=== PATIENT | male | born 1960 | race Caucasian/White ===

== ENCOUNTER → 2016-06-19 | Day surgery (SDC) | payer OTHER ==
[~2016-06-19] MED LIST: LACTATED RINGER'S 1000 ML INJ 1,000 ML ONE; PROPOFOL 500 MG/50 ML BTL IV ONE
--- NOTE | 2016-06-19 12:40 | GIPROC ---
[facility] [address], [id number] COLONOSCOPY PROCEDURE REPORT EXAM DATE: 06/19/2016 PATIENT NAME: Walker Villar MR #: [id number] BIRTHDATE: 1960 ENDOSCOPIST: Rufus Sen MD ORDER #: [id number] CATEGORY DIRECTOR: Shannon Linares RN STATUS: outpatient INDICATIONS: The patient is a 56 yr old male here for a colonoscopy due to high risk patient with personal history of colonic polyps PROCEDURE PERFORMED: Colonoscopy with polypectomy MEDICATIONS: None and Per Anesthesia. PREP QUALITY: fair ESTIMATED BLOOD LOSS: None CONSENT: The patient understands the risks and benefits of the procedure and understands that these risks include, but are not limited to: sedation, allergic reaction, infection, perforation and/or bleeding. Alternative means of evaluation and treatment include, among others: physical exam, x-rays, and/or surgical intervention. The patient elects to proceed with this endoscopic procedure. medical equipment was checked for proper function. Hand hygiene and appropriate measures for infection prevention was taken. After the risks, benefits and alternatives of the procedure were thoroughly explained, Informed consent was verified, confirmed and timeout was successfully executed by the treatment team. A digital exam revealed no abnormalities of the rectum The [id number] ([id number]) endoscope was introduced through the anus and advanced to the cecum, which was identified by both the appendix and ileocecal valve. The instrument was then slowly withdrawn as the colon was fully examined. COLON FINDINGS: Two medium sized smooth sessile polyps were found in the distal transverse colon and sigmoid colon. A polypectomy was performed with a cold snare. The resection was complete and the polyp tissue was completely retrieved. The colon mucosa was otherwise normal. Retroflexed views revealed no abnormalities The scope was then completely withdrawn from the patient and the procedure terminated. PROCEDURE WITHDRAWAL TIME:13.8minutes ADVERSE EVENTS: There were no complications. IMPRESSIONS: 1. Two medium sized sessile polyps were found in the distal transverse colon and sigmoid colon; polypectomy was performed with a cold snare 2. The colon mucosa was otherwise normal 3. Retroflexed views revealed no abnormalities 4. Revealed no abnormalities of the rectum RECOMMENDATIONS: 1. Await biopsy results. Biopsy results will not be ready for 7-10 days. If you don't hear from us in two weeks, call our office for results. 2. Yearly hemoccult 3. High fiber diet 4. Follow-up: GI Clinic PRN RECALL: Return 5 years Colonoscopy Rufus Sen MD eSigned: Rufus Sen MD 06/19/2016 12:40 PM cc: Khris Lopez M.D and Blaine Benjamin [facility] Brenda
== END | disposition home or self-care (01) ==
LOC: ESDC 10:54
PROVIDERS: ATTEND Internal Medicine Gastroenterology
DX: Z12.11 Encounter for screening for malignant neoplasm of colon (principal); Z86.010 Personal history of colon polyps; D12.3 Benign neoplasm of transverse colon; D12.5 Benign neoplasm of sigmoid colon
CPT/HCPCS: 00810; 45385; 88305; J3010; J7120

== ENCOUNTER 2017-09-21 13:29 | Inpatient (IN) ==
[2017-09-21] MEDS ORDERED: Vancomycin Inj 1,500 MG in Sodium Chlor 0.9% Inj 500 ML IV.SIG ONE (14:01)
[2017-09-21] MEDS ORDERED: Acetaminophen 500 MG Tablet PO ONE (14:03)
--- NOTE | 2017-09-21 14:13 | ED ---
HPI General Chief complaint: Dizziness Stated complaint: lt leg pain/dizzy/shakes x lastnight Time Seen by Provider: 09/21/17 13:48 History of Present Illness HPI narrative: This patient complains of pain and redness and warmth and swelling in his left leg. Started a day and a half ago. Severity of symptoms is moderate. He developed fever and chills. He has chronic swelling in both legs but the left leg is worse than usual. No injury. No alleviating factors. No exacerbating factors. Related Data Home Medications Medication Instructions Recorded Confirmed No Known Home Medications 09/21/17 09/21/17 Allergies Allergy/AdvReac Type Severity Reaction Status Date / Time No Known Allergies Allergy Unknown NONE Uncoded 09/21/17 13:37 Review of Systems Except as stated in HPI: all other systems reviewed are negative [facility] Medical History Medical History Patient denies medical problems (Acute) Surgical History Surgical History No history of previous surgery (Acute) Social History Social History Substance History: No History of Abuse Smoking Status: Current every day smoker Tobacco Type: Cigarettes How Often Do You Have a Drink Containing Alcohol: 2 to 3 times a week Recent Travel in [facility] within the Last 8 Weeks: No Recent Out of Country Travel within the Last 8 Weeks: No Immunization History Tetanus Immunization: Unsure Hx Influenza Vaccine This Season: No Exam Narrative Exam Narrative: GENERAL: Well-nourished, well-developed patient with leg swelling and redness and fever . SKIN: Focused skin assessment reveals no rash and nodules. Skin is Warm and dry. HEAD: Atraumatic. Normocephalic. EYES: Pupils equal and round. No scleral icterus. No injection or drainage. ENT: No nasal bleeding or discharge. Mucous membranes pink and moist. Throat clear NECK: Trachea midline. No JVD. No meningeal signs CARDIOVASCULAR: Regular rate and rhythm. No murmur appreciated. RESPIRATORY: No accessory muscle use. Clear to auscultation. Breath sounds equal bilaterally. GASTROINTESTINAL: Abdomen soft, non-tender, nondistended. Hepatic and splenic margins not palpable. MUSCULOSKELETAL: No obvious deformities. No clubbing. No cyanosis. Has edema in both feet and lower legs. The left leg has warmth and erythema over the guzmán region. Some of the foot as well. There is a patch of erythema near the left groin. NEUROLOGICAL: Awake and alert. No obvious cranial nerve deficits. Motor grossly within normal limits. Normal speech. PSYCHIATRIC: Appropriate mood and affect; insight and judgment normal. Course Initial Documented Vital Signs Temperature 102.5 F H 09/21/17 13:37 Pulse Rate 114 H 09/21/17 13:37 Blood Pressure 146/66 H 09/21/17 13:37 Pulse Oximetry 92 L 09/21/17 13:37 Last Documented Vital Signs Temperature 102.5 F H 09/21/17 13:37 Pulse Rate 114 H 09/21/17 13:37 Blood Pressure 146/66 H 09/21/17 13:37 Pulse Oximetry 92 L 09/21/17 13:37 Medical Decision Making MDM Narrative Medical decision making narrative: IV placed and labs sent Blood cultures obtained 2 followed by 1.5 g IV vancomycin I am ordering an ultrasound to rule out DVT but I think this is more cellulitis consistent Tylenol given for fever DVT ultrasound is negative He has prominent leukocytosis with normal metabolic's Patient is febrile and tachycardic and his cellulitis is fairly rapidly progressive. I would recommend IV antibiotics in the hospital. I placed a call to the [facility] physician to discuss Differential Diagnosis Differential Diagnosis: Cellulitis, DVT, sepsis Medical Records Medical records reviewed: Yes I reviewed the patient's medical records. Lab Data Result diagrams: 09/21/17 14:30 09/21/17 14:30 Lab Results 09/21/17 09/21/17 09/21/17 Range/Units 14:30 14:30 14:30 CBC w Diff Auto diff final WBC 19.9 H (4.0-11.0) th/mm3 RBC 5.02 (4.50-5.90) mil/mm3 Hgb 14.4 (13.0-17.0) gm/dL Hct 43.0 (39.0-51.0) % MCV 85.6 (80.0-100.0) fL MCH 28.7 (27.0-34.0) pg MCHC 33.5 (32.0-36.0) % RDW 14.0 (11.6-17.2) % Plt Count 198 (150-450) th/mm3 MPV 8.6 (7.0-11.0) fL Neut % (Auto) 92.5 H (16.0-70.0) % Lymph % (Auto) 3.8 L (9.0-44.0) % [place] % (Auto) 2.1 (0.0-8.0) % Eos % (Auto) 0.0 (0.0-4.0) % Baso % (Auto) 1.6 (0.0-2.0) % Neut # (Auto) 18.4 H (1.8-7.7) th/mm3 Lymph # (Auto) 0.8 L (1.0-4.8) th/mm3 [place] # (Auto) 0.4 (0.0-0.9) th/mm3 Eos # (Auto) 0.0 (0.0-0.4) th/mm3 Baso # (Auto) 0.3 H (0.0-0.2) th/mm3 WBC Differential . Differential Comment . PT 11.2 (9.8-11.6) sec INR 1.1 Ratio APTT 29.4 (24.3-30.1) sec Sodium 135 L (136-145) meq/L Potassium 3.8 (3.5-5.1) meq/L Chloride 104 (98-107) meq/L Carbon Dioxide 25.5 (21.0-32.0) meq/L Anion Gap 6 (5-15) meq/L BUN 17 (7-18) mg/dL Creatinine 1.30 (0.60-1.30) mg/dL Estimated GFR 57 L (>89) mL/min Random Glucose 100 (74-106) mg/dL Calcium 8.1 L (8.5-10.1) mg/dL Imaging Data Radiologist's impression: Venous Doppler Study 09/21/17 14:03 CONCLUSION: 1. Negative for deep venous thrombosis. Discharge Plan Discharge Disposition Patient Disposition: 30 Still Patient Discharge Details Diagnosis: Cellulitis of left lower leg Physicians Team ED Provider: Deon Diaz Primary Care Provider: Khris Lopez Rxs /Orders / Referrals /Forms Prescriptions: No Action No Known Home Medications RF: 0 Status ED Status: Admitted Patient
[2017-09-21 14:47] LABS: Baso # (Auto) 0.3 th/mm3 (0.0-0.2); Baso % (Auto) 1.6 % (0.0-2.0); Hemoglobin 14.4 gm/dL (13.0-17.0); Lymph # (Auto) 0.8 th/mm3 (1.0-4.8); Lymph % (Auto) 3.8 % (9.0-44.0); Mean Corpuscular HGB Conc 33.5 % (32.0-36.0); Mean Corpuscular Hemoglobin 28.7 pg (27.0-34.0); Mean Corpuscular Volume 85.6 fL (80.0-100.0); Mean Platelet Volume 8.6 fL (7.0-11.0); Mono # (Auto) 0.4 th/mm3 (0.0-0.9); Mono % (Auto) 2.1 % (0.0-8.0); Neut # (Auto) 18.4 th/mm3 (1.8-7.7); Neut % (Auto) 92.5 % (16.0-70.0); Platelet Count 198 th/mm3 (150-450); Red Blood Count 5.02 mil/mm3 (4.50-5.90); White Blood Count 19.9 th/mm3 (4.0-11.0)
[2017-09-21 14:55] LABS: Potassium 3.8 meq/L (3.5-5.1)
[2017-09-21 14:57] LABS: Calcium 8.1 mg/dL (8.5-10.1)
[2017-09-21 14:58] LABS: Carbon Dioxide 25.5 meq/L (21.0-32.0)
[2017-09-21 15:00] LABS: Activated Partial Thrombo Time 29.4 sec (24.3-30.1); INR 1.1 Ratio; Prothrombin Time 11.2 sec (9.8-11.6)
--- NOTE | 2017-09-21 15:09 | US ---
EXAM DATE: 09/21/2017 3:04 PM EDT AGE/SEX: 57 years / Male INDICATIONS: Left leg redness, pain, and swelling. CLINICAL DATA: This is the patient's initial encounter. Patient reports that signs and symptoms have been present for 1 day and indicates a pain score of 10/10. MEDICAL/SURGICAL HISTORY: . Left leg redness, pain, and swelling. None. COMPARISON: No prior exams available for comparison. TECHNIQUE: Venous ultrasound of both lower extremities was performed from the inguinal ligament to t he proximal calf. Real-time, color Doppler and spectral tracing, compression and augmentation techni ques were used. FINDINGS: Normal compression of the deep venous system from the inguinal region to the proximal calf . No echogenic clot is seen. Normal response of the venous system to augmentation and respiration. CONCLUSION: 1. Negative for deep venous thrombosis. Electronically signed by: Alex Bae MD 09/21/2017 3:08 PM EDT
[2017-09-21] MEDS ORDERED: Vancomycin Consult Pharmacy 1 EACH OTHER SCH (16:19)
[2017-09-21] MEDS ORDERED: Sod Chloride 0.9% Inj 1,000 ML IV.CONT SCH (16:21)
[2017-09-21] MEDS: Enoxaparin Inj 40 MG/0.4 ML Syringe SQ SCH (16:45)
[2017-09-21] MEDS ORDERED: Vancomycin Inj 1,500 MG in Sodium Chlor 0.9% Inj 500 ML IV.SIG SCH (17:00)
[2017-09-21] MEDS: Acetaminophen 325 MG Tablet PO PRN (17:38)
[2017-09-21] MEDS: Sod Chloride 0.9% Inj 1,000 ML IV.CONT SCH ×3 (17:59→18:29)
--- NOTE | 2017-09-21 18:12 | P.HP ---
History of Present Illness Primary Care Physician: Khris Lopez MD History of Present Illness: States that last pm at around 8 to 830 developed sudden onset of chills and malaise. Had been in usual state of health no other symptoms, no cough (other then his regular smokers cough) no sob, no abdominal pain or change in bowel movements, no difficulyu voiding , he has chronic lower extremity edema at baseline, he does state that he had some left groin discomfort that at this point is resolved. He took 4 ibuprofen pm last night to help with the chills. When he felt no better he came to the ER today. He states when he lowered his pants was when the redness in his left leg became noticeable. He denies any pain to the leg unless it is touched, he recalls no injury or cut to his left leg. - Diagnosis (1) Cellulitis of left lower leg (2) Wheezing on auscultation (3) Lower extremity edema (4) AMINA (obstructive sleep apnea) Inpatient Certification: I certify that the inpatient services were ordered in accordance with Medicare regulations governing the order. This includes certification that hospital inpatient services are reasonable and necessary and in the case of services not specified as inpatient-only under 42 CFR 419.22(n), that they are appropriately provided as inpatient services in accordance to with the 2-midnight benchmark under 43 CFR 412.3(e) Estimated Total Length of Stay (Days): 2 Plans for Post Hospital Care: Not yet determined Review of Systems All other systems reviewed negative except as stated in HPI [facility] - History History Provided By: Patient, Medical Record - Medical History Medical History: Medical History (Last Updated 09/21/17 @ 17:53 by Lara Wilcox MD) Lower extremity edema Morbid obesity with BMI of 45.0-49.9, adult AMINA (obstructive sleep apnea) Vascular insufficiency of extremity - Surgical History Surgical History: Surgical History (Last Updated 09/21/17 @ 17:53 by Lara Wilcox MD) H/O arthroscopic knee surgery - Family History Family History: Family History (Last Updated 09/21/17 @ 17:54 by Lara Wilcox MD) Father Family history of diabetes mellitus Mother Family history of diabetes mellitus COPD (chronic obstructive pulmonary disease) - Tobacco History Tobacco Use In Past 30 Days: Yes Smoking Status: Current every day smoker Tobacco Type: Cigarettes Packs Per Day: 1.5 - Alcohol History How Often Do You Have a Drink Containing Alcohol: 2 to 3 times a week - Substance Use History Substance History: No History of Abuse - Travel History Recent Travel in the [place] Within the Last 8 Weeks: No Recent Travel Out of the Country Within the Last 8 Weeks: No - Immunization History Tetanus Immunization: Unsure Hx Influenza Vaccine This Season: No Medications and Allergies Active Medications: Active Medications Acetaminophen (Tylenol) 650 mg PO Q4H PRN PRN Reason: TEMP>100.4F,PAIN1-10,IRRITABLE Last Admin: 09/21/17 17:38 Dose: 650 mg Al Hydroxide/Mg Hydroxide (Milk Of Magnesia Liq) 30 ml PO Q12H PRN PRN Reason: Mild Constipation Enoxaparin Sodium (Lovenox Inj) 40 mg SQ Q24H ISHAN Last Admin: 09/21/17 16:45 Dose: 40 mg Pharmacy Profile Note (Vancomycin Consult Pharmacy) 0 mls @ 0 mls/hr OTHER UNSCH ISHAN Vancomycin HCl 1,500 mg/ (Sodium Chloride) 515 mls @ 250 mls/hr IV.SIG Q12H ISHAN Sodium Chloride (Ns Inj) 1,000 mls @ 100 mls/hr IV.CONT .Q10H ISHAN Sodium Chloride (Ns Inj) 1,000 mls @ 125 mls/hr IV.CONT .Q8H ISHAN Ondansetron HCl (Zofran Inj) 4 mg IV.PUSH Q6H PRN PRN Reason: NAUSEA OR VOMITING Sennosides (Senokot) 17.2 mg PO Q12H PRN PRN Reason: Moderate Constipation Temazepam (Restoril) 15 mg PO HS PRN PRN Reason: INSOMNIA Allergies Allergy/AdvReac Type Severity Reaction Status Date / Time No Known Allergies Allergy Unknown NONE Uncoded 09/21/17 13:37 Home Medications Medication Instructions Recorded Confirmed Type No Known Home Medications 09/21/17 09/21/17 History Exam Vital signs: Vital Signs 09/21/17 13:37 09/21/17 16:05 09/21/17 16:13 Temperature 102.5 F H 99.9 F H Pulse Rate 114 H 103 H Respiratory Rate 16 Blood Pressure 146/66 H 119/54 L Pulse Oximetry 92 L 100 Intake & Output 09/20/17 09/21/17 09/21/17 18:59 06:59 18:59 Intake Total 515 / 515 Balance 515 / 515 Weight 175.5 kg Intake: IV 515 / 515 Vancomycin Inj 1,500 MG In NS 515 / 515 Inj 500 ML @ 250 mls/hr IV.SIG ONCE ONE Rx#:[id number] - Constitutional moderate distress, morbidly obese - Routine HEENT Exam Head: Present: normocephalic Eye: Present: EOMI ENT: Present: mucous membranes moist - Routine Respiratory Exam Present: wheezes - Routine Cardiovascular Exam Present: RRR - Routine Abdominal Exam Present: soft, normoactive bowel sounds - Routine Extremities Exam Present: edema Comments: bilateral edema left greater then right - Routine Skin Exam Present: erythema, warm, scars Comments: left lower extremity red, hot from dorsum of foot to knee circumferential , tender to touch, no skin breakdown or wounds, rt knee scars from prior arthoscopic surgery - Routine Neurological Exam Present: alert, oriented X3 Results - Labs CBC & Chem 7: 09/21/17 14:30 09/21/17 14:30 Labs: Laboratory Results - last 24 hr 09/21/17 09/21/17 09/21/17 14:30 14:30 14:30 CBC w Diff Auto diff final WBC 19.9 H RBC 5.02 Hgb 14.4 Hct 43.0 MCV 85.6 MCH 28.7 MCHC 33.5 RDW 14.0 Plt Count 198 MPV 8.6 Neut % (Auto) 92.5 H Lymph % (Auto) 3.8 L [place] % (Auto) 2.1 Eos % (Auto) 0.0 Baso % (Auto) 1.6 Neut # (Auto) 18.4 H Lymph # (Auto) 0.8 L [place] # (Auto) 0.4 Eos # (Auto) 0.0 Baso # (Auto) 0.3 H WBC Differential . Differential Comment . PT 11.2 INR 1.1 APTT 29.4 Sodium 135 L Potassium 3.8 Chloride 104 Carbon Dioxide 25.5 Anion Gap 6 BUN 17 Creatinine 1.30 Estimated GFR 57 L Random Glucose 100 Calcium 8.1 L - Imaging Impressions Venous Doppler Study 09/21/17 14:03 CONCLUSION: 1. Negative for deep venous thrombosis. Caprini VTE Risk Assessment Caprini VTE Risk Assessment: No/Low Risk (score <= 1) Caprini Risk Assessment Model: Point Value = 1 Point Value = 2 Point Value = 3 Point Value = 5 Age 41-60 Minor surgery BMI > 25 kg/m2 Swollen legs Varicose veins or History of unexplained or recurrent spontaneous Oral contraceptives or hormone replacement Sepsis (< 1 month) Serious lung disease, including pneumonia (< 1 month) Abnormal pulmonary function Acute myocardial infarction Congestive heart failure (< 1 month) History of inflammatory bowel disease Medical patient at bed rest Age 61-74 Arthroscopic surgery Major open surgery (> 45 min) Laparoscopic surgery (> 45 min) Malignancy Confined to bed (> 72 hours) Immobilizing plaster cast Central venous access Age >= 75 History of VTE Family history of VTE Factor V Leiden Prothrombin [id number] Lupus anticoagulant Anticardiolipin antibodies Elevated serum homocysteine Heparin-induced thrombocytopenia Other congenital or acquired thrombophilia Stroke (< 1 month) Elective arthroplasty Hip, pelvis, or leg fracture Acute spinal cord injury (< 1 month) Prophylaxis Regimen: Total Risk Factor Score Risk Level Prophylaxis Regimen 0-1 Low Early ambulation 2 Moderate Order ONE of the following: *Sequential Compression Device (SCD) *Heparin 5000 units SQ BID 3-4 Higher Order ONE of the following medications: *Heparin 5000 units SQ TID *Enoxaparin/Lovenox 40 mg SQ daily (WT < 150 kg, CrCl > 30 mL/min) *Enoxaparin/Lovenox 30 mg SQ daily (WT < 150 kg, CrCl > 10-29 mL/min) *Enoxaparin/Lovenox 30 mg SQ BID (WT < 150 kg, CrCl > 30 mL/min) AND/OR *Sequential Compression Device (SCD) 5 or more Highest Order ONE of the following medications: *Heparin 5000 units SQ TID (Preferred with Epidurals) *Enoxaparin/Lovenox 40 mg SQ daily (WT < 150 kg, CrCl > 30 mL/min) *Enoxaparin/Lovenox 30 mg SQ daily (WT < 150 kg, CrCl > 10-29 mL/min) *Enoxaparin/Lovenox 30 mg SQ BID (WT < 150 kg, CrCl > 30 mL/min) AND *Sequential Compression Device (SCD) Assessment and Plan - Assessment (1) Cellulitis of left lower leg Code(s): L03.116 - Cellulitis of left lower limb Status: Acute Plan: started on vancomycin IV, acetaminophen to control fever, he doesnt really complain of pain (2) Wheezing on auscultation Code(s): R06.2 - Wheezing Status: Acute Onset Date: ~09/21/17 Plan: bryan , he states he doesnt have inhalers but uses his wifes, has chronic cough, still smokes, will address smoking cessation (3) Lower extremity edema Code(s): R60.0 - Localized edema Status: Chronic Plan: states his primary has done extensive work up may delay response to treatment, will keep elevated, his leg is tender to touch so compression stockings would cause his pain at this point (4) AMINA (obstructive sleep apnea) Code(s): G47.33 - Obstructive sleep apnea (adult) (pediatric) Status: Chronic Plan: have asked family to bring machine in from home
[2017-09-21] MEDS: Vancomycin Inj 2,200 MG in Sodium Chlor 0.9% Inj 500 ML IV.SIG SCH (23:14)
[2017-09-22] MEDS: Sod Chloride 0.9% Inj 1,000 ML IV.CONT SCH ×5 (01:50→18:36)
[2017-09-22] MEDS: Acetaminophen 325 MG Tablet PO PRN ×4 (01:51→20:41)
[2017-09-22 06:41] LABS: Baso # (Auto) 0.1 th/mm3 (0.0-0.2); Baso % (Auto) 0.4 % (0.0-2.0); Eos % (Auto) 0.1 % (0.0-4.0); Hematocrit 40.2 % (39.0-51.0); Hemoglobin 13.6 gm/dL (13.0-17.0); Lymph # (Auto) 1.1 th/mm3 (1.0-4.8); Lymph % (Auto) 6.5 % (9.0-44.0); Mean Corpuscular HGB Conc 33.7 % (32.0-36.0); Mean Corpuscular Hemoglobin 28.9 pg (27.0-34.0); Mean Corpuscular Volume 85.5 fL (80.0-100.0); Mean Platelet Volume 8.6 fL (7.0-11.0); Mono # (Auto) 0.3 th/mm3 (0.0-0.9); Mono % (Auto) 1.8 % (0.0-8.0); Neut # (Auto) 15.5 th/mm3 (1.8-7.7); Neut % (Auto) 91.2 % (16.0-70.0); Platelet Count 157 th/mm3 (150-450); Red Blood Count 4.69 mil/mm3 (4.50-5.90); Red Cell Distribution Width 14.3 % (11.6-17.2)
[2017-09-22 06:49] LABS: Chloride 101 meq/L (98-107); Potassium 4.1 meq/L (3.5-5.1); Sodium 135 meq/L (136-145)
[2017-09-22 06:54] LABS: Calcium 7.9 mg/dL (8.5-10.1)
[2017-09-22 06:55] LABS: Albumin 2.8 g/dL (3.4-5.0); Anion Gap 7 meq/L (5-15); Blood Urea Nitrogen 20 mg/dL (7-18); Carbon Dioxide 27.5 meq/L (21.0-32.0); Glucose,Random 110 mg/dL (74-106)
[2017-09-22 06:58] LABS: Alanine Aminotransferase 58 U/L (12-78); Aspartate Aminotransferase 41 U/L (15-37); Glomerular Filtration Rate 48 mL/min (>89)
[2017-09-22 07:00] LABS: Total Protein 6.8 g/dL (6.4-8.2)
[2017-09-22 07:01] LABS: Alkaline Phosphatase 82 U/L (45-117)
--- NOTE | 2017-09-22 11:18 | P.PN ---
Subjective Interval history: not feeling well, still feverish, decreased appetite, using his cpap, no pain in the leg, general malaise Physical Exam Vital signs: Vital Signs 09/21/17 13:37 09/21/17 16:05 09/21/17 16:13 Temperature 102.5 F H 99.9 F H Pulse Rate 114 H 103 H Respiratory Rate 16 Blood Pressure 146/66 H 119/54 L Pulse Oximetry 92 L 100 09/21/17 17:48 09/21/17 19:38 09/21/17 20:00 Temperature 99.4 F 102.8 F H Pulse Rate 96 H 103 H 101 H Respiratory Rate 20 20 20 Blood Pressure 171/74 H 121/80 Pulse Oximetry 94 L 95 96 09/22/17 00:00 09/22/17 07:25 09/22/17 08:00 Temperature 102.4 F H 101.0 F H Pulse Rate 107 H 110 H 107 H Respiratory Rate 20 24 20 Blood Pressure 141/72 H Pulse Oximetry 94 L 93 L Intake & Output 09/21/17 09/22/17 09/22/17 18:59 06:59 18:59 Intake Total 515 / 515 2522 / 2522 1240 / 1240 Output Total 240 / 240 Balance 515 / 515 2522 / 2522 1000 / 1000 Weight 175.3 kg 178.5 kg Intake: IV 515 / 515 2522 / 2522 1000 / 1000 NS Inj 1,000 ML @ 125 mls/hr IV 2000 / 2000 1000 / 1000 .CONT .Q8H ISHAN Rx#:[id number] Vancomycin Inj 2,200 MG In NS 515 / 515 522 / 522 Inj 500 ML @ 261 mls/hr IV.SIG Q12H ISHAN Rx#:[id number] Oral 240 / 240 Output: Urine 240 / 240 Other: # Voids 5 # Bowel Movements 1 Weight On Admission 175.3 kg - Constitutional mild distress, morbidly obese Comments: looks very uncomfortable , using his cpap - Routine HEENT Exam Head: Present: normocephalic Eye: Present: EOMI - Routine Respiratory Exam Present: CTA bilaterally - Routine Cardiovascular Exam Present: tachycardia - Routine Abdominal Exam Present: soft - Routine Skin Exam Comments: left lower extremity erythema dorsum of foot to knee, circumferential, no obvious skin breakdown, less hot to touch today - Routine Neurological Exam Present: alert Results - Labs CBC & Chem 7: 09/22/17 05:42 09/22/17 05:42 Laboratory Results - last 24 hr 09/21/17 09/21/17 09/21/17 14:30 14:30 14:30 CBC w Diff Auto diff final WBC 19.9 H RBC 5.02 Hgb 14.4 Hct 43.0 MCV 85.6 MCH 28.7 MCHC 33.5 RDW 14.0 Plt Count 198 MPV 8.6 Neut % (Auto) 92.5 H Lymph % (Auto) 3.8 L [place] % (Auto) 2.1 Eos % (Auto) 0.0 Baso % (Auto) 1.6 Neut # (Auto) 18.4 H Lymph # (Auto) 0.8 L [place] # (Auto) 0.4 Eos # (Auto) 0.0 Baso # (Auto) 0.3 H WBC Differential . Differential Comment . PT 11.2 INR 1.1 APTT 29.4 Sodium 135 L Potassium 3.8 Chloride 104 Carbon Dioxide 25.5 Anion Gap 6 BUN 17 Creatinine 1.30 Estimated GFR 57 L Random Glucose 100 Calcium 8.1 L Total Bilirubin AST ALT Alkaline Phosphatase Total Protein Albumin 09/22/17 09/22/17 05:42 05:42 CBC w Diff Auto diff final WBC 17.0 H RBC 4.69 Hgb 13.6 Hct 40.2 MCV 85.5 MCH 28.9 MCHC 33.7 RDW 14.3 Plt Count 157 MPV 8.6 Neut % (Auto) 91.2 H Lymph % (Auto) 6.5 L [place] % (Auto) 1.8 Eos % (Auto) 0.1 Baso % (Auto) 0.4 Neut # (Auto) 15.5 H Lymph # (Auto) 1.1 [place] # (Auto) 0.3 Eos # (Auto) 0.0 Baso # (Auto) 0.1 WBC Differential . Differential Comment . PT INR APTT Sodium 135 L Potassium 4.1 Chloride 101 Carbon Dioxide 27.5 Anion Gap 7 BUN 20 H Creatinine 1.50 H Estimated GFR 48 L Random Glucose 110 H Calcium 7.9 L Total Bilirubin 0.8 AST 41 H ALT 58 Alkaline Phosphatase 82 Total Protein 6.8 Albumin 2.8 L - Imaging Impressions Venous Doppler Study 09/21/17 14:03 CONCLUSION: 1. Negative for deep venous thrombosis. Assessment and Plan - Assessment (1) Cellulitis of left lower leg Code(s): L03.116 - Cellulitis of left lower limb Status: Acute Plan: started on vancomycin IV, acetaminophen to control fever, had had only one dose of antibiotic, pharmacy adjusting should be geting second dose at noon, still with temperature, will ask ID to see him, he looks toxic and his chronic lower ext edema and venous insuffiency may prolong course (2) Wheezing on auscultation Code(s): R06.2 - Wheezing Status: Acute Onset Date: ~09/21/17 Plan: duonebs , started last night, lungs clear today anteriorly, subjectively he feels it helps (3) Lower extremity edema Code(s): R60.0 - Localized edema Status: Acute Plan: states his primary has done extensive work up may delay response to treatment, will keep elevated, his leg is tender to touch so compression stockings would cause his pain at this point , hold off on diuretics as renal function a little lower today (4) AMINA (obstructive sleep apnea) Code(s): G47.33 - Obstructive sleep apnea (adult) (pediatric) Status: Chronic Plan: he is using his cpap. he is a large man. will have him try to sit in recliner with leg elevated to help with pulmonary function - Plan Discussed Condition With: patient and
[2017-09-22] MEDS: Vancomycin Inj 2,200 MG in Sodium Chlor 0.9% Inj 500 ML IV.SIG SCH (12:10)
[2017-09-22] MEDS: Enoxaparin Inj 40 MG/0.4 ML Syringe SQ SCH (18:35)
--- NOTE | 2017-09-22 19:00 | P.CONID ---
History of Present Illness Service: ID Consult date: 09/22/17 Requesting Physician: Lara Wilcox Reason for Consult: LLE cellulits Primary Care Provider: Khris Lopez MD History of Present Illness: 57 yo male with morbid obesity and chronic venostaiss developped marked swelling and redness and pain of his LLE with redness extending from the foot up to the groin He also developped fever, chills He started to have nausea after abx were stasrted He thinks his leg somewhat better today, though it still remains markedly swollen and red Fever up to 102.8 yday, WBC in 19K range blood clx are negative so far @ 1 day Pt was started on vancomycin Review of Systems All other systems reviewed negative except as stated in HPI PMFSH - History History Provided By: Patient, Medical Record - Medical History Medical History: Medical History (Last Reviewed 11/20/17 @ 10:34 by Dunia Boo MD) Lower extremity edema Morbid obesity with BMI of 45.0-49.9, adult AMINA (obstructive sleep apnea) Vascular insufficiency of extremity - Surgical History Surgical History: Surgical History (Last Reviewed 11/20/17 @ 10:34 by Dunia Boo MD) H/O arthroscopic knee surgery - Family History Family History: Family History (Last Reviewed 11/20/17 @ 10:34 by Dunia Boo MD) Father Family history of diabetes mellitus Mother Family history of diabetes mellitus COPD (chronic obstructive pulmonary disease) - Social History I have reviewed the patient's Social History: Yes - Tobacco History Second Hand Smoke Exposure: No Tobacco Use In Past 30 Days: Yes Smoking Status: Current every day smoker Tobacco Type: Cigarettes Packs Per Day: 1.5 - Alcohol History How Often Do You Have a Drink Containing Alcohol: 2 to 3 times a week - Substance Use History Substance History: No History of Abuse - Travel History Recent Travel in the [place] Within the Last 8 Weeks: No Recent Travel Out of the Country Within the Last 8 Weeks: No - Immunization History Tetanus Immunization: Unsure Hx Influenza Vaccine This Season: No Medications and Allergies Active Medications: Active Medications Acetaminophen (Tylenol) 650 mg PO Q4H PRN PRN Reason: TEMP>100.4F,PAIN1-10,IRRITABLE Last Admin: 09/22/17 13:42 Dose: 650 mg Al Hydroxide/Mg Hydroxide (Milk Of Magnesia Liq) 30 ml PO Q12H PRN PRN Reason: Mild Constipation Albuterol (Duoneb Neb (Rudi)) 1 ampul NEB Q6HR WHILE AWAKE NEB [facility] Last Admin: 09/22/17 13:43 Dose: 1 ampul Enoxaparin Sodium (Lovenox Inj) 40 mg SQ Q24H [facility] Last Admin: 09/22/17 18:35 Dose: 40 mg Pharmacy Profile Note (Vancomycin Consult Pharmacy) 0 mls @ 0 mls/hr OTHER UNSCH [facility] Vancomycin HCl 2,200 mg/ (Sodium Chloride) 522 mls @ 261 mls/hr IV.SIG Q12H [facility] Last Infusion: 09/22/17 14:16 Dose: Infused Sodium Chloride (Ns Inj) 1,000 mls @ 150 mls/hr IV.CONT .Q6H40M [facility] Last Admin: 09/22/17 18:36 Dose: 150 mls/hr Miscellaneous Information ([facility] [place]dered Lab Info) 0 each OTHER ONCE ONE Stop: 09/22/17 23:46 Ondansetron HCl (Zofran Inj) 4 mg IV.PUSH Q6H PRN PRN Reason: NAUSEA OR VOMITING Last Admin: 09/22/17 14:52 Dose: 4 mg Sennosides (Senokot) 17.2 mg PO Q12H PRN PRN Reason: Moderate Constipation Temazepam (Restoril) 15 mg PO HS PRN PRN Reason: INSOMNIA Allergies Allergy/AdvReac Type Severity Reaction Status Date / Time No Known Allergies Allergy Unknown NONE Uncoded 09/21/17 13:37 Exam Vital signs: Vital Signs 09/21/17 19:38 09/21/17 20:00 09/22/17 00:00 Temperature 102.8 F H 102.4 F H Pulse Rate 103 H 101 H 107 H Respiratory Rate 20 20 20 Blood Pressure 121/80 141/72 H Pulse Oximetry 95 96 94 L 09/22/17 07:25 09/22/17 08:00 09/22/17 12:00 Temperature 101.0 F H 99.3 F Pulse Rate 110 H 107 H 90 Respiratory Rate 24 20 22 Blood Pressure 138/60 Pulse Oximetry 93 L 94 L 96 09/22/17 13:48 09/22/17 16:00 Temperature 100.2 F H Pulse Rate 105 H 96 H Respiratory Rate 24 22 Blood Pressure 130/68 Pulse Oximetry 96 Intake & Output 09/21/17 09/22/17 09/22/17 18:59 06:59 18:59 Intake Total 515 / 515 2522 / 2522 3252 / 3252 Output Total 541 / 541 Balance 515 / 515 2522 / 2522 2711 / 2711 Weight 175.3 kg 178.5 kg Intake: IV 515 / 515 2522 / 2522 2522 / 2522 NS Inj 1,000 ML @ 150 mls/hr IV 1999 .CONT .Q6H40M [facility] Rx#: [id number] Vancomycin Inj 2,200 MG In NS 515 / 515 522 / 522 522 / 522 Inj 500 ML @ 261 mls/hr IV.SIG Q12H [facility] Rx#:[id number] Oral 730 / 730 Output: Urine 540 / 540 Stool Other: # Voids 5 Date of Last Bowel Movement 09/22/17 # Bowel Movements 1 Weight On Admission 175.3 kg - Constitutional no acute distress, morbidly obese - Routine HEENT Exam Head: Present: normocephalic, atraumatic Eye: Present: EOMI, PERRL ENT: Present: mucous membranes moist, oropharynx clear - Routine Respiratory Exam Present: decreased breath sounds, CTA bilaterally - Routine Cardiovascular Exam Present: RRR, S1, S2 Comments: no murmurs rusb gallops well perfused perifery - Routine Abdominal Exam Present: soft Comments: not tender not distendeed no organomeagly no masses - Routine Extremities Exam Present: edema (Marked O LLE 4+ and 2+ on RLE) Comments: STATuS LOCALIS marked erythema, edema of LLE with lymphangitic streaks extending to the L groin No fluctuance no open wound + tender to palpaation - Routine Skin Exam Present: warm, rash (LLE diffuse) - Routine Neurological Exam Present: alert, oriented X3, CN II-XII intact, moving all extremities, vision grossly intact, hearing grossly intact, normal speech - Routine Psychiatric Exam Present: normal affect, normal thought process Results - Labs CBC & Chem 7: 10/06/17 08:43 10/06/17 08:43 Labs: Laboratory Results - last 24 hr 09/22/17 09/22/17 05:42 05:42 CBC w Diff Auto diff final WBC 17.0 H RBC 4.69 Hgb 13.6 Hct 40.2 MCV 85.5 MCH 28.9 MCHC 33.7 RDW 14.3 Plt Count 157 MPV 8.6 Neut % (Auto) 91.2 H Lymph % (Auto) 6.5 L [place] % (Auto) 1.8 Eos % (Auto) 0.1 Baso % (Auto) 0.4 Neut # (Auto) 15.5 H Lymph # (Auto) 1.1 [place] # (Auto) 0.3 Eos # (Auto) 0.0 Baso # (Auto) 0.1 WBC Differential . Differential Comment . Sodium 135 L Potassium 4.1 Chloride 101 Carbon Dioxide 27.5 Anion Gap 7 BUN 20 H Creatinine 1.50 H Estimated GFR 48 L Random Glucose 110 H Calcium 7.9 L Total Bilirubin 0.8 AST 41 H ALT 58 Alkaline Phosphatase 82 Total Protein 6.8 Albumin 2.8 L Assessment and Plan - Plan Morbid obesity with chronicvenostasis LLE cellulitis Ancef cont vancomycin
[2017-09-22] MEDS ORDERED: ceFAZolin Inj 2,000 MG in Sodium Chlor 0.9% Inj 80 ML IV.SIG SCH (20:00)
[2017-09-22] MEDS ORDERED: ceFAZolin 2 GM Premix Inj 2 GM/100 ML BAG IV.SIG SCH (20:00)
[2017-09-22] MEDS: ceFAZolin 2 GM Premix Inj 2 GM/50 ML PIGGYBACK IV.SIG SCH (20:41)
[2017-09-22] MEDS: Temazepam 15 MG Capsule PO PRN (20:42)
[2017-09-22] MEDS ORDERED: Pharmacy Ordered Lab Info OTHER ONE (23:45)
[2017-09-23] MEDS: Vancomycin Inj 2,200 MG in Sodium Chlor 0.9% Inj 500 ML IV.SIG SCH ×2 (01:06→11:51)
[2017-09-23] MEDS: Sod Chloride 0.9% Inj 1,000 ML IV.CONT SCH ×4 (03:51→15:55)
[2017-09-23] MEDS: Acetaminophen 325 MG Tablet PO PRN ×3 (04:05→16:27)
[2017-09-23 06:00] LABS: Baso # (Auto) 0.1 th/mm3 (0.0-0.2); Baso % (Auto) 0.7 % (0.0-2.0); Hematocrit 37.1 % (39.0-51.0); Lymph # (Auto) 1.1 th/mm3 (1.0-4.8); Lymph % (Auto) 7.9 % (9.0-44.0); Mean Corpuscular HGB Conc 32.3 % (32.0-36.0); Mean Corpuscular Hemoglobin 27.4 pg (27.0-34.0); Mean Corpuscular Volume 84.7 fL (80.0-100.0); Mean Platelet Volume 8.2 fL (7.0-11.0); Mono # (Auto) 0.2 th/mm3 (0.0-0.9); Mono % (Auto) 1.2 % (0.0-8.0); Neut % (Auto) 90.2 % (16.0-70.0); Platelet Count 129 th/mm3 (150-450); Red Blood Count 4.38 mil/mm3 (4.50-5.90); Red Cell Distribution Width 13.9 % (11.6-17.2); White Blood Count 13.4 th/mm3 (4.0-11.0)
[2017-09-23] MEDS: ceFAZolin 2 GM Premix Inj 2 GM/50 ML PIGGYBACK IV.SIG SCH ×3 (06:25→20:22)
[2017-09-23 06:36] LABS: Calcium 7.4 mg/dL (8.5-10.1); Carbon Dioxide 22.9 meq/L (21.0-32.0); Potassium 3.2 meq/L (3.5-5.1)
[2017-09-23 06:50] LABS: Total Protein 6.1 g/dL (6.4-8.2)
[2017-09-23 11:30] LABS: Chloride 100 meq/L (98-107); Potassium 3.5 meq/L (3.5-5.1); Sodium 133 meq/L (136-145)
[2017-09-23 11:33] LABS: Albumin 2.6 g/dL (3.4-5.0); Anion Gap 7 meq/L (5-15); Calcium 7.8 mg/dL (8.5-10.1); Carbon Dioxide 25.6 meq/L (21.0-32.0)
--- NOTE | 2017-09-23 11:33 | P.PN ---
Subjective Interval history: no new complaints, leg hurts when he walks on it , shivering when i walk in but he states he likes it cold, Physical Exam Vital signs: Vital Signs 09/22/17 12:00 09/22/17 13:48 09/22/17 16:00 Temperature 99.3 F 100.2 F H Pulse Rate 90 105 H 96 H Respiratory Rate 22 24 22 Blood Pressure 138/60 130/68 Pulse Oximetry 96 96 09/22/17 19:23 09/22/17 20:00 09/23/17 00:08 Temperature 102 F H 100.6 F H Pulse Rate 105 H 109 H 94 H Respiratory Rate 20 22 20 Blood Pressure 133/60 120/70 Pulse Oximetry 92 L 93 L 93 L 09/23/17 04:01 09/23/17 07:00 09/23/17 07:37 Temperature 102.3 F H Pulse Rate 91 H Respiratory Rate 20 Blood Pressure Pulse Oximetry 95 09/23/17 08:00 09/23/17 09:11 09/23/17 11:16 Temperature 96.9 F L 101.5 F H Pulse Rate 94 H Respiratory Rate 18 18 Blood Pressure 143/63 H Pulse Oximetry 94 L 96 Intake & Output 09/22/17 09/23/17 09/23/17 18:59 06:59 18:59 Intake Total 3252 / 3252 1530 / 1530 2572 / 2572 Output Total 541 / 541 Balance 2711 / 2711 1530 / 1530 2572 / 2572 Weight 181.4 kg Intake: IV 2522 / 2522 1050 / 1050 2572 / 2572 NS Inj 1,000 ML @ 150 mls/hr IV 1999 / 1999 1000 / 1000 1000 / 1000 .CONT .Q6H40M [facility] Rx#: [id number] Vancomycin Inj 2,200 MG In NS 522 / 522 522 / 522 Inj 500 ML @ 261 mls/hr IV.SIG Q12H [facility] Rx#:[id number] Ancef 2 GM Premix Inj 2 gm In 50 / 50 50 / 50 50 ml @ 100 mls/hr IV.SIG Q8H [facility] Rx#:[id number] Oral 730 / 730 480 / 480 Output: Urine 540 / 540 Stool Other: # Voids 3 Date of Last Bowel Movement 09/22/17 09/22/17 # Bowel Movements 1 - Constitutional mild distress, morbidly obese - Routine HEENT Exam Head: Present: normocephalic - Routine Respiratory Exam Present: CTA bilaterally - Routine Cardiovascular Exam Present: RRR - Routine Abdominal Exam Present: soft, normoactive bowel sounds - Routine Extremities Exam Present: edema - Routine Skin Exam Present: erythema (hot and red to knee , small patch above knee (left leg)) - Routine Neurological Exam Present: alert, oriented X3 Results - Labs CBC & Chem 7: 09/23/17 05:45 09/23/17 05:45 Laboratory Results - last 24 hr 09/23/17 09/23/17 09/23/17 00:00 05:45 05:45 CBC w Diff Auto diff final WBC 13.4 H RBC 4.38 L Hgb 12.0 L Hct 37.1 L MCV 84.7 MCH 27.4 MCHC 32.3 RDW 13.9 Plt Count 129 L MPV 8.2 Neut % (Auto) 90.2 H Lymph % (Auto) 7.9 L [place] % (Auto) 1.2 Eos % (Auto) 0.0 Baso % (Auto) 0.7 Neut # (Auto) 12.0 H Lymph # (Auto) 1.1 [place] # (Auto) 0.2 Eos # (Auto) 0.0 Baso # (Auto) 0.1 WBC Differential . Differential Comment . Sodium 133 L Potassium 3.2 L D Chloride 102 Carbon Dioxide 22.9 Anion Gap 8 BUN 17 Creatinine 1.20 Estimated GFR 63 L Random Glucose 129 H Calcium 7.4 L* Prot Corrected Calcium 7.9 L Total Protein 6.1 L D Vancomycin Trough 10.6 H Microbiology 09/21/17 14:30 Blood - Peripheral Aerobic Blood Culture - Preliminary No growth in 2 days 09/21/17 14:30 Blood - Peripheral Anaerobic Blood Culture - Preliminary No growth in 2 days 09/21/17 14:28 Blood - Peripheral Aerobic Blood Culture - Preliminary No growth in 2 days 09/21/17 14:28 Blood - Peripheral Anaerobic Blood Culture - Preliminary No growth in 2 days Assessment and Plan - Assessment (1) Cellulitis of left lower leg Code(s): L03.116 - Cellulitis of left lower limb Status: Acute Plan: started on vancomycin IV, acetaminophen to control fever, seen by ID yesterday Ancef added. Still with temp overnight (2) Wheezing on auscultation Code(s): R06.2 - Wheezing Status: Acute Onset Date: ~09/21/17 Plan: duonebs , started last night, lungs clear today anteriorly, subjectively he feels it helps discussed smoking cessation today, will place on nicotine patch (3) Lower extremity edema Code(s): R60.0 - Localized edema Status: Chronic Plan: states his primary has done extensive work up May delay response to treatment, will keep elevated, his leg is tender to touch so compression stockings would cause his pain at this point , (4) AMINA (obstructive sleep apnea) Code(s): G47.33 - Obstructive sleep apnea (adult) (pediatric) Status: Chronic Plan: he is using his cpap. he is a large man. using recliner and keeping leg elevated
[2017-09-23 11:34] LABS: Blood Urea Nitrogen 16 mg/dL (7-18); Glucose,Random 132 mg/dL (74-106)
[2017-09-23 11:43] LABS: Alanine Aminotransferase 153 U/L (12-78); Alkaline Phosphatase 92 U/L (45-117); Aspartate Aminotransferase 141 U/L (15-37); Glomerular Filtration Rate 57 mL/min (>89)
[2017-09-23] MEDS: Sod Chloride 0.9% Inj 1,000 ML IV.SIG SCH (15:00)
--- NOTE | 2017-09-23 15:19 | P.PNID ---
Subjective Remarks: Chart reviewed 57-year-old male came in with an acute onset of fever and chills, followed by pain on his left lower extremity from the groin all the way to the foot. When he presented to the hospital he was then noted to have redness on his left leg. No prior history of cellulitis. Has had chronic left lower extremity swelling for years. No trauma. No known problem with athlete's foot. Denies any respiratory complaint. No nausea or vomiting. Has been on IV vancomycin. ID evaluated the patient yesterday and started Ancef. Notes reviewed At the time my exam patient is having active rigors. He continues to be febrile. His WBC however is slowly improving. Antibiotics: Vancomycin Ancef Lines: No evidence of infection Past Medical History: Lower extremity edema Morbid obesity with BMI of 45.0-49.9, adult AMINA (obstructive sleep apnea) Vascular insufficiency of extremity H/O arthroscopic knee surgery Allergies/Adverse Reactions: Allergies No Known Allergies Allergy (Unknown, Uncoded 09/21/17 13:37) NONE Objective Vital Signs 09/22/17 16:00 09/22/17 19:23 09/22/17 20:00 Temperature 100.2 F H 102 F H Pulse Rate 96 H 105 H 109 H Respiratory Rate 22 20 22 Blood Pressure 130/68 133/60 Pulse Oximetry 96 92 L 93 L 09/23/17 00:08 09/23/17 04:01 09/23/17 07:00 Temperature 100.6 F H 102.3 F H Pulse Rate 94 H 91 H Respiratory Rate 20 20 Blood Pressure 120/70 Pulse Oximetry 93 L 09/23/17 07:37 09/23/17 08:00 09/23/17 09:11 Temperature 96.9 F L Pulse Rate 94 H Respiratory Rate 18 18 Blood Pressure 143/63 H Pulse Oximetry 95 94 L 96 09/23/17 11:16 09/23/17 12:00 Temperature 101.5 F H 100.8 F H Pulse Rate 94 H Respiratory Rate 18 Blood Pressure 116/53 L Pulse Oximetry 96 Intake & Output 09/22/17 09/23/17 09/23/17 18:59 06:59 18:59 Intake Total 3252 / 3252 1530 / 1530 3144 / 3144 Output Total 541 / 541 Balance 2711 / 2711 1530 / 1530 3144 / 3144 Weight 181.4 kg Intake: IV 2522 / 2522 1050 / 1050 3144 / 3144 NS Inj 1,000 ML @ 150 mls/hr IV 2000 / 1999 1000 / 1000 1000 / 1000 .CONT .Q6H40M ISHAN Rx#: [id number] Vancomycin Inj 2,200 MG In NS 522 / 522 1044 / 1044 Inj 500 ML @ 261 mls/hr IV.SIG Q12H [facility] Rx#:[id number] Ancef 2 GM Premix Inj 2 gm In 50 / 50 100 / 100 50 ml @ 100 mls/hr IV.SIG Q8H ISHAN Rx#:[id number] Oral 730 / 730 480 / 480 Output: Urine 540 / 540 Stool Other: # Voids 3 Date of Last Bowel Movement 09/22/17 09/22/17 # Bowel Movements 1 09/21/17 14:30 Blood - Peripheral Aerobic Blood Culture - Preliminary No growth in 2 days 09/21/17 14:30 Blood - Peripheral Anaerobic Blood Culture - Preliminary No growth in 2 days 09/21/17 14:28 Blood - Peripheral Aerobic Blood Culture - Preliminary No growth in 2 days 09/21/17 14:28 Blood - Peripheral Anaerobic Blood Culture - Preliminary No growth in 2 days Lab - Hematology Results 09/22/17 09/23/17 05:42 05:45 CBC w Diff Auto diff final Auto diff final WBC 17.0 H 13.4 H RBC 4.69 4.38 L Hgb 13.6 12.0 L Hct 40.2 37.1 L MCV 85.5 84.7 MCH 28.9 27.4 MCHC 33.7 32.3 RDW 14.3 13.9 Plt Count 157 129 L MPV 8.6 8.2 Neut % (Auto) 91.2 H 90.2 H Lymph % (Auto) 6.5 L 7.9 L [place] % (Auto) 1.8 1.2 Eos % (Auto) 0.1 0.0 Baso % (Auto) 0.4 0.7 Neut # (Auto) 15.5 H 12.0 H Lymph # (Auto) 1.1 1.1 [place] # (Auto) 0.3 0.2 Eos # (Auto) 0.0 0.0 Baso # (Auto) 0.1 0.1 WBC Differential . . Differential Comment . . Lab - Chemistry Results 09/22/17 09/23/17 09/23/17 05:42 05:45 11:11 Sodium 135 L 133 L 133 L Potassium 4.1 3.2 L D 3.5 Chloride 101 102 100 Carbon Dioxide 27.5 22.9 25.6 Anion Gap 7 8 7 BUN 20 H 17 16 Creatinine 1.50 H 1.20 1.30 Estimated GFR 48 L 63 L 57 L Random Glucose 110 H 129 H 132 H Calcium 7.9 L 7.4 L* 7.8 L Prot Corrected Calcium 7.9 L Total Bilirubin 0.8 0.5 AST 41 H 141 H ALT 58 153 H Alkaline Phosphatase 82 92 Total Protein 6.8 6.1 L D 7.0 D Albumin 2.8 L 2.6 L Imaging: ITS Impressions Venous Doppler Study 09/21/17 14:03 CONCLUSION: 1. Negative for deep venous thrombosis. Physical Exam: Physical Examination GENERAL: Patient is an obese, well-developed male, awake and alert, not in respiratory distress. Having avtive rigors at time of my exam SKIN: Warm and dry. No generalized rash, no ecchymoses and no evidence of embolic lesions. HEAD: Atraumatic. Normocephalic. No temporal wasting, or tenderness. EYES: [place] conjunctiva. No petechia or hemorrhage. Pupils equal, round and reactive to light. Extraocular movements full and intact. No scleral icterus. No injection or drainage. EARS, NOSE AND THROAT: Nose without bleeding or purulent nasal discharge. No sinus tenderness. Mucous membranes pink and moist. No oral lesions noted. No exudate. No oral thrush. NECK: Trachea midline. Supple and not tender, no meningeal signs CARDIOVASCULAR: Regular rate and rhythm. No murmurs, rubs or gallops heard RESPIRATORY: Clear to auscultation. Breath sounds equal bilaterally. No rales , wheezing or rhonchi ABDOMEN: Soft, non-tender, nondistended. Bowel sounds present and normoactive. No guarding. No rebound. No organomegaly. EXTREMITIES: No clubbing, cyanosis. LLE markedly larger compared to the RLE. There is erythema and induration from below the L knee to ankle area, with some areas that has [id number] texture, (+) warmth. No calf tenderness. NEUROLOGICAL: Awake and alert. Cranial nerves grossly intact. Motor grossly within normal limits. PSYCHIATRIC: Normal affect, calm and cooperative. LINE: No evidence of infection Assessment and Plan - Plan Impression Sepsis due to LLE cellulitis Acute onset cellulitis LLE, clinical presentation typical presentation of Strep Morbid obesity Chronic LLE edema Recommendation Continue IV Ancef Stop IV VAnco Give short course of Clindamycin to help with toxin effects of sepsis and Strep Elevate LLE Repeat BC Monitor progress I will follow along with you
[2017-09-23] MEDS: Clindamycin 900 mg/NS Premix 900 MG/50 ML PIGGYBACK IV.SIG SCH (16:20)
[2017-09-23] MEDS: Enoxaparin Inj 40 MG/0.4 ML Syringe SQ SCH (16:27)
[2017-09-23] MEDS ORDERED: Ketorolac Inj 30 MG/ML (IVP) Vial IV.PUSH ONE (17:45)
[2017-09-23] MEDS: Temazepam 15 MG Capsule PO PRN (21:10)
[2017-09-24] MEDS: Acetaminophen 325 MG Tablet PO PRN ×2 (00:22→20:28)
[2017-09-24] MEDS: Clindamycin 900 mg/NS Premix 900 MG/50 ML PIGGYBACK IV.SIG SCH ×3 (00:55→15:07)
[2017-09-24] MEDS: Sod Chloride 0.9% Inj 1,000 ML IV.SIG SCH ×2 (03:44→15:24)
[2017-09-24] MEDS: ceFAZolin 2 GM Premix Inj 2 GM/50 ML PIGGYBACK IV.SIG SCH ×3 (03:51→20:29)
[2017-09-24 07:00] LABS: Baso % (Auto) 0.2 % (0.0-2.0); Eos % (Auto) 0.1 % (0.0-4.0); Hemoglobin 11.7 gm/dL (13.0-17.0); Lymph # (Auto) 1.1 th/mm3 (1.0-4.8); Lymph % (Auto) 9.5 % (9.0-44.0); Mean Corpuscular HGB Conc 34.4 % (32.0-36.0); Mean Corpuscular Hemoglobin 28.7 pg (27.0-34.0); Mean Corpuscular Volume 83.3 fL (80.0-100.0); Mean Platelet Volume 8.7 fL (7.0-11.0); Mono # (Auto) 0.4 th/mm3 (0.0-0.9); Mono % (Auto) 3.3 % (0.0-8.0); Neut # (Auto) 9.9 th/mm3 (1.8-7.7); Neut % (Auto) 86.9 % (16.0-70.0); Platelet Count 120 th/mm3 (150-450); Red Blood Count 4.08 mil/mm3 (4.50-5.90); Red Cell Distribution Width 14.4 % (11.6-17.2); White Blood Count 11.4 th/mm3 (4.0-11.0)
[2017-09-24 07:02] LABS: Potassium 3.6 meq/L (3.5-5.1)
[2017-09-24 07:10] LABS: Albumin 2.1 g/dL (3.4-5.0); Calcium 7.4 mg/dL (8.5-10.1); Carbon Dioxide 25.5 meq/L (21.0-32.0)
[2017-09-24 07:36] LABS: Total Protein 6.1 g/dL (6.4-8.2)
--- NOTE | 2017-09-24 13:25 | P.PN ---
Subjective Interval history: Wheezing last pm, needed prn albuterol, ate breakfast today, leg still hurts when he stands on it. States he has been having diarrhea for last couple of days. No abdominal pain. Food doesnt taste good. Drinking fluids. Cpap broke last night. He normally glues it back together but it is now missing from the room. Family member has gone to buy one. Physical Exam Vital signs: Vital Signs 09/23/17 13:00 09/23/17 16:27 09/23/17 17:54 Temperature 102.9 F H 101 F H Pulse Rate 101 H Respiratory Rate 18 Blood Pressure Pulse Oximetry 09/23/17 19:35 09/23/17 20:00 09/23/17 23:58 Temperature 97.9 F Pulse Rate 84 85 105 H Respiratory Rate 20 18 20 Blood Pressure 111/59 L Pulse Oximetry 95 94 L 95 09/24/17 00:00 09/24/17 01:55 09/24/17 04:00 Temperature 100.2 F H 100.0 F H 100.1 F H Pulse Rate 101 H 97 H 95 H Respiratory Rate 18 18 Blood Pressure 128/65 124/64 Pulse Oximetry 94 L 93 L 97 09/24/17 07:41 09/24/17 08:00 Temperature 100.0 F H Pulse Rate 95 H 52 L Respiratory Rate 18 17 Blood Pressure 104/55 L Pulse Oximetry 95 95 Intake & Output 09/23/17 09/24/17 09/24/17 18:59 06:59 18:59 Intake Total 4694 / 4694 1390 / 1390 50 / 50 Output Total 150 / 150 250 / 250 Balance 4544 / 4544 1140 / 1140 50 / 50 Weight 181.4 kg Intake: IV 3194 / 3194 1150 / 1150 50 / 50 NS Inj 1,000 ML @ 150 mls/hr IV 1000 / 1000 .CONT .Q6H40M [facility] Rx#: [id number] Cleocin 900 mg/NS Premix 900 mg 50 / 50 50 / 50 50 / 50 In 50 ml @ 100 mls/hr IV.SIG Q8H IS[facility] Rx#:[id number] NS Inj 1,000 ML @ 100 mls/hr IV 1000 / 1000 .SIG .Q10H [facility] Rx#:[id number] Vancomycin Inj 2,200 MG In NS 1044 / 1044 Inj 500 ML @ 261 mls/hr IV.SIG Q12H [facility] Rx#:[id number] Ancef 2 GM Premix Inj 2 gm In 100 / 100 100 / 100 50 ml @ 100 mls/hr IV.SIG Q8H [facility] Rx#:[id number] Oral 1500 / 1500 240 / 240 Output: Urine 150 / 150 250 / 250 Other: # Voids 2 # Bowel Movements 2 2 - Constitutional mild distress, morbidly obese - Routine HEENT Exam Head: Present: normocephalic Eye: Present: EOMI ENT: Present: mucous membranes moist - Routine Respiratory Exam Present: CTA bilaterally - Routine Cardiovascular Exam Present: RRR - Routine Abdominal Exam Present: soft, normoactive bowel sounds Comments: exam performed with patient sitting uable to lie flat - Routine Extremities Exam Present: edema - Routine Skin Exam Present: erythema Comments: to knee , warm to touch , has developed blisters in calf and dorsum of foot - Routine Neurological Exam Present: alert - Routine Psychiatric Exam Present: normal affect Results - Labs CBC & Chem 7: 09/24/17 06:40 09/24/17 06:40 Laboratory Results - last 24 hr 09/24/17 09/24/17 06:40 06:40 CBC w Diff Auto diff final WBC 11.4 H RBC 4.08 L Hgb 11.7 L Hct 34.0 L MCV 83.3 MCH 28.7 MCHC 34.4 RDW 14.4 Plt Count 120 L MPV 8.7 Neut % (Auto) 86.9 H Lymph % (Auto) 9.5 [place] % (Auto) 3.3 Eos % (Auto) 0.1 Baso % (Auto) 0.2 Neut # (Auto) 9.9 H Lymph # (Auto) 1.1 [place] # (Auto) 0.4 Eos # (Auto) 0.0 Baso # (Auto) 0.0 WBC Differential . Differential Comment . Sodium 135 L Potassium 3.6 Chloride 102 Carbon Dioxide 25.5 Anion Gap 8 BUN 17 Creatinine 1.40 H Estimated GFR 52 L Random Glucose 111 H Calcium 7.4 L* Prot Corrected Calcium 7.9 L Total Bilirubin 0.6 AST 107 H ALT 133 H Alkaline Phosphatase 92 Total Protein 6.1 L D Albumin 2.1 L Microbiology 09/23/17 16:08 Blood - Peripheral Aerobic Blood Culture - Preliminary No growth in 1 day 09/23/17 16:08 Blood - Peripheral Anaerobic Blood Culture - Preliminary No growth in 1 day 09/23/17 16:18 Blood - Peripheral Aerobic Blood Culture - Preliminary No growth in 1 day 09/23/17 16:18 Blood - Peripheral Anaerobic Blood Culture - Preliminary No growth in 1 day 09/21/17 14:30 Blood - Peripheral Aerobic Blood Culture - Preliminary No growth in 3 days 09/21/17 14:30 Blood - Peripheral Anaerobic Blood Culture - Preliminary No growth in 3 days 09/21/17 14:28 Blood - Peripheral Aerobic Blood Culture - Preliminary No growth in 3 days 09/21/17 14:28 Blood - Peripheral Anaerobic Blood Culture - Preliminary No growth in 3 days - Imaging Venous Doppler Study 09/21/17 14:03 CONCLUSION: 1. Negative for deep venous thrombosis. Assessment and Plan - Assessment (1) Cellulitis of left lower leg Code(s): L03.116 - Cellulitis of left lower limb Status: Acute Plan: Off vancomycin, on ancef and clindamycin, white count improving and fevr curve beginning to improve (2) Wheezing on auscultation Code(s): R06.2 - Wheezing Status: Acute Onset Date: ~09/21/17 Plan: duonebs , started last night, lungs clear today anteriorly, subjectively he feels it helps discussed smoking cessation today, will place on nicotine patch with smoking history suspect COPD Current visit: Yes (3) Lower extremity edema Code(s): R60.0 - Localized edema Status: Chronic Plan: states his primary has done extensive work up May delay response to treatment, will keep elevated, his leg is tender to touch so compression stockings would cause his pain at this point , On Iv fluids due to fever eating better today fever curve seems to be coming down, will try decreasing IVfluids (4) AMINA (obstructive sleep apnea) Code(s): G47.33 - Obstructive sleep apnea (adult) (pediatric) Status: Chronic Plan: His cpap broke last night . he states family is getting one since DME supplier does not have in stock (5) COPD (chronic obstructive pulmonary disease) Code(s): J44.9 - Chronic obstructive pulmonary disease, unspecified Status: Suspected Plan: Will continue with Duonebs and prn oxygen continue on nicotine patch (5) COPD (chronic obstructive pulmonary disease) Qualifiers: COPD type: unspecified COPD Qualified Code(s): J44.9 - Chronic obstructive pulmonary disease, unspecified
--- NOTE | 2017-09-24 13:33 | P.PNID ---
Subjective Remarks: Chart reviewed 57-year-old male came in with an acute onset of fever and chills, followed by pain on his left lower extremity from the groin all the way to the foot. When he presented to the hospital he was then noted to have redness on his left leg. No prior history of cellulitis. Has had chronic left lower extremity swelling for years. No trauma. No known problem with athlete's foot. Denies any respiratory complaint. No nausea or vomiting. Has been on IV vancomycin. ID started Ancef 09/22. Notes reviewed Feels better Temps 100+ WBC lower Having frequent stools Antibiotics: Clindamycin Ancef Lines: No evidence of infection Past Medical History: Lower extremity edema Morbid obesity with BMI of 45.0-49.9, adult AMINA (obstructive sleep apnea) Vascular insufficiency of extremity H/O arthroscopic knee surgery Allergies/Adverse Reactions: Allergies No Known Allergies Allergy (Unknown, Uncoded 09/21/17 13:37) NONE Objective Vital Signs 09/23/17 16:27 09/23/17 17:54 09/23/17 19:35 Temperature 102.9 F H 101 F H Pulse Rate 84 Respiratory Rate 20 Blood Pressure Pulse Oximetry 95 09/23/17 20:00 09/23/17 23:58 09/24/17 00:00 Temperature 97.9 F 100.2 F H Pulse Rate 85 105 H 101 H Respiratory Rate 18 20 18 Blood Pressure 111/59 L 128/65 Pulse Oximetry 94 L 95 94 L 09/24/17 01:55 09/24/17 04:00 09/24/17 07:41 Temperature 100.0 F H 100.1 F H Pulse Rate 97 H 95 H 95 H Respiratory Rate 18 18 Blood Pressure 124/64 Pulse Oximetry 93 L 97 95 09/24/17 08:00 09/24/17 12:00 09/24/17 13:00 Temperature 100.0 F H 98.8 F Pulse Rate 52 L 94 H 95 H Respiratory Rate 17 20 18 Blood Pressure 104/55 L 101/65 Pulse Oximetry 95 96 Intake & Output 09/23/17 09/24/17 09/24/17 18:59 06:59 18:59 Intake Total 4694 / 4694 1390 / 1390 50 / 50 Output Total 150 / 150 250 / 250 Balance 4544 / 4544 1140 / 1140 50 / 50 Weight 181.4 kg Intake: IV 3194 / 3194 1150 / 1150 50 / 50 NS Inj 1,000 ML @ 150 mls/hr IV 1000 / 1000 .CONT .Q6H40M [facility] Rx#: [id number] Cleocin 900 mg/NS Premix 900 mg 50 / 50 50 / 50 50 / 50 In 50 ml @ 100 mls/hr IV.SIG Q8H [facility] Rx#:[id number] NS Inj 1,000 ML @ 100 mls/hr IV 1000 / 1000 .SIG .Q10H [facility] Rx#:[id number] Vancomycin Inj 2,200 MG In NS 1044 / 1044 Inj 500 ML @ 261 mls/hr IV.SIG Q12H [facility] Rx#:[id number] Ancef 2 GM Premix Inj 2 gm In 100 / 100 100 / 100 50 ml @ 100 mls/hr IV.SIG Q8H [facility] Rx#:[id number] Oral 1500 / 1500 240 / 240 Output: Urine 150 / 150 250 / 250 Other: # Voids 2 # Bowel Movements 2 2 09/23/17 16:08 Blood - Peripheral Aerobic Blood Culture - Preliminary No growth in 1 day 09/23/17 16:08 Blood - Peripheral Anaerobic Blood Culture - Preliminary No growth in 1 day 09/23/17 16:18 Blood - Peripheral Aerobic Blood Culture - Preliminary No growth in 1 day 09/23/17 16:18 Blood - Peripheral Anaerobic Blood Culture - Preliminary No growth in 1 day 09/21/17 14:30 Blood - Peripheral Aerobic Blood Culture - Preliminary No growth in 3 days 09/21/17 14:30 Blood - Peripheral Anaerobic Blood Culture - Preliminary No growth in 3 days 09/21/17 14:28 Blood - Peripheral Aerobic Blood Culture - Preliminary No growth in 3 days 09/21/17 14:28 Blood - Peripheral Anaerobic Blood Culture - Preliminary No growth in 3 days Lab - Hematology Results 09/23/17 09/24/17 05:45 06:40 CBC w Diff Auto diff final Auto diff final WBC 13.4 H 11.4 H RBC 4.38 L 4.08 L Hgb 12.0 L 11.7 L Hct 37.1 L 34.0 L MCV 84.7 83.3 MCH 27.4 28.7 MCHC 32.3 34.4 RDW 13.9 14.4 Plt Count 129 L 120 L MPV 8.2 8.7 Neut % (Auto) 90.2 H 86.9 H Lymph % (Auto) 7.9 L 9.5 Saline % (Auto) 1.2 3.3 Eos % (Auto) 0.0 0.1 Baso % (Auto) 0.7 0.2 Neut # (Auto) 12.0 H 9.9 H Lymph # (Auto) 1.1 1.1 Saline # (Auto) 0.2 0.4 Eos # (Auto) 0.0 0.0 Baso # (Auto) 0.1 0.0 WBC Differential . . Differential Comment . . Lab - Chemistry Results 09/23/17 09/23/17 09/24/17 05:45 11:11 06:40 Sodium 133 L 133 L 135 L Potassium 3.2 L D 3.5 3.6 Chloride 102 100 102 Carbon Dioxide 22.9 25.6 25.5 Anion Gap 8 7 8 BUN 17 16 17 Creatinine 1.20 1.30 1.40 H Estimated GFR 63 L 57 L 52 L Random Glucose 129 H 132 H 111 H Calcium 7.4 L* 7.8 L 7.4 L* Prot Corrected Calcium 7.9 L 7.9 L Total Bilirubin 0.5 0.6 AST 141 H 107 H ALT 153 H 133 H Alkaline Phosphatase 92 92 Total Protein 6.1 L D 7.0 D 6.1 L D Albumin 2.6 L 2.1 L Imaging: ITS Impressions Venous Doppler Study 09/21/17 14:03 CONCLUSION: 1. Negative for deep venous thrombosis. Physical Exam: Physical Examination GENERAL: Awake and alert, not in respiratory distress. SKIN: Warm and dry. No generalized rash, no ecchymoses and no evidence of embolic lesions. HEAD: Atraumatic. Normocephalic. No temporal wasting, or tenderness. EYES: [place] conjunctiva. No petechia or hemorrhage. Pupils equal, round and reactive to light. Extraocular movements full and intact. No scleral icterus. No injection or drainage. EARS, NOSE AND THROAT: Nose without bleeding or purulent nasal discharge. No sinus tenderness. Mucous membranes pink and moist. No oral lesions noted. No exudate. No oral thrush. NECK: Trachea midline. Supple and not tender, no meningeal signs CARDIOVASCULAR: Regular rate and rhythm. No murmurs, rubs or gallops heard RESPIRATORY: Clear to auscultation. Breath sounds equal bilaterally. No rales , wheezing or rhonchi ABDOMEN: Soft, non-tender, nondistended. Bowel sounds present and normoactive. No guarding. No rebound. No organomegaly. EXTREMITIES: No clubbing, cyanosis. LLE markedly larger compared to the RLE. There is erythema and induration from below the L knee to ankle area, with ihtp-[id number] texture, (+) warmth. Area of erythema has receded to ink jelly. No calf tenderness. NEUROLOGICAL: Awake and alert. Cranial nerves grossly intact. Motor grossly within normal limits. PSYCHIATRIC: Normal affect, calm and cooperative. LINE: No evidence of infection Assessment and Plan - Plan Impression Sepsis due to LLE cellulitis Acute onset cellulitis LLE, clinical presentation typical presentation of Strep Morbid obesity Chronic LLE edema Recommendation Continue IV Ancef Continue Clindamycin to help with toxin effects of sepsis and Strep Elevate LLE Follow C/S Monitor progress Explained plan to patient and D/W Dr Bojorquez
[2017-09-24] MEDS: Sod Chloride 0.9% Inj 1,000 ML IV.CONT SCH (15:05)
[2017-09-24] MEDS: Enoxaparin Inj 40 MG/0.4 ML Syringe SQ SCH ×2 (15:08→16:20)
[2017-09-24] MEDS: Temazepam 15 MG Capsule PO PRN (22:14)
[2017-09-25] MEDS: Clindamycin 900 mg/NS Premix 900 MG/50 ML PIGGYBACK IV.SIG SCH ×2 (01:43→09:05)
[2017-09-25] MEDS: ceFAZolin 2 GM Premix Inj 2 GM/50 ML PIGGYBACK IV.SIG SCH ×3 (04:41→21:07)
[2017-09-25] MEDS: Sod Chloride 0.9% Inj 1,000 ML IV.CONT SCH (04:44)
[2017-09-25 07:19] LABS: Baso % (Auto) 0.2 % (0.0-2.0); Eos % (Auto) 0.1 % (0.0-4.0); Hematocrit 33.1 % (39.0-51.0); Hemoglobin 11.4 gm/dL (13.0-17.0); Lymph # (Auto) 1.2 th/mm3 (1.0-4.8); Lymph % (Auto) 11.2 % (9.0-44.0); Mean Corpuscular HGB Conc 34.4 % (32.0-36.0); Mean Corpuscular Hemoglobin 28.4 pg (27.0-34.0); Mean Corpuscular Volume 82.6 fL (80.0-100.0); Mean Platelet Volume 9.4 fL (7.0-11.0); Mono # (Auto) 0.5 th/mm3 (0.0-0.9); Mono % (Auto) 4.8 % (0.0-8.0); Neut # (Auto) 9.4 th/mm3 (1.8-7.7); Neut % (Auto) 83.7 % (16.0-70.0); Platelet Count 143 th/mm3 (150-450); Red Blood Count 4.01 mil/mm3 (4.50-5.90); Red Cell Distribution Width 14.7 % (11.6-17.2); White Blood Count 11.1 th/mm3 (4.0-11.0)
[2017-09-25 07:31] LABS: Chloride 103 meq/L (98-107); Potassium 3.6 meq/L (3.5-5.1); Sodium 135 meq/L (136-145)
[2017-09-25 07:37] LABS: Albumin 1.9 g/dL (3.4-5.0); Calcium 7.5 mg/dL (8.5-10.1); Glucose,Random 103 mg/dL (74-106)
[2017-09-25 07:38] LABS: Anion Gap 7 meq/L (5-15); Blood Urea Nitrogen 15 mg/dL (7-18)
[2017-09-25 07:40] LABS: Alanine Aminotransferase 110 U/L (12-78); Aspartate Aminotransferase 89 U/L (15-37); Glomerular Filtration Rate 77 mL/min (>89)
[2017-09-25 07:42] LABS: Total Protein 5.8 g/dL (6.4-8.2)
[2017-09-25 07:43] LABS: Alkaline Phosphatase 105 U/L (45-117)
--- NOTE | 2017-09-25 13:15 | P.PN ---
Subjective Interval history: Still with lower extremity pain when standing. Food still tastes bad, diarrhea is better, no abdominal pain, Physical Exam Vital signs: Vital Signs 09/24/17 14:00 09/24/17 16:00 09/24/17 19:39 Temperature 99.9 F H 97.8 F Pulse Rate 96 H 92 H Respiratory Rate 19 20 Blood Pressure 132/83 Pulse Oximetry 97 94 L 09/24/17 20:34 09/25/17 00:00 09/25/17 07:37 Temperature 97.5 F L 96 F L 98.8 F Pulse Rate 94 H 86 86 Respiratory Rate 20 20 20 Blood Pressure 137/68 112/74 126/61 Pulse Oximetry 96 97 95 09/25/17 07:42 09/25/17 11:44 Temperature 97.1 F L Pulse Rate 85 84 Respiratory Rate 19 20 Blood Pressure 117/71 Pulse Oximetry 95 96 Intake & Output 09/24/17 09/25/17 09/25/17 18:59 06:59 18:59 Intake Total 1570 / 1570 2470 / 2470 1420 / 1420 Balance 1570 / 1570 2470 / 2470 1420 / 1420 Weight 181.4 kg Intake: IV 850 / 850 1050 / 1050 NS Inj 1,000 ML @ 70 mls/hr IV. 900 / 900 CONT .[id number] [facility] Rx#: [id number] Cleocin 900 mg/NS Premix 900 mg 100 / 100 50 / 50 In 50 ml @ 100 mls/hr IV.SIG Q8H [facility] Rx#:[id number] NS Inj 1,000 ML @ 100 mls/hr IV 700 / 700 .SIG .Q10H [facility] Rx#:[id number] Ancef 2 GM Premix Inj 2 gm In 50 / 50 100 / 100 50 ml @ 100 mls/hr IV.SIG Q8H [facility] Rx#:[id number] Oral 720 / 720 1420 / 1420 1420 / 1420 Other: # Voids 6 6 Date of Last Bowel Movement 09/24/17 # Bowel Movements 0 6 - Constitutional mild distress - Routine HEENT Exam Head: Present: normocephalic Eye: Present: EOMI ENT: Present: mucous membranes moist - Routine Respiratory Exam Present: CTA bilaterally - Routine Cardiovascular Exam Present: RRR - Routine Abdominal Exam Present: soft, normoactive bowel sounds - Routine Extremities Exam Present: edema Comments: rt greater then left - Routine Skin Exam Present: erythema Comments: erythema to knee warm to touch,blisters non purulent - Routine Neurological Exam Present: alert, oriented X3 Results - Labs CBC & Chem 7: 09/25/17 06:38 09/25/17 06:38 Laboratory Results - last 24 hr 09/24/17 09/25/17 09/25/17 13:10 06:38 06:38 CBC w Diff Slide review pending WBC 11.1 H RBC 4.01 L Hgb 11.4 L Hct 33.1 L MCV 82.6 MCH 28.4 MCHC 34.4 RDW 14.7 Plt Count 143 L MPV 9.4 Neut % (Auto) 83.7 H Lymph % (Auto) 11.2 [place] % (Auto) 4.8 Eos % (Auto) 0.1 Baso % (Auto) 0.2 Neut # (Auto) 9.4 H Lymph # (Auto) 1.2 [place] # (Auto) 0.5 Eos # (Auto) 0.0 Baso # (Auto) 0.0 WBC Differential . Diff Scan Auto diff confirmed Differential Comment . Sodium 135 L Potassium 3.6 Chloride 103 Carbon Dioxide 25.0 Anion Gap 7 BUN 15 Creatinine 1.00 Estimated GFR 77 L Random Glucose 103 Calcium 7.5 L Total Bilirubin 0.5 AST 89 H ALT 110 H Alkaline Phosphatase 105 Total Protein 5.8 L Albumin 1.9 L Stl C.difficile Tox PCR Negative St C. diff Tox Epid 027 Negative Microbiology 09/23/17 16:08 Blood - Peripheral Aerobic Blood Culture - Preliminary No growth in 2 days 09/23/17 16:08 Blood - Peripheral Anaerobic Blood Culture - Preliminary No growth in 2 days 09/23/17 16:18 Blood - Peripheral Aerobic Blood Culture - Preliminary No growth in 2 days 09/23/17 16:18 Blood - Peripheral Anaerobic Blood Culture - Preliminary No growth in 2 days 09/21/17 14:30 Blood - Peripheral Aerobic Blood Culture - Preliminary No growth in 4 days 09/21/17 14:30 Blood - Peripheral Anaerobic Blood Culture - Preliminary No growth in 4 days 09/21/17 14:28 Blood - Peripheral Aerobic Blood Culture - Preliminary No growth in 4 days 09/21/17 14:28 Blood - Peripheral Anaerobic Blood Culture - Preliminary No growth in 4 days Assessment and Plan - Assessment (1) Cellulitis of left lower leg Code(s): L03.116 - Cellulitis of left lower limb Status: Acute Plan: on ancef and clindamycin, white count improving and fever curve beginning to improve (2) Lower extremity edema Code(s): R60.0 - Localized edema Status: Chronic Plan: states his primary has done extensive work up May delay response to treatment, will keep elevated, his leg is tender to touch so compression stockings would cause his pain at this point , Will hold ivfluids low dose lasix (3) AMINA (obstructive sleep apnea) Code(s): G47.33 - Obstructive sleep apnea (adult) (pediatric) Status: Chronic Plan: His cpap broke last night . Was able to get cpap yesterday and had has resumed. (4) COPD (chronic obstructive pulmonary disease) Code(s): J44.9 - Chronic obstructive pulmonary disease, unspecified Status: Suspected Plan: will continue on oxygen try ventolin inhalers (4) COPD (chronic obstructive pulmonary disease) Qualifiers: COPD type: unspecified COPD Qualified Code(s): J44.9 - Chronic obstructive pulmonary disease, unspecified
--- NOTE | 2017-09-25 14:02 | P.PNID ---
Subjective Remarks: Chart reviewed 57-year-old male came in with an acute onset of fever and chills, followed by pain on his left lower extremity from the groin all the way to the foot. When he presented to the hospital he was then noted to have redness on his left leg. No prior history of cellulitis. Has had chronic left lower extremity swelling for years. No trauma. No known problem with athlete's foot. Denies any respiratory complaint. No nausea or vomiting. Has been on IV vancomycin. ID started Ancef 09/22. Notes reviewed Feels better Temps now normal WBC remains 11 BC negative Stools better Antibiotics: Clindamycin Ancef Lines: No evidence of infection Past Medical History: Lower extremity edema Morbid obesity with BMI of 45.0-49.9, adult AMINA (obstructive sleep apnea) Vascular insufficiency of extremity H/O arthroscopic knee surgery Allergies/Adverse Reactions: Allergies No Known Allergies Allergy (Unknown, Uncoded 09/21/17 13:37) NONE Objective Vital Signs 09/24/17 14:00 09/24/17 16:00 09/24/17 19:39 Temperature 99.9 F H 97.8 F Pulse Rate 96 H 92 H Respiratory Rate 19 20 Blood Pressure 132/83 Pulse Oximetry 97 94 L 09/24/17 20:34 09/25/17 00:00 09/25/17 07:37 Temperature 97.5 F L 96 F L 98.8 F Pulse Rate 94 H 86 86 Respiratory Rate 20 20 20 Blood Pressure 137/68 112/74 126/61 Pulse Oximetry 96 97 95 09/25/17 07:42 09/25/17 11:44 Temperature 97.1 F L Pulse Rate 85 84 Respiratory Rate 19 20 Blood Pressure 117/71 Pulse Oximetry 95 96 Intake & Output 09/24/17 09/25/17 09/25/17 18:59 06:59 18:59 Intake Total 1570 / 1570 2470 / 2470 1420 / 1420 Balance 1570 / 1570 2470 / 2470 1420 / 1420 Weight 181.4 kg Intake: IV 850 / 850 1050 / 1050 NS Inj 1,000 ML @ 70 mls/hr IV. 900 / 900 CONT .[id number] [facility] Rx#: [id number] Cleocin 900 mg/NS Premix 900 mg 100 / 100 50 / 50 In 50 ml @ 100 mls/hr IV.SIG Q8H [facility] Rx#:[id number] NS Inj 1,000 ML @ 100 mls/hr IV 700 / 700 .SIG .Q10H [facility] Rx#:[id number] Ancef 2 GM Premix Inj 2 gm In 50 / 50 100 / 100 50 ml @ 100 mls/hr IV.SIG Q8H [facility] Rx#:[id number] Oral 720 / 720 1420 / 1420 1420 / 1420 Other: # Voids 6 6 Date of Last Bowel Movement 09/24/17 # Bowel Movements 0 6 09/23/17 16:08 Blood - Peripheral Aerobic Blood Culture - Preliminary No growth in 2 days 09/23/17 16:08 Blood - Peripheral Anaerobic Blood Culture - Preliminary No growth in 2 days 09/23/17 16:18 Blood - Peripheral Aerobic Blood Culture - Preliminary No growth in 2 days 09/23/17 16:18 Blood - Peripheral Anaerobic Blood Culture - Preliminary No growth in 2 days 09/21/17 14:30 Blood - Peripheral Aerobic Blood Culture - Preliminary No growth in 4 days 09/21/17 14:30 Blood - Peripheral Anaerobic Blood Culture - Preliminary No growth in 4 days 09/21/17 14:28 Blood - Peripheral Aerobic Blood Culture - Preliminary No growth in 4 days 09/21/17 14:28 Blood - Peripheral Anaerobic Blood Culture - Preliminary No growth in 4 days Lab - Hematology Results 09/24/17 09/25/17 06:40 06:38 CBC w Diff Auto diff final Slide review pending WBC 11.4 H 11.1 H RBC 4.08 L 4.01 L Hgb 11.7 L 11.4 L Hct 34.0 L 33.1 L MCV 83.3 82.6 MCH 28.7 28.4 MCHC 34.4 34.4 RDW 14.4 14.7 Plt Count 120 L 143 L MPV 8.7 9.4 Neut % (Auto) 86.9 H 83.7 H Lymph % (Auto) 9.5 11.2 [place] % (Auto) 3.3 4.8 Eos % (Auto) 0.1 0.1 Baso % (Auto) 0.2 0.2 Neut # (Auto) 9.9 H 9.4 H Lymph # (Auto) 1.1 1.2 [place] # (Auto) 0.4 0.5 Eos # (Auto) 0.0 0.0 Baso # (Auto) 0.0 0.0 WBC Differential . . Diff Scan Auto diff confirmed Differential Comment . . Lab - Chemistry Results 09/24/17 09/25/17 06:40 06:38 Sodium 135 L 135 L Potassium 3.6 3.6 Chloride 102 103 Carbon Dioxide 25.5 25.0 Anion Gap 8 7 BUN 17 15 Creatinine 1.40 H 1.00 Estimated GFR 52 L 77 L Random Glucose 111 H 103 Calcium 7.4 L* 7.5 L Prot Corrected Calcium 7.9 L Total Bilirubin 0.6 0.5 AST 107 H 89 H ALT 133 H 110 H Alkaline Phosphatase 92 105 Total Protein 6.1 L D 5.8 L Albumin 2.1 L 1.9 L Imaging: ITS Impressions Venous Doppler Study 09/21/17 14:03 CONCLUSION: 1. Negative for deep venous thrombosis. Physical Exam: Physical Examination GENERAL: Awake and alert, not in respiratory distress. SKIN: Warm and dry. No generalized rash, no ecchymoses and no evidence of embolic lesions. HEAD: Atraumatic. Normocephalic. No temporal wasting, or tenderness. EYES: [place] conjunctiva. No petechia or hemorrhage. Pupils equal, round and reactive to light. Extraocular movements full and intact. No scleral icterus. No injection or drainage. EARS, NOSE AND THROAT: Nose without bleeding or purulent nasal discharge. No sinus tenderness. Mucous membranes pink and moist. No oral lesions noted. No exudate. No oral thrush. NECK: Trachea midline. Supple and not tender, no meningeal signs CARDIOVASCULAR: Regular rate and rhythm. No murmurs, rubs or gallops heard RESPIRATORY: Clear to auscultation. Breath sounds equal bilaterally. No rales , wheezing or rhonchi ABDOMEN: Soft, non-tender, nondistended. Bowel sounds present and normoactive. No guarding. No rebound. No organomegaly. EXTREMITIES: No clubbing, cyanosis. LLE markedly larger compared to the RLE. There is erythema and induration from below the L knee to ankle area, with [id number] texture, (+) warmth. There are also hemorrhagic component to his cellulitis in foot and ankle area. Very sensitive on palpation. Has some bullous lesions, with clear serous fluid NEUROLOGICAL: Non-focal PSYCHIATRIC: Normal affect, calm and cooperative. LINE: No evidence of infection Assessment and Plan - Plan Impression Sepsis due to LLE cellulitis Acute onset severe cellulitis LLE, clinical presentation typical presentation of Strep - fevers and leukocytosis better Chronic LLE edema Recommendation Continue IV Ancef Continue Clindamycin to help with toxin effects of sepsis and Strep - if temps stays down overnight, stop tomorrow Edema control Elevate LLE Monitor progress Explained plan to patient and
[2017-09-25] MEDS: Acetaminophen 325 MG Tablet PO PRN (21:00)
[2017-09-25] MEDS: Enoxaparin Inj 40 MG/0.4 ML Syringe SQ SCH (21:15)
[2017-09-25] MEDS: Temazepam 15 MG Capsule PO PRN (22:25)
[2017-09-26] MEDS: Clindamycin 900 mg/NS Premix 900 MG/50 ML PIGGYBACK IV.SIG SCH ×4 (01:24→08:28)
[2017-09-26] MEDS: ceFAZolin 2 GM Premix Inj 2 GM/50 ML PIGGYBACK IV.SIG SCH ×3 (03:56→19:39)
[2017-09-26 06:25] LABS: Chloride 103 meq/L (98-107); Potassium 3.8 meq/L (3.5-5.1); Sodium 136 meq/L (136-145)
[2017-09-26 06:29] LABS: Albumin 1.9 g/dL (3.4-5.0); Anion Gap 6 meq/L (5-15); Calcium 7.5 mg/dL (8.5-10.1); Carbon Dioxide 27.1 meq/L (21.0-32.0); Glucose,Random 99 mg/dL (74-106)
[2017-09-26 06:30] LABS: Blood Urea Nitrogen 12 mg/dL (7-18)
[2017-09-26 06:32] LABS: Alanine Aminotransferase 112 U/L (12-78); Aspartate Aminotransferase 108 U/L (15-37)
[2017-09-26 06:33] LABS: Glomerular Filtration Rate 80 mL/min (>89)
[2017-09-26 06:34] LABS: Total Protein 5.9 g/dL (6.4-8.2)
[2017-09-26 06:35] LABS: Alkaline Phosphatase 136 U/L (45-117)
[2017-09-26 07:19] LABS: Baso % (Auto) 0.2 % (0.0-2.0); Eos % (Auto) 0.3 % (0.0-4.0); Hemoglobin 12.1 gm/dL (13.0-17.0); Lymph # (Auto) 1.4 th/mm3 (1.0-4.8); Lymph % (Auto) 11.9 % (9.0-44.0); Mean Corpuscular HGB Conc 33.5 % (32.0-36.0); Mean Corpuscular Hemoglobin 27.9 pg (27.0-34.0); Mean Corpuscular Volume 83.5 fL (80.0-100.0); Mean Platelet Volume 9.1 fL (7.0-11.0); Mono # (Auto) 0.7 th/mm3 (0.0-0.9); Mono % (Auto) 5.9 % (0.0-8.0); Neut # (Auto) 9.3 th/mm3 (1.8-7.7); Neut % (Auto) 81.7 % (16.0-70.0); Platelet Count 205 th/mm3 (150-450); Red Blood Count 4.31 mil/mm3 (4.50-5.90); Red Cell Distribution Width 14.9 % (11.6-17.2); White Blood Count 11.4 th/mm3 (4.0-11.0)
--- NOTE | 2017-09-26 13:26 | P.PN ---
Subjective Interval history: PAin when he stands on his leg, ate better yesterday, no fever, gets a headache around 6 pm and takes tylenol slept well last night for the first time, diarrhea much improved Physical Exam Vital signs: Vital Signs 09/25/17 15:28 09/25/17 20:00 09/25/17 20:38 Temperature 98.9 F 98.8 F Pulse Rate 85 91 H Respiratory Rate 20 20 Blood Pressure 132/60 114/64 Pulse Oximetry 94 L 95 96 09/26/17 00:00 09/26/17 08:00 Temperature 97.9 F 98.8 F Pulse Rate 88 80 Respiratory Rate 20 19 Blood Pressure 119/63 111/63 Pulse Oximetry 93 L 95 Intake & Output 09/25/17 09/26/17 09/26/17 18:59 06:59 18:59 Intake Total 2360 / 2360 1810 / 1810 Output Total 600 / 600 350 / 350 Balance 1760 / 1760 1460 / 1460 Weight 181.4 kg Intake: IV 100 / 100 650 / 650 NS Inj 1,000 ML @ 70 mls/hr IV. 500 / 500 CONT .[id number] [facility] Rx#: [id number] Cleocin 900 mg/NS Premix 900 mg 50 / 50 50 / 50 In 50 ml @ 100 mls/hr IV.SIG Q8H [facility] Rx#:[id number] Ancef 2 GM Premix Inj 2 gm In 50 / 50 100 / 100 50 ml @ 100 mls/hr IV.SIG Q8H [facility] Rx#:[id number] Oral 2260 / 2260 1160 / 1160 Output: Urine 600 / 600 350 / 350 Other: # Voids 2 1 Date of Last Bowel Movement 09/24/17 09/26/17 # Bowel Movements 2 - Constitutional no acute distress, morbidly obese Comments: lying in bed - Routine HEENT Exam Head: Present: normocephalic - Routine Respiratory Exam Comments: coarse breath sounds when lying flat - Routine Cardiovascular Exam Present: RRR - Routine Abdominal Exam Present: soft, normoactive bowel sounds - Routine Extremities Exam Present: edema Comments: rt greater then left - Routine Skin Exam Present: erythema Comments: left leg redness clearly demarcated, some blisters (bullae) serosanguineous drainage, hot and tender to touch - Routine Neurological Exam Present: alert, oriented X3 Results - Labs CBC & Chem 7: 09/26/17 05:45 09/26/17 05:45 Laboratory Results - last 24 hr 09/26/17 09/26/17 05:45 05:45 CBC w Diff Auto diff final WBC 11.4 H RBC 4.31 L Hgb 12.1 L Hct 36.0 L MCV 83.5 MCH 27.9 MCHC 33.5 RDW 14.9 Plt Count 205 D MPV 9.1 Neut % (Auto) 81.7 H Lymph % (Auto) 11.9 [place] % (Auto) 5.9 Eos % (Auto) 0.3 Baso % (Auto) 0.2 Neut # (Auto) 9.3 H Lymph # (Auto) 1.4 [place] # (Auto) 0.7 Eos # (Auto) 0.0 Baso # (Auto) 0.0 WBC Differential . Differential Comment . Sodium 136 Potassium 3.8 Chloride 103 Carbon Dioxide 27.1 Anion Gap 6 BUN 12 Creatinine 0.97 Estimated GFR 80 L Random Glucose 99 Calcium 7.5 L Total Bilirubin 0.5 AST 108 H ALT 112 H Alkaline Phosphatase 136 H Total Protein 5.9 L Albumin 1.9 L Microbiology 09/23/17 16:08 Blood - Peripheral Aerobic Blood Culture - Preliminary No growth in 3 days 09/23/17 16:08 Blood - Peripheral Anaerobic Blood Culture - Preliminary No growth in 3 days 09/23/17 16:18 Blood - Peripheral Aerobic Blood Culture - Preliminary No growth in 3 days 09/23/17 16:18 Blood - Peripheral Anaerobic Blood Culture - Preliminary No growth in 3 days 09/21/17 14:30 Blood - Peripheral Aerobic Blood Culture - Final No growth in 5 days 09/21/17 14:30 Blood - Peripheral Anaerobic Blood Culture - Final No growth in 5 days 09/21/17 14:28 Blood - Peripheral Aerobic Blood Culture - Final No growth in 5 days 09/21/17 14:28 Blood - Peripheral Anaerobic Blood Culture - Final No growth in 5 days Assessment and Plan - Assessment (1) Cellulitis of left lower leg Code(s): L03.116 - Cellulitis of left lower limb Status: Acute Plan: on ancef and clindamycin, remaining afebrile, clindamycin d/roly as per ID recommendation (2) Lower extremity edema Code(s): R60.0 - Localized edema Status: Chronic Plan: states his primary has done extensive work up. May delay response to treatment, will keep elevated, his leg is tender to touch so compression stockings would cause his pain at this point , diuretics have not been effective in the past, trial yesterday made no difference in output and he doesnt want a higher dose. He wore compression stocking from [employer], discussed he may benefit from measured stockings once infection is resolved. (3) AMINA (obstructive sleep apnea) Code(s): G47.33 - Obstructive sleep apnea (adult) (pediatric) Status: Chronic Plan: continue cpap (4) COPD (chronic obstructive pulmonary disease) Code(s): J44.9 - Chronic obstructive pulmonary disease, unspecified Status: Suspected Plan: will continue on oxygen doing well with ventolin inhaler (4) COPD (chronic obstructive pulmonary disease) Qualifiers: COPD type: unspecified COPD Qualified Code(s): J44.9 - Chronic obstructive pulmonary disease, unspecified
--- NOTE | 2017-09-26 13:53 | P.PNID ---
Subjective Remarks: Chart reviewed 57-year-old male came in with an acute onset of fever and chills, followed by pain on his left lower extremity from the groin all the way to the foot. When he presented to the hospital he was then noted to have redness on his left leg. No prior history of cellulitis. Has had chronic left lower extremity swelling for years. No trauma. No known problem with athlete's foot. Denies any respiratory complaint. No nausea or vomiting. Has been on IV vancomycin. ID started Ancef 09/22. Notes reviewed Feels better Temps normal WBC remains 11 BC negative Stools better Noted blood in urine, and in urethra, some burning when he urinates No hx kidney stones, no abdominal pain or back pain Antibiotics: Ancef Lines: No evidence of infection Past Medical History: Lower extremity edema Morbid obesity with BMI of 45.0-49.9, adult AMINA (obstructive sleep apnea) Vascular insufficiency of extremity H/O arthroscopic knee surgery Allergies/Adverse Reactions: Allergies No Known Allergies Allergy (Unknown, Uncoded 09/21/17 13:37) NONE Objective Vital Signs 09/25/17 15:28 09/25/17 20:00 09/25/17 20:38 Temperature 98.9 F 98.8 F Pulse Rate 85 91 H Respiratory Rate 20 20 Blood Pressure 132/60 114/64 Pulse Oximetry 94 L 95 96 09/26/17 00:00 09/26/17 08:00 Temperature 97.9 F 98.8 F Pulse Rate 88 80 Respiratory Rate 20 19 Blood Pressure 119/63 111/63 Pulse Oximetry 93 L 95 Intake & Output 09/25/17 09/26/17 09/26/17 18:59 06:59 18:59 Intake Total 2360 / 2360 1810 / 1810 50 / 50 Output Total 600 / 600 350 / 350 Balance 1760 / 1760 1460 / 1460 50 / 50 Weight 181.4 kg Intake: IV 100 / 100 650 / 650 50 / 50 NS Inj 1,000 ML @ 70 mls/hr IV. 500 / 500 CONT .[id number] ISHAN Rx#: [id number] Cleocin 900 mg/NS Premix 900 mg 50 / 50 50 / 50 50 / 50 In 50 ml @ 100 mls/hr IV.SIG Q8H ISHAN Rx#:[id number] Ancef 2 GM Premix Inj 2 gm In 50 / 50 100 / 100 0 / 0 50 ml @ 100 mls/hr IV.SIG Q8H ISHAN Rx#:[id number] Oral 2260 / 2260 1160 / 1160 Output: Urine 600 / 600 350 / 350 Other: # Voids 2 1 Date of Last Bowel Movement 09/24/17 09/26/17 # Bowel Movements 2 09/23/17 16:08 Blood - Peripheral Aerobic Blood Culture - Preliminary No growth in 3 days 09/23/17 16:08 Blood - Peripheral Anaerobic Blood Culture - Preliminary No growth in 3 days 09/23/17 16:18 Blood - Peripheral Aerobic Blood Culture - Preliminary No growth in 3 days 09/23/17 16:18 Blood - Peripheral Anaerobic Blood Culture - Preliminary No growth in 3 days 09/21/17 14:30 Blood - Peripheral Aerobic Blood Culture - Final No growth in 5 days 09/21/17 14:30 Blood - Peripheral Anaerobic Blood Culture - Final No growth in 5 days 09/21/17 14:28 Blood - Peripheral Aerobic Blood Culture - Final No growth in 5 days 09/21/17 14:28 Blood - Peripheral Anaerobic Blood Culture - Final No growth in 5 days Lab - Hematology Results 09/25/17 09/26/17 06:38 05:45 CBC w Diff Slide review pending Auto diff final WBC 11.1 H 11.4 H RBC 4.01 L 4.31 L Hgb 11.4 L 12.1 L Hct 33.1 L 36.0 L MCV 82.6 83.5 MCH 28.4 27.9 MCHC 34.4 33.5 RDW 14.7 14.9 Plt Count 143 L 205 D MPV 9.4 9.1 Neut % (Auto) 83.7 H 81.7 H Lymph % (Auto) 11.2 11.9 [place] % (Auto) 4.8 5.9 Eos % (Auto) 0.1 0.3 Baso % (Auto) 0.2 0.2 Neut # (Auto) 9.4 H 9.3 H Lymph # (Auto) 1.2 1.4 [place] # (Auto) 0.5 0.7 Eos # (Auto) 0.0 0.0 Baso # (Auto) 0.0 0.0 WBC Differential . . Diff Scan Auto diff confirmed Differential Comment . . Lab - Chemistry Results 09/25/17 09/26/17 06:38 05:45 Sodium 135 L 136 Potassium 3.6 3.8 Chloride 103 103 Carbon Dioxide 25.0 27.1 Anion Gap 7 6 BUN 15 12 Creatinine 1.00 0.97 Estimated GFR 77 L 80 L Random Glucose 103 99 Calcium 7.5 L 7.5 L Total Bilirubin 0.5 0.5 AST 89 H 108 H ALT 110 H 112 H Alkaline Phosphatase 105 136 H Total Protein 5.8 L 5.9 L Albumin 1.9 L 1.9 L Imaging: ITS Impressions Venous Doppler Study 09/21/17 14:03 CONCLUSION: 1. Negative for deep venous thrombosis. Physical Exam: Physical Examination GENERAL: Awake and alert, not in respiratory distress. SKIN: Warm and dry. No generalized rash, no ecchymoses and no evidence of embolic lesions. HEAD: Atraumatic. Normocephalic. No temporal wasting, or tenderness. EYES: [place] conjunctiva. No petechia or hemorrhage. Pupils equal, round and reactive to light. Extraocular movements full and intact. No scleral icterus. No injection or drainage. EARS, NOSE AND THROAT: Nose without bleeding or purulent nasal discharge. No sinus tenderness. Mucous membranes pink and moist. No oral lesions noted. NECK: Trachea midline. Supple and not tender, no meningeal signs CARDIOVASCULAR: Regular rate and rhythm. No murmurs, rubs or gallops heard RESPIRATORY: Clear to auscultation. Breath sounds equal bilaterally. No rales , wheezing or rhonchi ABDOMEN: Soft, non-tender, nondistended. Bowel sounds present and normoactive. No guarding. No rebound. No organomegaly. EXTREMITIES: No clubbing, cyanosis. LLE markedly larger compared to the RLE. There is erythema and induration from below the L knee to ankle area, with [id number] texture, (+) warmth. There are also hemorrhagic component to his cellulitis in foot and ankle area. Very sensitive on palpation in ankle area. Has some bullous lesions, with clear serous fluid NEUROLOGICAL: Non-focal PSYCHIATRIC: Normal affect, calm and cooperative. LINE: No evidence of infection Assessment and Plan - Plan Impression Sepsis due to LLE cellulitis Acute onset severe cellulitis LLE, clinical presentation typical presentation of Strep - fevers and leukocytosis better Chronic LLE edema Hematuria Abnormal LFT Recommendation Continue IV Ancef Agree with stopping Clinda Check UA and C/S Edema control Elevate LLE Monitor progress Explained plan to patient and D/W Dr Bojorquez
[2017-09-26] MEDS: Enoxaparin Inj 40 MG/0.4 ML Syringe SQ SCH (17:05)
[2017-09-26 17:23] LABS: Bilirubin,Urine Negative (Negative); Clarity,Urine Clear (Clear); Color,Urine Yellow (Yellw/Straw); Glucose,Urine (UA) Negative (Negative); Leukocyte Esterase,Urine Negative (Negative); Nitrite,Urine Negative (Negative); PH,Urine 5.5 (5.0-8.5); Urobilinogen,Urine 0.2 mg/dL (Less than 2)
[2017-09-26 17:45] LABS: Squamous Epithelial Cell,Urine 0-5 /hpf (0-5); WBC,Urine 0-5 /hpf (0-5)
[2017-09-26] MEDS: Temazepam 15 MG Capsule PO PRN (22:48)
[2017-09-27] MEDS: ceFAZolin 2 GM Premix Inj 2 GM/50 ML PIGGYBACK IV.SIG SCH ×3 (04:23→20:01)
--- NOTE | 2017-09-27 07:42 | P.PN ---
Subjective Interval history: Patient denies any current complaints he still has significant swelling and redness of his left lower extremity which he states really had not changed much over the last several days. He denies any shortness of breath. No chest pain. No abdominal pain. Physical Exam Vital signs: Vital Signs 09/26/17 08:00 09/26/17 12:00 09/26/17 16:00 Temperature 98.8 F 96.9 F L 98.7 F Pulse Rate 80 78 83 Respiratory Rate 19 19 20 Blood Pressure 111/63 126/77 129/60 Pulse Oximetry 95 96 96 09/26/17 20:00 09/26/17 21:59 09/27/17 00:00 Temperature 98 F 98.6 F Pulse Rate 81 80 Respiratory Rate 20 20 Blood Pressure 120/81 114/67 Pulse Oximetry 96 96 96 09/27/17 04:00 Temperature 96 F L Pulse Rate 81 Respiratory Rate 20 Blood Pressure 108/62 Pulse Oximetry 96 Intake & Output 09/26/17 09/27/17 09/27/17 18:59 06:59 18:59 Intake Total 350 / 350 580 / 580 Output Total 500 / 500 475 / 475 Balance -150 / -150 105 / 105 Weight 181.4 kg Intake: IV 100 / 100 100 / 100 Cleocin 900 mg/NS Premix 900 mg 50 / 50 In 50 ml @ 100 mls/hr IV.SIG Q8H ISHAN Rx#:[id number] Ancef 2 GM Premix Inj 2 gm In 50 / 50 100 / 100 50 ml @ 100 mls/hr IV.SIG Q8H ISHAN Rx#:[id number] Oral 250 / 250 480 / 480 Output: Urine 500 / 500 475 / 475 Other: # Voids 3 Narrative: Exam: This is a pleasant white male in no distress. He is morbidly obese. HEENT: Pupils equal, EOMs intact, mouth without lesions Neck: No JVD, neck is supple Heart: Regular rate and rhythm without murmurs or gallops Lungs: Occasional wheeze Abdomen: Soft, nontender, obese, no masses Extremities: He has swelling of both lower extremities but much more swelling of the left lower extremity. He has a significant cellulitis still of the left lower leg that extends from the foot to the knee with some blistering of the skin and erythema. It however is not progressing up the leg since he was admitted. Pulses are palpated in the feet. Neuro: Alert, oriented, normal motor exam, sensation intact Results - Labs CBC & Chem 7: 09/26/17 05:45 09/26/17 05:45 Laboratory Results - last 24 hr 09/26/17 17:15 Ur Collection Type Clean catch Urine Color Yellow Urine Clarity Clear Urine pH 5.5 Ur Specific [place] 1.020 Urine Protein Trace Urine Glucose (UA) Negative Urine Ketones Negative Urine Occult Blood Small H Urine Nitrate Negative Urine Bilirubin Negative Urine Urobilinogen 0.2 Ur Leukocyte Esterase Negative Urine RBC 4-15 H Urine WBC 0-5 Ur Squamous Epith Cells 0-5 Micro UA Comment Culture not ind Urine Culture Comments Culture not ind Microbiology 09/23/17 16:08 Blood - Peripheral Aerobic Blood Culture - Preliminary No growth in 3 days 09/23/17 16:08 Blood - Peripheral Anaerobic Blood Culture - Preliminary No growth in 3 days 09/23/17 16:18 Blood - Peripheral Aerobic Blood Culture - Preliminary No growth in 3 days 09/23/17 16:18 Blood - Peripheral Anaerobic Blood Culture - Preliminary No growth in 3 days 09/21/17 14:30 Blood - Peripheral Aerobic Blood Culture - Final No growth in 5 days 09/21/17 14:30 Blood - Peripheral Anaerobic Blood Culture - Final No growth in 5 days 09/21/17 14:28 Blood - Peripheral Aerobic Blood Culture - Final No growth in 5 days 09/21/17 14:28 Blood - Peripheral Anaerobic Blood Culture - Final No growth in 5 days Laboratory Results - last 72 hr 09/24/17 09/24/17 09/25/17 06:40 13:10 06:38 CBC w Diff Slide review pending WBC 11.1 H RBC 4.01 L Hgb 11.4 L Hct 33.1 L MCV 82.6 MCH 28.4 MCHC 34.4 RDW 14.7 Plt Count 143 L MPV 9.4 Neut % (Auto) 83.7 H Lymph % (Auto) 11.2 [place] % (Auto) 4.8 Eos % (Auto) 0.1 Baso % (Auto) 0.2 Neut # (Auto) 9.4 H Lymph # (Auto) 1.2 [place] # (Auto) 0.5 Eos # (Auto) 0.0 Baso # (Auto) 0.0 WBC Differential . Diff Scan Auto diff confirmed Differential Comment . Sodium Potassium Chloride Carbon Dioxide Anion Gap BUN Creatinine Estimated GFR Random Glucose Calcium Prot Corrected Calcium 7.9 L Total Bilirubin 0.6 AST ALT Alkaline Phosphatase 92 Total Protein 6.1 L D Albumin Ur Collection Type Urine Color Urine Clarity Urine pH Ur Specific [place] Urine Protein Urine Glucose (UA) Urine Ketones Urine Occult Blood Urine Nitrate Urine Bilirubin Urine Urobilinogen Ur Leukocyte Esterase Urine RBC Urine WBC Ur Squamous Epith Cells Micro UA Comment Urine Culture Comments Stl C.difficile Tox PCR Negative St C. diff Tox Epid 027 Negative 09/25/17 09/26/17 09/26/17 06:38 05:45 05:45 CBC w Diff Auto diff final WBC 11.4 H RBC 4.31 L Hgb 12.1 L Hct 36.0 L MCV 83.5 MCH 27.9 MCHC 33.5 RDW 14.9 Plt Count 205 D MPV 9.1 Neut % (Auto) 81.7 H Lymph % (Auto) 11.9 [place] % (Auto) 5.9 Eos % (Auto) 0.3 Baso % (Auto) 0.2 Neut # (Auto) 9.3 H Lymph # (Auto) 1.4 [place] # (Auto) 0.7 Eos # (Auto) 0.0 Baso # (Auto) 0.0 WBC Differential . Diff Scan Differential Comment . Sodium 135 L 136 Potassium 3.6 3.8 Chloride 103 103 Carbon Dioxide 25.0 27.1 Anion Gap 7 6 BUN 15 12 Creatinine 1.00 0.97 Estimated GFR 77 L 80 L Random Glucose 103 99 Calcium 7.5 L 7.5 L Prot Corrected Calcium Total Bilirubin 0.5 0.5 AST 89 H 108 H ALT 110 H 112 H Alkaline Phosphatase 105 136 H Total Protein 5.8 L 5.9 L Albumin 1.9 L 1.9 L Ur Collection Type Urine Color Urine Clarity Urine pH Ur Specific [place] Urine Protein Urine Glucose (UA) Urine Ketones Urine Occult Blood Urine Nitrate Urine Bilirubin Urine Urobilinogen Ur Leukocyte Esterase Urine RBC Urine WBC Ur Squamous Epith Cells Micro UA Comment Urine Culture Comments Stl C.difficile Tox PCR St C. diff Tox Epid 027 09/26/17 17:15 CBC w Diff WBC RBC Hgb Hct MCV MCH MCHC RDW Plt Count MPV Neut % (Auto) Lymph % (Auto) [place] % (Auto) Eos % (Auto) Baso % (Auto) Neut # (Auto) Lymph # (Auto) [place] # (Auto) Eos # (Auto) Baso # (Auto) WBC Differential Diff Scan Differential Comment Sodium Potassium Chloride Carbon Dioxide Anion Gap BUN Creatinine Estimated GFR Random Glucose Calcium Prot Corrected Calcium Total Bilirubin AST ALT Alkaline Phosphatase Total Protein Albumin Ur Collection Type Clean catch Urine Color Yellow Urine Clarity Clear Urine pH 5.5 Ur Specific [place] 1.020 Urine Protein Trace Urine Glucose (UA) Negative Urine Ketones Negative Urine Occult Blood Small H Urine Nitrate Negative Urine Bilirubin Negative Urine Urobilinogen 0.2 Ur Leukocyte Esterase Negative Urine RBC 4-15 H Urine WBC 0-5 Ur Squamous Epith Cells 0-5 Micro UA Comment Culture not ind Urine Culture Comments Culture not ind Stl C.difficile Tox PCR St C. diff Tox Epid 027 - Imaging Venous Doppler Study 09/21/17 14:03 CONCLUSION: 1. Negative for deep venous thrombosis. Assessment and Plan - Assessment (1) Cellulitis of left lower leg Code(s): L03.116 - Cellulitis of left lower limb Status: Acute (2) Lower extremity edema Code(s): R60.0 - Localized edema Status: Chronic (3) AMINA (obstructive sleep apnea) Code(s): G47.33 - Obstructive sleep apnea (adult) (pediatric) Status: Chronic (4) COPD (chronic obstructive pulmonary disease) Code(s): J44.9 - Chronic obstructive pulmonary disease, unspecified Status: Suspected (5) Elevated liver enzymes Code(s): R74.8 - Abnormal levels of other serum enzymes Status: Chronic (6) Morbid obesity Code(s): E66.01 - Morbid (severe) obesity due to excess calories Status: Chronic - Plan Plan: Continue IV Ancef. The infectious disease specialist stopped the clindamycin yesterday. Continue Lovenox for DVT prophylaxis. Continue CPAP for sleep apnea. Continue nebulizer treatments as needed for low wheezing. I will order an ultrasound of the abdomen because of his elevated liver enzymes. Likely he has a fatty liver. (4) COPD (chronic obstructive pulmonary disease) Qualifiers: COPD type: unspecified COPD Qualified Code(s): J44.9 - Chronic obstructive pulmonary disease, unspecified
--- NOTE | 2017-09-27 10:10 | US ---
EXAM DATE: 09/27/2017 8:33 AM EDT AGE/SEX: 57 years / Male INDICATIONS: Elevated LFT's and hematuria. CLINICAL DATA: This is the patient's initial encounter. Patient reports that signs and symptoms have been present for 2 days and indicates a pain score of 0/10. MEDICAL/SURGICAL HISTORY: . Morbid obesity. Vascular insufficiency of the extremity. Left leg cellulitis. . Arthroscopic knee surgery COMPARISON: No prior exams available for comparison. MEASUREMENTS: Liver:__ 24.1 cm. Common Bile Duct:___ 6mm. Right Kidney:___13.4 x 6.8 x 6.5 cm. Left Kidney:___13.7 x 7.5 x 6.3 cm. Spleen:___13.8 cm. FINDINGS: Liver: Increased echotexture without focal lesion or ductal dilation. Portal Vein: Hepatopedal flow seen in portal vein. Common Duct: No intraluminal mass or stone visualized. Gallbladder: Demonstrates no wall thickening or pericholecystic fluid. Stones visualized. Pancreas: The visualized portions are within normal limits Right Kidney: Normal echotexture and cortical thickness. No solid mass or hydronephrosis. Approximat e 5 cm simple cyst is present in the right kidney. Left Kidney: Normal echotexture and cortical thickness. No mass or hydronephrosis. Ascites: None Pleural Effusion: None Spleen: No focal lesion. Aorta: Non aneurysmal. IVC: Within normal limits Other: None. CONCLUSION: 1. Cholelithiasis. 2. The liver is slightly echogenic which may be due to fatty infiltration and or hepatocellular dysf unction. Electronically signed by: Enrique Pradhan MD 09/27/2017 10:08 AM EDT
[2017-09-27] MEDS: Enoxaparin Inj 40 MG/0.4 ML Syringe SQ SCH (17:10)
[2017-09-27] MEDS: Temazepam 15 MG Capsule PO PRN (22:07)
[2017-09-28] MEDS: ceFAZolin 2 GM Premix Inj 2 GM/50 ML PIGGYBACK IV.SIG SCH ×3 (03:26→20:59)
--- NOTE | 2017-09-28 07:30 | P.PN ---
Subjective Interval history: He has no complaints. No shortness of breath. No increased pain in his leg. No abdominal pain, nausea, vomiting. Physical Exam Vital signs: Vital Signs 09/27/17 08:00 09/27/17 12:00 09/27/17 13:54 Temperature 96.8 F L 98.7 F Pulse Rate 95 H 80 Respiratory Rate 20 20 Blood Pressure 156/72 H 113/65 Pulse Oximetry 96 93 L 93 L 09/27/17 15:12 09/27/17 19:38 09/27/17 20:00 Temperature 96.2 F L 99.4 F Pulse Rate 83 85 Respiratory Rate 20 19 Blood Pressure 116/68 134/63 Pulse Oximetry 97 94 L 97 09/28/17 00:00 Temperature 99.0 F Pulse Rate 84 Respiratory Rate 19 Blood Pressure 114/56 L Pulse Oximetry 95 Intake & Output 09/27/17 09/28/17 09/28/17 18:59 06:59 18:59 Intake Total 790 / 790 580 / 580 Balance 790 / 790 580 / 580 Weight 181 kg Intake: IV 50 / 50 100 / 100 Ancef 2 GM Premix Inj 2 gm In 50 / 50 100 / 100 50 ml @ 100 mls/hr IV.SIG Q8H ISHAN Rx#:[id number] Oral 740 / 740 480 / 480 Other: # Voids 4 2 Date of Last Bowel Movement 09/26/17 Exam: This is a pleasant obese white male] in no distress. HEENT: Pupils equal, EOMs intact, mouth without lesions Neck: No JVD, neck is supple Heart: Regular rate and rhythm without murmurs or gallops Lungs: Clear to auscultation Abdomen: Soft, nontender, no masses Extremities: He still has quite significant edema in the left lower extremity from the foot all the way up to the knee. He has erythema from the knee all the way down to the foot secondary to his cellulitis. There is some blistering of parts of the skin with purulent purulent fluid underneath it. There is been no progression of the erythema and cellulitis proximally up the leg. Neuro: Alert, oriented, no motor or sensory deficits Results - Labs CBC & Chem 7: 09/26/17 05:45 09/26/17 05:45 Microbiology 09/23/17 16:08 Blood - Peripheral Aerobic Blood Culture - Preliminary No growth in 4 days 09/23/17 16:08 Blood - Peripheral Anaerobic Blood Culture - Preliminary No growth in 4 days 09/23/17 16:18 Blood - Peripheral Aerobic Blood Culture - Preliminary No growth in 4 days 09/23/17 16:18 Blood - Peripheral Anaerobic Blood Culture - Preliminary No growth in 4 days Laboratory Results - last 48 hr 09/26/17 17:15 Ur Collection Type Clean catch Urine Color Yellow Urine Clarity Clear Urine pH 5.5 Ur Specific [place] 1.020 Urine Protein Trace Urine Glucose (UA) Negative Urine Ketones Negative Urine Occult Blood Small H Urine Nitrate Negative Urine Bilirubin Negative Urine Urobilinogen 0.2 Ur Leukocyte Esterase Negative Urine RBC 4-15 H Urine WBC 0-5 Ur Squamous Epith Cells 0-5 Micro UA Comment Culture not ind Urine Culture Comments Culture not ind - Imaging Impressions Abdomen Ultrasound 09/27/17 00:00 CONCLUSION: 1. Cholelithiasis. 2. The liver is slightly echogenic which may be due to fatty infiltration and or hepatocellular dysfunction. Assessment and Plan - Assessment (1) Cellulitis of left lower leg Code(s): L03.116 - Cellulitis of left lower limb Status: Acute (2) Lower extremity edema Code(s): R60.0 - Localized edema Status: Chronic (3) AMINA (obstructive sleep apnea) Code(s): G47.33 - Obstructive sleep apnea (adult) (pediatric) Status: Chronic (4) COPD (chronic obstructive pulmonary disease) Code(s): J44.9 - Chronic obstructive pulmonary disease, unspecified Status: Suspected (5) Elevated liver enzymes Code(s): R74.8 - Abnormal levels of other serum enzymes Status: Chronic (6) Morbid obesity Code(s): E66.01 - Morbid (severe) obesity due to excess calories Status: Chronic (7) Fatty liver Code(s): K76.0 - Fatty (change of) liver, not elsewhere classified Status: Chronic (8) Cholelithiasis Code(s): K80.20 - Calculus of gallbladder without cholecystitis without obstruction Status: Chronic - Plan Plan: Continue IV Ancef. . Continue Lovenox for DVT prophylaxis. Continue CPAP for sleep apnea. Continue nebulizer treatments as needed for wheezing. (4) COPD (chronic obstructive pulmonary disease) Qualifiers: COPD type: unspecified COPD Qualified Code(s): J44.9 - Chronic obstructive pulmonary disease, unspecified
[2017-09-28 07:32] LABS: Baso % (Auto) 0.2 % (0.0-2.0); Eos # (Auto) 0.2 th/mm3 (0.0-0.4); Eos % (Auto) 1.5 % (0.0-4.0); Hematocrit 34.8 % (39.0-51.0); Hemoglobin 11.3 gm/dL (13.0-17.0); Lymph # (Auto) 2.4 th/mm3 (1.0-4.8); Lymph % (Auto) 18.5 % (9.0-44.0); Mean Corpuscular HGB Conc 32.6 % (32.0-36.0); Mean Platelet Volume 8.2 fL (7.0-11.0); Mono # (Auto) 0.7 th/mm3 (0.0-0.9); Mono % (Auto) 5.6 % (0.0-8.0); Neut # (Auto) 9.6 th/mm3 (1.8-7.7); Neut % (Auto) 74.2 % (16.0-70.0); Platelet Count 373 th/mm3 (150-450); Red Blood Count 4.04 mil/mm3 (4.50-5.90); Red Cell Distribution Width 14.3 % (11.6-17.2); White Blood Count 12.9 th/mm3 (4.0-11.0)
[2017-09-28 07:46] LABS: Albumin 1.7 g/dL (3.4-5.0); Calcium 7.7 mg/dL (8.5-10.1); Carbon Dioxide 30.1 meq/L (21.0-32.0)
[2017-09-28 07:51] LABS: Total Protein 5.7 g/dL (6.4-8.2)
--- NOTE | 2017-09-28 14:01 | P.PNID ---
Subjective Remarks: Chart reviewed 57-year-old male came in with an acute onset of fever and chills, followed by pain on his left lower extremity from the groin all the way to the foot. When he presented to the hospital he was then noted to have redness on his left leg. No prior history of cellulitis. Has had chronic left lower extremity swelling for years. No trauma. No known problem with athlete's foot. Denies any respiratory complaint. No nausea or vomiting. Has been on IV vancomycin. ID started Ancef 09/22. Notes reviewed Feels better Temps normal Developing more bullous lesions in distal leg Some improvement in edema, noted when he is in bed, able to move his foot and ankle more Gets increased pain when he dangles his legs and when he stands up Diarrhea resolving Eating more, appetite better BC negative UA did not show RBC Antibiotics: Ancef Lines: No evidence of infection Past Medical History: Lower extremity edema Morbid obesity with BMI of 45.0-49.9, adult AMINA (obstructive sleep apnea) Vascular insufficiency of extremity H/O arthroscopic knee surgery Allergies/Adverse Reactions: Allergies No Known Allergies Allergy (Unknown, Uncoded 09/21/17 13:37) NONE Objective Vital Signs 09/27/17 15:12 09/27/17 19:38 09/27/17 20:00 Temperature 96.2 F L 99.4 F Pulse Rate 83 85 Respiratory Rate 20 19 Blood Pressure 116/68 134/63 Pulse Oximetry 97 94 L 97 09/28/17 00:00 09/28/17 08:00 09/28/17 09:20 Temperature 99.0 F 97.8 F Pulse Rate 84 79 Respiratory Rate 19 20 Blood Pressure 114/56 L 125/69 Pulse Oximetry 95 98 93 L 09/28/17 12:00 Temperature 96 F L Pulse Rate 79 Respiratory Rate 20 Blood Pressure 132/72 Pulse Oximetry 96 Intake & Output 09/27/17 09/28/17 09/28/17 18:59 06:59 18:59 Intake Total 790 / 790 580 / 580 50 / 50 Balance 790 / 790 580 / 580 50 / 50 Weight 181 kg Intake: IV 50 / 50 100 / 100 50 / 50 Ancef 2 GM Premix Inj 2 gm In 50 / 50 100 / 100 50 / 50 50 ml @ 100 mls/hr IV.SIG Q8H ISHAN Rx#:[id number] Oral 740 / 740 480 / 480 Other: # Voids 4 2 Date of Last Bowel Movement 09/26/17 09/23/17 16:08 Blood - Peripheral Aerobic Blood Culture - Final No growth in 5 days 09/23/17 16:08 Blood - Peripheral Anaerobic Blood Culture - Final No growth in 5 days 09/23/17 16:18 Blood - Peripheral Aerobic Blood Culture - Final No growth in 5 days 09/23/17 16:18 Blood - Peripheral Anaerobic Blood Culture - Final No growth in 5 days 09/21/17 14:30 Blood - Peripheral Aerobic Blood Culture - Final No growth in 5 days 09/21/17 14:30 Blood - Peripheral Anaerobic Blood Culture - Final No growth in 5 days 09/21/17 14:28 Blood - Peripheral Aerobic Blood Culture - Final No growth in 5 days 09/21/17 14:28 Blood - Peripheral Anaerobic Blood Culture - Final No growth in 5 days Lab - Hematology Results 09/28/17 07:00 CBC w Diff Auto diff final WBC 12.9 H RBC 4.04 L Hgb 11.3 L Hct 34.8 L MCV 86.0 MCH 28.0 MCHC 32.6 RDW 14.3 Plt Count 373 D MPV 8.2 Neut % (Auto) 74.2 H Lymph % (Auto) 18.5 [place] % (Auto) 5.6 Eos % (Auto) 1.5 Baso % (Auto) 0.2 Neut # (Auto) 9.6 H Lymph # (Auto) 2.4 [place] # (Auto) 0.7 Eos # (Auto) 0.2 Baso # (Auto) 0.0 WBC Differential . Differential Comment . Lab - Chemistry Results 09/28/17 07:00 Sodium 138 Potassium 4.0 Chloride 102 Carbon Dioxide 30.1 Anion Gap 6 BUN 10 Creatinine 0.94 Estimated GFR 83 L Random Glucose 133 H Calcium 7.7 L Total Bilirubin 0.5 Direct Bilirubin 0.1 Indirect Bilirubin 0.4 AST 85 H ALT 93 H Alkaline Phosphatase 169 H Total Protein 5.7 L Albumin 1.7 L Imaging: ITS Impressions Venous Doppler Study 09/21/17 14:03 CONCLUSION: 1. Negative for deep venous thrombosis. Abdomen Ultrasound 09/27/17 00:00 CONCLUSION: 1. Cholelithiasis. 2. The liver is slightly echogenic which may be due to fatty infiltration and or hepatocellular dysfunction. Physical Exam: Physical Examination GENERAL: Awake and alert, not in respiratory distress. SKIN: Warm and dry. No generalized rash. HEAD: Atraumatic. Normocephalic. No temporal wasting, or tenderness. EYES: [place] conjunctiva. No petechia or hemorrhage. No scleral icterus. No injection or drainage. EARS, NOSE AND THROAT: Nose without bleeding or purulent nasal discharge. Mucous membranes pink and moist. No oral lesions noted. NECK: Trachea midline. Supple and not tender, no meningeal signs CARDIOVASCULAR: Regular rate and rhythm. No murmurs, rubs or gallops heard RESPIRATORY: Clear to auscultation. Breath sounds equal bilaterally. No rales , wheezing or rhonchi ABDOMEN: Soft, non-tender, nondistended. Bowel sounds present and normoactive. No guarding. No rebound. No organomegaly. EXTREMITIES: No clubbing, cyanosis. LLE markedly larger compared to the RLE. Dark red color from below knee to foot, with hemorrhagic component. Has bullous lesions in lower L leg with serous fluid, some kristine of denuded skin in upper L leg. Dry skin on dorsum of his L foot, with some peeling of skin. Some mild improvement in swelling. Not as sensitive on palpation. NEUROLOGICAL: Non-focal PSYCHIATRIC: Normal affect, calm and cooperative. LINE: No evidence of infection Assessment and Plan - Plan Impression Sepsis due to LLE cellulitis Acute onset severe cellulitis LLE, clinical presentation typical presentation of Strep - fevers and leukocytosis better - has some hemorrhagic component to his cellulitis Chronic LLE edema Hematuria Abnormal LFT Recommendation Continue IV Ancef Edema control - if able to, maybe PREM wrap can be tried in few days to help with edema control Elevate LLE Monitor progress Explained plan to patient and mother
[2017-09-28] MEDS: Enoxaparin Inj 40 MG/0.4 ML Syringe SQ SCH (16:58)
[2017-09-28] MEDS: Temazepam 15 MG Capsule PO PRN (21:53)
[2017-09-29] MEDS: ceFAZolin 2 GM Premix Inj 2 GM/50 ML PIGGYBACK IV.SIG SCH ×3 (04:10→20:15)
[2017-09-29] MEDS: Acetaminophen 325 MG Tablet PO PRN (04:10)
[2017-09-29 06:23] LABS: Baso % (Auto) 0.1 % (0.0-2.0); Eos # (Auto) 0.3 th/mm3 (0.0-0.4); Eos % (Auto) 2.4 % (0.0-4.0); Hemoglobin 11.3 gm/dL (13.0-17.0); Lymph # (Auto) 2.6 th/mm3 (1.0-4.8); Lymph % (Auto) 19.8 % (9.0-44.0); Mean Corpuscular HGB Conc 32.3 % (32.0-36.0); Mean Corpuscular Hemoglobin 27.8 pg (27.0-34.0); Mean Corpuscular Volume 86.2 fL (80.0-100.0); Mean Platelet Volume 8.1 fL (7.0-11.0); Mono # (Auto) 0.8 th/mm3 (0.0-0.9); Mono % (Auto) 6.3 % (0.0-8.0); Neut # (Auto) 9.3 th/mm3 (1.8-7.7); Neut % (Auto) 71.4 % (16.0-70.0); Platelet Count 450 th/mm3 (150-450); Red Blood Count 4.05 mil/mm3 (4.50-5.90); Red Cell Distribution Width 14.4 % (11.6-17.2)
--- NOTE | 2017-09-29 07:24 | P.PN ---
Subjective Interval history: No new complaints. Physical Exam Vital signs: Vital Signs 09/28/17 08:00 09/28/17 09:20 09/28/17 12:00 Temperature 97.8 F 96 F L Pulse Rate 79 79 Respiratory Rate 20 20 Blood Pressure 125/69 132/72 Pulse Oximetry 98 93 L 96 09/28/17 16:00 09/28/17 20:00 09/29/17 00:00 Temperature 97.2 F L 98.4 F 98.0 F Pulse Rate 83 86 89 Respiratory Rate 20 18 18 Blood Pressure 132/72 122/62 113/60 Pulse Oximetry 98 96 96 Intake & Output 09/28/17 09/29/17 09/29/17 18:59 06:59 18:59 Intake Total 1171 / 1171 1600 / 1600 Balance 1171 / 1171 1600 / 1600 Weight 181 kg Intake: IV 50 / 50 100 / 100 Ancef 2 GM Premix Inj 2 gm In 50 / 50 100 / 100 50 ml @ 100 mls/hr IV.SIG Q8H ISHAN Rx#:[id number] Oral 1121 / 1121 1500 / 1500 Other: # Voids 3 2 # Bowel Movements 1 Narrative: Exam: This is a pleasant white male in no distress. He is morbidly obese. HEENT: Pupils equal, EOMs intact, mouth without lesions Neck: No JVD, neck is supple Heart: Regular rate and rhythm without murmurs or gallops Lungs: Occasional wheeze Abdomen: Soft, nontender, obese, no masses Extremities: He has swelling of both lower extremities but much more swelling of the left lower extremity. He has a significant cellulitis still of the left lower leg that extends from the foot to the knee with some blistering of the skin and erythema. It however is not progressing up the leg since he was admitted. Pulses are palpated in the feet. There are bullous areas with yellow fluid underneath and some area where the top superficial layer of skin has sloughed off. Neuro: Alert, oriented, normal motor exam, sensation intact Results - Labs CBC & Chem 7: 09/29/17 05:45 09/28/17 07:00 Laboratory Results - last 24 hr 09/28/17 09/28/17 09/29/17 07:00 07:00 05:45 CBC w Diff Auto diff final Auto diff final WBC 12.9 H 13.0 H RBC 4.04 L 4.05 L Hgb 11.3 L 11.3 L Hct 34.8 L 35.0 L MCV 86.0 86.2 MCH 28.0 27.8 MCHC 32.6 32.3 RDW 14.3 14.4 Plt Count 373 D 450 MPV 8.2 8.1 Neut % (Auto) 74.2 H 71.4 H Lymph % (Auto) 18.5 19.8 [place] % (Auto) 5.6 6.3 Eos % (Auto) 1.5 2.4 Baso % (Auto) 0.2 0.1 Neut # (Auto) 9.6 H 9.3 H Lymph # (Auto) 2.4 2.6 [place] # (Auto) 0.7 0.8 Eos # (Auto) 0.2 0.3 Baso # (Auto) 0.0 0.0 WBC Differential . . Differential Comment . . Sodium 138 Potassium 4.0 Chloride 102 Carbon Dioxide 30.1 Anion Gap 6 BUN 10 Creatinine 0.94 Estimated GFR 83 L Random Glucose 133 H Calcium 7.7 L Total Bilirubin 0.5 Direct Bilirubin 0.1 Indirect Bilirubin 0.4 AST 85 H ALT 93 H Alkaline Phosphatase 169 H Total Protein 5.7 L Albumin 1.7 L Microbiology 09/23/17 16:08 Blood - Peripheral Aerobic Blood Culture - Final No growth in 5 days 09/23/17 16:08 Blood - Peripheral Anaerobic Blood Culture - Final No growth in 5 days 09/23/17 16:18 Blood - Peripheral Aerobic Blood Culture - Final No growth in 5 days 09/23/17 16:18 Blood - Peripheral Anaerobic Blood Culture - Final No growth in 5 days Assessment and Plan - Assessment (1) Cellulitis of left lower leg Code(s): L03.116 - Cellulitis of left lower limb Status: Acute Plan: (2) Lower extremity edema Code(s): R60.0 - Localized edema Status: Chronic (3) AMINA (obstructive sleep apnea) Code(s): G47.33 - Obstructive sleep apnea (adult) (pediatric) Status: Chronic (4) COPD (chronic obstructive pulmonary disease) Code(s): J44.9 - Chronic obstructive pulmonary disease, unspecified Status: Suspected (5) Elevated liver enzymes Code(s): R74.8 - Abnormal levels of other serum enzymes Status: Chronic (6) Morbid obesity Code(s): E66.01 - Morbid (severe) obesity due to excess calories Status: Chronic (7) Fatty liver Code(s): K76.0 - Fatty (change of) liver, not elsewhere classified Status: Chronic (8) Cholelithiasis Code(s): K80.20 - Calculus of gallbladder without cholecystitis without obstruction Status: Chronic - Plan Plan: Continue IV Ancef. . Continue Lovenox for DVT prophylaxis. Continue CPAP for sleep apnea. Continue nebulizer treatments as needed for wheezing. (4) COPD (chronic obstructive pulmonary disease) Qualifiers: COPD type: unspecified COPD Qualified Code(s): J44.9 - Chronic obstructive pulmonary disease, unspecified
--- NOTE | 2017-09-29 12:41 | P.PNID ---
Subjective Remarks: Chart reviewed 57-year-old male came in with an acute onset of fever and chills, followed by pain on his left lower extremity from the groin all the way to the foot. When he presented to the hospital he was then noted to have redness on his left leg. No prior history of cellulitis. Has had chronic left lower extremity swelling for years. No trauma. No known problem with athlete's foot. Denies any respiratory complaint. No nausea or vomiting. Has been on IV vancomycin. ID started Ancef 09/22. Notes reviewed Feels better Temps normal Developing more bullous lesions in distal leg Wound care saw patient today - noted one of unroofed bullous lesion (+) odor, sent for C/S Has dressing on leg with PREM wrap Some improvement in edema, noted when he is in bed, able to move his foot and ankle more Gets increased pain when he dangles his legs and when he stands up Diarrhea resolving Eating more, appetite better BC negative UA did not show RBC Antibiotics: Ancef Lines: No evidence of infection Past Medical History: Lower extremity edema Morbid obesity with BMI of 45.0-49.9, adult AMINA (obstructive sleep apnea) Vascular insufficiency of extremity H/O arthroscopic knee surgery Allergies/Adverse Reactions: Allergies No Known Allergies Allergy (Unknown, Uncoded 09/21/17 13:37) NONE Objective Vital Signs 09/28/17 16:00 09/28/17 20:00 09/29/17 00:00 Temperature 97.2 F L 98.4 F 98.0 F Pulse Rate 83 86 89 Respiratory Rate 20 18 18 Blood Pressure 132/72 122/62 113/60 Pulse Oximetry 98 96 96 09/29/17 08:00 09/29/17 09:03 Temperature 96.7 F L Pulse Rate 81 Respiratory Rate 20 Blood Pressure 115/60 Pulse Oximetry 95 96 Intake & Output 09/28/17 09/29/17 09/29/17 18:59 06:59 18:59 Intake Total 1171 / 1171 1600 / 1600 Balance 1171 / 1171 1600 / 1600 Weight 181 kg Intake: IV 50 / 50 100 / 100 Ancef 2 GM Premix Inj 2 gm In 50 / 50 100 / 100 50 ml @ 100 mls/hr IV.SIG Q8H ISHAN Rx#:[id number] Oral 1121 / 1121 1500 / 1500 Other: # Voids 3 2 # Bowel Movements 1 09/29/17 11:30 Wound - Leg Gram Stain - Pending 09/29/17 11:30 Wound - Leg Wound Culture - Pending 09/29/17 11:10 Wound - Leg Gram Stain - Pending 09/29/17 11:10 Wound - Leg Wound Culture - Pending 09/23/17 16:08 Blood - Peripheral Aerobic Blood Culture - Final No growth in 5 days 09/23/17 16:08 Blood - Peripheral Anaerobic Blood Culture - Final No growth in 5 days 09/23/17 16:18 Blood - Peripheral Aerobic Blood Culture - Final No growth in 5 days 09/23/17 16:18 Blood - Peripheral Anaerobic Blood Culture - Final No growth in 5 days 09/21/17 14:30 Blood - Peripheral Aerobic Blood Culture - Final No growth in 5 days 09/21/17 14:30 Blood - Peripheral Anaerobic Blood Culture - Final No growth in 5 days 09/21/17 14:28 Blood - Peripheral Aerobic Blood Culture - Final No growth in 5 days 09/21/17 14:28 Blood - Peripheral Anaerobic Blood Culture - Final No growth in 5 days Lab - Hematology Results 09/28/17 09/29/17 07:00 05:45 CBC w Diff Auto diff final Auto diff final WBC 12.9 H 13.0 H RBC 4.04 L 4.05 L Hgb 11.3 L 11.3 L Hct 34.8 L 35.0 L MCV 86.0 86.2 MCH 28.0 27.8 MCHC 32.6 32.3 RDW 14.3 14.4 Plt Count 373 D 450 MPV 8.2 8.1 Neut % (Auto) 74.2 H 71.4 H Lymph % (Auto) 18.5 19.8 [place] % (Auto) 5.6 6.3 Eos % (Auto) 1.5 2.4 Baso % (Auto) 0.2 0.1 Neut # (Auto) 9.6 H 9.3 H Lymph # (Auto) 2.4 2.6 [place] # (Auto) 0.7 0.8 Eos # (Auto) 0.2 0.3 Baso # (Auto) 0.0 0.0 WBC Differential . . Differential Comment . . Lab - Chemistry Results 09/28/17 07:00 Sodium 138 Potassium 4.0 Chloride 102 Carbon Dioxide 30.1 Anion Gap 6 BUN 10 Creatinine 0.94 Estimated GFR 83 L Random Glucose 133 H Calcium 7.7 L Total Bilirubin 0.5 Direct Bilirubin 0.1 Indirect Bilirubin 0.4 AST 85 H ALT 93 H Alkaline Phosphatase 169 H Total Protein 5.7 L Albumin 1.7 L Imaging: ITS Impressions Venous Doppler Study 09/21/17 14:03 CONCLUSION: 1. Negative for deep venous thrombosis. Abdomen Ultrasound 09/27/17 00:00 CONCLUSION: 1. Cholelithiasis. 2. The liver is slightly echogenic which may be due to fatty infiltration and or hepatocellular dysfunction. Physical Exam: Physical Examination GENERAL: Awake and alert, not in respiratory distress. SKIN: Warm and dry. No generalized rash. HEAD: Atraumatic. Normocephalic. No temporal wasting, or tenderness. EYES: [place] conjunctiva. No petechia or hemorrhage. No scleral icterus. No injection or drainage. EARS, NOSE AND THROAT: Nose without bleeding or purulent nasal discharge. Mucous membranes pink and moist. No oral lesions noted. NECK: Trachea midline. Supple and not tender, no meningeal signs CARDIOVASCULAR: Regular rate and rhythm. No murmurs, rubs or gallops heard RESPIRATORY: Clear to auscultation. Breath sounds equal bilaterally. No rales , wheezing or rhonchi ABDOMEN: Soft, non-tender, nondistended. Bowel sounds present and normoactive. No guarding. No rebound. No organomegaly. EXTREMITIES: No clubbing, cyanosis. Had dressing on his LLE from knee to foot , no lymphangitis seen in L thigh. Dressing is dry and intact NEUROLOGICAL: Non-focal PSYCHIATRIC: Normal affect, calm and cooperative. LINE: No evidence of infection Assessment and Plan - Plan Impression Sepsis due to LLE cellulitis Acute onset severe cellulitis LLE, clinical presentation typical presentation of Strep - fevers and leukocytosis better - has some hemorrhagic component to his cellulitis - has bullous lesions, ?secondary infected Chronic LLE edema Hematuria Abnormal LFT Recommendation Continue IV Ancef Edema control Elevate LLE Monitor progress Explained plan to patient and mother Spoke with at bedside Dr Fernández to follow starting tomorrow 09/30
--- NOTE | 2017-09-29 12:53 | P.PNWCN ---
Wound Care Nurse Consult Description: Wound consult ordered by for wound management. Communicated with: Gauri WELCH,, Recommendation: 1. Cleanse left lower extremity with warm antibacterial soap and water rinse, pat dry. 2. Apply Xeroform single layer to open/weeping areas, Cover with ABD secure with rolled gauze/prem wrap. 3. Change dressing daily or as needed for dislodgement/exudate. 4. Sign and date all dressings. 5. Follow up with out patient wound center. Additional information: Patient was seen today by pattern chart writer for wound management.Patient alert and oriented sitting up in bed only complaint is pain in left lower extremity rated @ 8/10 (0-10) pain scale .Left lower extremity is currently open to air +3 pitting edema with multiple diffuse areas of serous weeping present.Patient has +2 pedal pulse .Left lower extremity from ~1inch below knee to tip of digits has warm non blanchable erythema with purple roofed and unroofed diffuse bullas present.LLE tender to touch with moderate serous exudate noted to UltraSorb pad.LLE medial dorsal foot was cleansed with normal saline and purple bulla become unroofed with moderate serosanguineous exudate noted culture swab obtained faint odor present delivered to lab.Purple bullas and Purple/black staining areas remain confined to LLE below knee from previous markings..LLE extremity cleansed with wound cleanser pat dry .Xeroform applied to open weeping areas covered with ABDs secured with rolled gauze PREM wrap.Patient currently weighs 399lbs bariatric bed ordered and delivered pattern chart writer set weight on Airrepy and extended to 48 inch frame. Wound/Pressure Injury - Patient Status Premedicated for Pain Prior to Dressing Change: Yes - Wound Left Lower Leg Wound Assessment: Ongoing Wound Type: Blister Is This a Chronic Wound: Yes Requested from Provider a Wound Care Consult: No (Jose WELCH,[facility] seen 09/29) Wound Bed Appearance: Blisters - Intact, Edematous, Necrotic, Peeling Skin, Red , Shiny, Yellow Surrounding Tissue Appearance: Edematous, Erythema, Indurated, [place], Weeping Surrounding Tissue Temperature: Warm Drainage Description: Serosanguinous Drainage Amount: Moderate Drainage Odor: Slight Odor Dressing Status: Changed Cleansing Solution: Saline Primary Dressing: Non-Adherent Gauze Pad Cover Dressing: Absorbant Pad Tape Type: PREM wrap Wound Dressing Change Date: 09/29/17
[2017-09-29] MEDS: Enoxaparin Inj 40 MG/0.4 ML Syringe SQ SCH (17:53)
[2017-09-29] MEDS: Temazepam 15 MG Capsule PO PRN (23:41)
[2017-09-30] MEDS: ceFAZolin 2 GM Premix Inj 2 GM/50 ML PIGGYBACK IV.SIG SCH ×2 (05:26→12:09)
--- NOTE | 2017-09-30 06:41 | P.PN ---
Subjective Interval history: No shortness of breath. No leg pain. Seen by wound care yesterday. No abdominal pain. Physical Exam Vital signs: Vital Signs 09/29/17 08:00 09/29/17 09:03 09/29/17 12:00 Temperature 96.7 F L 97.4 F L Pulse Rate 81 84 Respiratory Rate 20 20 Blood Pressure 115/60 127/63 Pulse Oximetry 95 96 94 L 09/29/17 16:00 09/29/17 19:15 09/29/17 20:00 Temperature 97.4 F L 98.4 F Pulse Rate 84 86 Respiratory Rate 20 20 Blood Pressure 137/71 143/75 H Pulse Oximetry 95 94 L 96 09/30/17 00:45 09/30/17 04:00 Temperature 98.1 F 98.1 F Pulse Rate 82 84 Respiratory Rate 20 21 Blood Pressure 133/74 133/68 Pulse Oximetry 95 97 Intake & Output 09/29/17 09/29/17 09/30/17 06:59 18:59 06:59 Intake Total 1600 / 1600 1010 / 1010 820 / 820 Output Total 600 / 600 Balance 1600 / 1600 1010 / 1010 220 / 220 Weight 181 kg Intake: IV 100 / 100 50 / 50 100 / 100 Ancef 2 GM Premix Inj 2 gm In 100 / 100 50 / 50 100 / 100 50 ml @ 100 mls/hr IV.SIG Q8H ISHAN Rx#:[id number] Oral 1500 / 1500 960 / 960 720 / 720 Output: Urine 600 / 600 Other: # Voids 2 6 Date of Last Bowel Movement 09/29/17 # Bowel Movements 1 Narrative: Exam: This is a pleasant white male in no distress. He is morbidly obese. HEENT: Pupils equal, EOMs intact, mouth without lesions Neck: No JVD, neck is supple Heart: Regular rate and rhythm without murmurs or gallops Lungs: Occasional wheeze Abdomen: Soft, nontender, obese, no masses Extremities: He has swelling of both lower extremities but much more swelling of the left lower extremity. Swelling seems little decreased from previously. He has a significant cellulitis stillof the left lower leg that extends from the foot to the knee with some blistering of the skin and erythema. It however is not progressing up the leg since he was admitted. Pulses are palpated in the feet. There are bullous areas with yellow fluid underneath and some area where the top superficial layer of skin has sloughed off. Neuro: Alert, oriented, normal motor exam, sensation intact Results - Labs CBC & Chem 7: 09/29/17 05:45 09/28/17 07:00 Laboratory Results - last 72 hr 09/28/17 09/28/17 09/29/17 07:00 07:00 05:45 CBC w Diff Auto diff final Auto diff final WBC 12.9 H 13.0 H RBC 4.04 L 4.05 L Hgb 11.3 L 11.3 L Hct 34.8 L 35.0 L MCV 86.0 86.2 MCH 28.0 27.8 MCHC 32.6 32.3 RDW 14.3 14.4 Plt Count 373 D 450 MPV 8.2 8.1 Neut % (Auto) 74.2 H 71.4 H Lymph % (Auto) 18.5 19.8 [place] % (Auto) 5.6 6.3 Eos % (Auto) 1.5 2.4 Baso % (Auto) 0.2 0.1 Neut # (Auto) 9.6 H 9.3 H Lymph # (Auto) 2.4 2.6 [place] # (Auto) 0.7 0.8 Eos # (Auto) 0.2 0.3 Baso # (Auto) 0.0 0.0 WBC Differential . . Differential Comment . . Sodium 138 Potassium 4.0 Chloride 102 Carbon Dioxide 30.1 Anion Gap 6 BUN 10 Creatinine 0.94 Estimated GFR 83 L Random Glucose 133 H Calcium 7.7 L Total Bilirubin 0.5 Direct Bilirubin 0.1 Indirect Bilirubin 0.4 AST 85 H ALT 93 H Alkaline Phosphatase 169 H Total Protein 5.7 L Albumin 1.7 L Assessment and Plan - Assessment (1) Cellulitis of left lower leg Code(s): L03.116 - Cellulitis of left lower limb Status: Acute (2) Lower extremity edema Code(s): R60.0 - Localized edema Status: Chronic (3) AMINA (obstructive sleep apnea) Code(s): G47.33 - Obstructive sleep apnea (adult) (pediatric) Status: Chronic (4) COPD (chronic obstructive pulmonary disease) Code(s): J44.9 - Chronic obstructive pulmonary disease, unspecified Status: Suspected (5) Elevated liver enzymes Code(s): R74.8 - Abnormal levels of other serum enzymes Status: Chronic (6) Morbid obesity Code(s): E66.01 - Morbid (severe) obesity due to excess calories Status: Chronic (7) Fatty liver Code(s): K76.0 - Fatty (change of) liver, not elsewhere classified Status: Chronic (8) Cholelithiasis Code(s): K80.20 - Calculus of gallbladder without cholecystitis without obstruction Status: Chronic - Plan Plan: Continue IV Ancef. . Continue Lovenox for DVT prophylaxis. Continue CPAP for sleep apnea. Continue nebulizer treatments as needed for wheezing. Antibiotic treatment as per infectious disease. Wound care also on board. (4) COPD (chronic obstructive pulmonary disease) Qualifiers: COPD type: unspecified COPD Qualified Code(s): J44.9 - Chronic obstructive pulmonary disease, unspecified
[2017-09-30 06:45] LABS: Baso % (Auto) 0.3 % (0.0-2.0); Eos # (Auto) 0.5 th/mm3 (0.0-0.4); Eos % (Auto) 3.4 % (0.0-4.0); Hemoglobin 12.8 gm/dL (13.0-17.0); Lymph # (Auto) 2.8 th/mm3 (1.0-4.8); Lymph % (Auto) 18.6 % (9.0-44.0); Mean Corpuscular HGB Conc 33.8 % (32.0-36.0); Mean Platelet Volume 7.9 fL (7.0-11.0); Mono # (Auto) 0.9 th/mm3 (0.0-0.9); Mono % (Auto) 6.1 % (0.0-8.0); Neut % (Auto) 71.6 % (16.0-70.0); Platelet Count 568 th/mm3 (150-450); Red Blood Count 4.42 mil/mm3 (4.50-5.90); Red Cell Distribution Width 14.2 % (11.6-17.2); White Blood Count 15.2 th/mm3 (4.0-11.0)
--- NOTE | 2017-09-30 17:01 | P.PNID ---
Subjective Remarks: ID coverage: 57-year-old male came in with an acute onset of fever and chills, followed by pain on his left lower extremity from the groin all the way to the foot. When he presented to the hospital he was then noted to have redness on his left leg. No prior history of cellulitis. Has had chronic left lower extremity swelling for years. No trauma. No known problem with athlete's foot. Denies any respiratory complaint. No nausea or vomiting. Has been on IV vancomycin. ID started Ancef 09/22. Notes reviewed Feels okay. Temps normal Denies chills. Has dressing on leg with PREM wrap Eating more, appetite better BC negative Lines: No evidence of infection Past Medical History: Lower extremity edema Morbid obesity with BMI of 45.0-49.9, adult AMINA (obstructive sleep apnea) Vascular insufficiency of extremity H/O arthroscopic knee surgery Allergies/Adverse Reactions: Allergies No Known Allergies Allergy (Unknown, Uncoded 09/21/17 13:37) NONE Objective Vital Signs 09/29/17 19:15 09/29/17 20:00 09/30/17 00:45 Temperature 98.4 F 98.1 F Pulse Rate 86 82 Respiratory Rate 20 20 Blood Pressure 143/75 H 133/74 Pulse Oximetry 94 L 96 95 09/30/17 04:00 09/30/17 07:30 09/30/17 08:00 Temperature 98.1 F 97.0 F L Pulse Rate 84 82 Respiratory Rate 21 19 Blood Pressure 133/68 135/72 Pulse Oximetry 97 95 95 09/30/17 12:00 Temperature 96.9 F L Pulse Rate 84 Respiratory Rate 20 Blood Pressure 134/79 Pulse Oximetry 96 Intake & Output 09/29/17 09/30/17 09/30/17 18:59 06:59 18:59 Intake Total 1010 / 1010 820 / 820 50 / 50 Output Total 600 / 600 Balance 1010 / 1010 220 / 220 50 / 50 Intake: IV 50 / 50 100 / 100 50 / 50 Ancef 2 GM Premix Inj 2 gm In 50 / 50 100 / 100 50 / 50 50 ml @ 100 mls/hr IV.SIG Q8H ISHAN Rx#:[id number] Oral 960 / 960 720 / 720 Output: Urine 600 / 600 Other: # Voids 6 Date of Last Bowel Movement 09/29/17 # Bowel Movements 1 09/29/17 11:30 Wound - Leg Gram Stain - Final 09/29/17 11:30 Wound - Leg Wound Culture - Preliminary No growth in 24 hours 09/29/17 11:10 Wound - Leg Gram Stain - Final 09/29/17 11:10 Wound - Leg Wound Culture - Preliminary No growth in 24 hours 09/23/17 16:08 Blood - Peripheral Aerobic Blood Culture - Final No growth in 5 days 09/23/17 16:08 Blood - Peripheral Anaerobic Blood Culture - Final No growth in 5 days 09/23/17 16:18 Blood - Peripheral Aerobic Blood Culture - Final No growth in 5 days 09/23/17 16:18 Blood - Peripheral Anaerobic Blood Culture - Final No growth in 5 days Lab - Hematology Results 09/29/17 09/30/17 05:45 06:23 CBC w Diff Auto diff final Auto diff final WBC 13.0 H 15.2 H RBC 4.05 L 4.42 L Hgb 11.3 L 12.8 L Hct 35.0 L 38.0 L MCV 86.2 86.0 MCH 27.8 29.0 MCHC 32.3 33.8 RDW 14.4 14.2 Plt Count 450 568 H MPV 8.1 7.9 Neut % (Auto) 71.4 H 71.6 H Lymph % (Auto) 19.8 18.6 [place] % (Auto) 6.3 6.1 Eos % (Auto) 2.4 3.4 Baso % (Auto) 0.1 0.3 Neut # (Auto) 9.3 H 11.0 H Lymph # (Auto) 2.6 2.8 [place] # (Auto) 0.8 0.9 Eos # (Auto) 0.3 0.5 H Baso # (Auto) 0.0 0.0 WBC Differential . . Differential Comment . . Imaging: ITS Impressions Venous Doppler Study 09/21/17 14:03 CONCLUSION: 1. Negative for deep venous thrombosis. Abdomen Ultrasound 09/27/17 00:00 CONCLUSION: 1. Cholelithiasis. 2. The liver is slightly echogenic which may be due to fatty infiltration and or hepatocellular dysfunction. Physical Exam: GENERAL: SKIN: Warm and dry. HEAD: Normocephalic. EYES: No scleral icterus. No injection or drainage. NECK: Supple, trachea midline. No JVD or lymphadenopathy. CARDIOVASCULAR: Regular rate and rhythm without murmurs, gallops, or rubs. RESPIRATORY: Breath sounds equal bilaterally. No accessory muscle use. GASTROINTESTINAL: Abdomen soft, non-tender, nondistended. MUSCULOSKELETAL: Left leg has marked swelling. The anterior tibial area is covered by a layer of Membranous orange peel appearance of tissue with dark discoloration and some denuded areas. There is erythema of the skin above the demarcation line near the knee. The dorsum of the foot has dry erythematous patch of skin. The leg is warm. NEURO: Nonfocal. PSYCH: Calm and cooperative. Assessment and Plan - Plan Impression Sepsis due to LLE cellulitis Acute onset severe cellulitis LLE, clinical presentation typical presentation of Strep. Slow to improve. - fevers and leukocytosis better - has some hemorrhagic component to his cellulitis - has bullous lesions, ?secondary infected Chronic LLE edema Hematuria Abnormal LFT Recommendation Change IV Ancef to Penicillin. Edema control Elevation of the left leg emphasized. Monitor progress
[2017-09-30] MEDS: PENICILLIN SODIUM IV.SIG SCH ×2 (17:49→22:21)
[2017-09-30] MEDS: SODIUM CHLOR 0.9% IV.SIG SCH ×2 (17:49→22:21)
[2017-09-30] MEDS: Enoxaparin Inj 40 MG/0.4 ML Syringe SQ SCH (17:50)
[2017-09-30] MEDS: Temazepam 15 MG Capsule PO PRN (22:20)
[2017-10-01] MEDS: PENICILLIN SODIUM IV.SIG SCH ×6 (02:26→22:36)
[2017-10-01] MEDS: SODIUM CHLOR 0.9% IV.SIG SCH ×6 (02:26→22:36)
[2017-10-01 05:44] LABS: Baso # (Auto) 0.1 th/mm3 (0.0-0.2); Baso % (Auto) 0.4 % (0.0-2.0); Eos # (Auto) 0.5 th/mm3 (0.0-0.4); Eos % (Auto) 3.1 % (0.0-4.0); Hematocrit 37.8 % (39.0-51.0); Hemoglobin 12.4 gm/dL (13.0-17.0); Lymph # (Auto) 2.6 th/mm3 (1.0-4.8); Lymph % (Auto) 17.4 % (9.0-44.0); Mean Corpuscular HGB Conc 32.8 % (32.0-36.0); Mean Corpuscular Hemoglobin 28.2 pg (27.0-34.0); Mean Platelet Volume 7.9 fL (7.0-11.0); Mono # (Auto) 0.9 th/mm3 (0.0-0.9); Mono % (Auto) 5.8 % (0.0-8.0); Neut # (Auto) 10.9 th/mm3 (1.8-7.7); Neut % (Auto) 73.3 % (16.0-70.0); Platelet Count 595 th/mm3 (150-450); Red Blood Count 4.39 mil/mm3 (4.50-5.90); Red Cell Distribution Width 13.9 % (11.6-17.2)
[2017-10-01 05:59] LABS: Chloride 103 meq/L (98-107); Potassium 4.3 meq/L (3.5-5.1); Sodium 139 meq/L (136-145)
[2017-10-01 06:04] LABS: Albumin 1.9 g/dL (3.4-5.0); Anion Gap 6 meq/L (5-15); Calcium 8.1 mg/dL (8.5-10.1); Carbon Dioxide 29.6 meq/L (21.0-32.0); Glucose,Random 102 mg/dL (74-106)
[2017-10-01 06:05] LABS: Blood Urea Nitrogen 12 mg/dL (7-18)
[2017-10-01 06:07] LABS: Alanine Aminotransferase 69 U/L (12-78)
[2017-10-01 06:08] LABS: Aspartate Aminotransferase 56 U/L (15-37); Glomerular Filtration Rate Greater Than 89 mL/min (>89)
[2017-10-01 06:09] LABS: Total Protein 6.2 g/dL (6.4-8.2)
[2017-10-01 06:10] LABS: Alkaline Phosphatase 162 U/L (45-117)
--- NOTE | 2017-10-01 06:56 | P.PN ---
Subjective Interval history: Patient has no shortness of breath, chest pain, or abdominal pain. No new complaints. Physical Exam Vital signs: Vital Signs 09/30/17 07:30 09/30/17 08:00 09/30/17 12:00 Temperature 97.0 F L 96.9 F L Pulse Rate 82 84 Respiratory Rate 19 20 Blood Pressure 135/72 134/79 Pulse Oximetry 95 95 96 09/30/17 14:10 09/30/17 16:00 09/30/17 20:00 Temperature 97.6 F 98.4 F Pulse Rate 86 88 Respiratory Rate 18 20 20 Blood Pressure 151/86 H 142/76 H Pulse Oximetry 95 94 L 09/30/17 20:08 10/01/17 00:00 Temperature 96.6 F L Pulse Rate 81 Respiratory Rate 20 Blood Pressure 121/73 Pulse Oximetry 92 L 95 Intake & Output 09/30/17 09/30/17 10/01/17 06:59 18:59 06:59 Intake Total 820 / 820 1110 / 1110 920 / 920 Output Total 600 / 600 800 / 800 Balance 220 / 220 1110 / 1110 120 / 120 Weight 181.1 kg Intake: IV 100 / 100 150 / 150 200 / 200 Penicillin G Sodium Inj 3,000, 100 / 100 200 / 200 000 UNITS In NS Inj 100 ML @ 200 mls/hr IV.SIG Q4H ISAHN Rx#: [id number] Ancef 2 GM Premix Inj 2 gm In 100 / 100 50 / 50 50 ml @ 100 mls/hr IV.SIG Q8H ISHAN Rx#:[id number] Oral 720 / 720 960 / 960 720 / 720 Output: Urine 600 / 600 800 / 800 Other: # Voids 5 Date of Last Bowel Movement 09/29/17 # Bowel Movements 1 Narrative: Exam: This is a pleasant white male in no distress. He is morbidly obese. HEENT: Pupils equal, EOMs intact, mouth without lesions Neck: No JVD, neck is supple Heart: Regular rate and rhythm without murmurs or gallops Lungs: Occasional wheeze Abdomen: Soft, nontender, obese, no masses Extremities: He has swelling of both lower extremities but much more swelling of the left lower extremity. He has just trace swelling of the right ankle and the swelling of the left leg has decreased some but still present. He has a significant cellulitis of the left lower leg that extends from the foot to the knee. It however is not progressing up the leg since he was admitted. Pulses are palpated in the feet. The previous bullous areas with yellow fluid underneath are drying up and scab formation is now beginning to develop. There are some areas where the skin has been denuded. Neuro: Alert, oriented, normal motor exam, sensation intact Results - Labs CBC & Chem 7: 10/01/17 04:57 10/01/17 04:57 Laboratory Results - last 24 hr 10/01/17 10/01/17 04:57 04:57 CBC w Diff Auto diff final WBC 15.0 H RBC 4.39 L Hgb 12.4 L Hct 37.8 L MCV 86.0 MCH 28.2 MCHC 32.8 RDW 13.9 Plt Count 595 H MPV 7.9 Neut % (Auto) 73.3 H Lymph % (Auto) 17.4 [place] % (Auto) 5.8 Eos % (Auto) 3.1 Baso % (Auto) 0.4 Neut # (Auto) 10.9 H Lymph # (Auto) 2.6 [place] # (Auto) 0.9 Eos # (Auto) 0.5 H Baso # (Auto) 0.1 WBC Differential . Differential Comment . Sodium 139 Potassium 4.3 Chloride 103 Carbon Dioxide 29.6 Anion Gap 6 BUN 12 Creatinine 0.83 Estimated GFR Greater than 89 Random Glucose 102 Calcium 8.1 L Total Bilirubin 0.5 AST 56 H ALT 69 Alkaline Phosphatase 162 H Total Protein 6.2 L Albumin 1.9 L Microbiology 09/29/17 11:30 Wound - Leg Gram Stain - Final 09/29/17 11:30 Wound - Leg Wound Culture - Preliminary No growth in 24 hours 09/29/17 11:10 Wound - Leg Gram Stain - Final 09/29/17 11:10 Wound - Leg Wound Culture - Preliminary No growth in 24 hours Laboratory Results - last 48 hr 09/30/17 10/01/17 10/01/17 06:23 04:57 04:57 CBC w Diff Auto diff final Auto diff final WBC 15.2 H 15.0 H RBC 4.42 L 4.39 L Hgb 12.8 L 12.4 L Hct 38.0 L 37.8 L MCV 86.0 86.0 MCH 29.0 28.2 MCHC 33.8 32.8 RDW 14.2 13.9 Plt Count 568 H 595 H MPV 7.9 7.9 Neut % (Auto) 71.6 H 73.3 H Lymph % (Auto) 18.6 17.4 [place] % (Auto) 6.1 5.8 Eos % (Auto) 3.4 3.1 Baso % (Auto) 0.3 0.4 Neut # (Auto) 11.0 H 10.9 H Lymph # (Auto) 2.8 2.6 [place] # (Auto) 0.9 0.9 Eos # (Auto) 0.5 H 0.5 H Baso # (Auto) 0.0 0.1 WBC Differential . . Differential Comment . . Sodium 139 Potassium 4.3 Chloride 103 Carbon Dioxide 29.6 Anion Gap 6 BUN 12 Creatinine 0.83 Estimated GFR Greater than 89 Random Glucose 102 Calcium 8.1 L Total Bilirubin 0.5 AST 56 H ALT 69 Alkaline Phosphatase 162 H Total Protein 6.2 L Albumin 1.9 L - Imaging Venous Doppler Study 09/21/17 14:03 CONCLUSION: 1. Negative for deep venous thrombosis. Abdomen Ultrasound 09/27/17 00:00 CONCLUSION: 1. Cholelithiasis. 2. The liver is slightly echogenic which may be due to fatty infiltration and or hepatocellular dysfunction. Assessment and Plan - Assessment (1) Cellulitis of left lower leg Code(s): L03.116 - Cellulitis of left lower limb Status: Acute (2) Lower extremity edema Code(s): R60.0 - Localized edema Status: Chronic (3) AMINA (obstructive sleep apnea) Code(s): G47.33 - Obstructive sleep apnea (adult) (pediatric) Status: Chronic (4) COPD (chronic obstructive pulmonary disease) Code(s): J44.9 - Chronic obstructive pulmonary disease, unspecified Status: Suspected (5) Elevated liver enzymes Code(s): R74.8 - Abnormal levels of other serum enzymes Status: Chronic (6) Morbid obesity Code(s): E66.01 - Morbid (severe) obesity due to excess calories Status: Chronic (7) Fatty liver Code(s): K76.0 - Fatty (change of) liver, not elsewhere classified Status: Chronic (8) Cholelithiasis Code(s): K80.20 - Calculus of gallbladder without cholecystitis without obstruction Status: Chronic - Plan Plan: Infectious disease changed his IV Ancef to IV PCN yesterday. . Continue Lovenox for DVT prophylaxis. Continue CPAP for sleep apnea. Continue nebulizer treatments as needed for wheezing. Antibiotic treatment as per infectious disease. Wound care also on board. (4) COPD (chronic obstructive pulmonary disease) Qualifiers: COPD type: unspecified COPD Qualified Code(s): J44.9 - Chronic obstructive pulmonary disease, unspecified
--- NOTE | 2017-10-01 16:08 | P.PNID ---
Subjective Remarks: ID coverage: 57-year-old male came in with an acute onset of fever and chills, followed by pain on his left lower extremity from the groin all the way to the foot. When he presented to the hospital he was then noted to have redness on his left leg. No prior history of cellulitis. Has had chronic left lower extremity swelling for years. No trauma. No known problem with athlete's foot. Denies any respiratory complaint. No nausea or vomiting. Has been on IV vancomycin and Ancef. Notes reviewed Feels okay. Tolerating Oxacillin. Temps normal Denies chills. Has dressing on leg with PREM wrap Eating more, appetite better BC negative Antibiotics: Oxacillin 09/30/2017 Lines: No evidence of infection Past Medical History: Lower extremity edema Morbid obesity with BMI of 45.0-49.9, adult AMINA (obstructive sleep apnea) Vascular insufficiency of extremity H/O arthroscopic knee surgery Allergies/Adverse Reactions: Allergies No Known Allergies Allergy (Unknown, Uncoded 09/21/17 13:37) NONE Objective Vital Signs 09/30/17 20:00 09/30/17 20:08 10/01/17 00:00 Temperature 98.4 F 96.6 F L Pulse Rate 88 81 Respiratory Rate 20 20 Blood Pressure 142/76 H 121/73 Pulse Oximetry 94 L 92 L 95 10/01/17 07:50 10/01/17 12:00 10/01/17 15:56 Temperature 97.4 F L 98.7 F 98.6 F Pulse Rate 74 82 80 Respiratory Rate 21 19 21 Blood Pressure 115/67 142/75 H 125/72 Pulse Oximetry 95 95 97 Intake & Output 09/30/17 10/01/17 10/01/17 18:59 06:59 18:59 Intake Total 1110 / 1110 1020 / 1020 580 / 580 Output Total 800 / 800 600 / 600 Balance 1110 / 1110 220 / 220 -20 / -20 Weight 181.1 kg Intake: IV 150 / 150 300 / 300 100 / 100 Penicillin G Sodium Inj 3,000, 100 / 100 300 / 300 100 / 100 000 UNITS In NS Inj 100 ML @ 200 mls/hr IV.SIG Q4H ISHAN Rx#: [id number] Ancef 2 GM Premix Inj 2 gm In 50 / 50 50 ml @ 100 mls/hr IV.SIG Q8H ISHAN Rx#:[id number] Oral 960 / 960 720 / 720 480 / 480 Output: Urine 800 / 800 600 / 600 Other: # Voids 5 Date of Last Bowel Movement 09/29/17 # Bowel Movements 1 09/29/17 11:30 Wound - Leg Gram Stain - Final 09/29/17 11:30 Wound - Leg Wound Culture - Preliminary No growth in 48 hours 09/29/17 11:10 Wound - Leg Gram Stain - Final 09/29/17 11:10 Wound - Leg Wound Culture - Preliminary No growth in 48 hours Lab - Hematology Results 09/30/17 10/01/17 06:23 04:57 CBC w Diff Auto diff final Auto diff final WBC 15.2 H 15.0 H RBC 4.42 L 4.39 L Hgb 12.8 L 12.4 L Hct 38.0 L 37.8 L MCV 86.0 86.0 MCH 29.0 28.2 MCHC 33.8 32.8 RDW 14.2 13.9 Plt Count 568 H 595 H MPV 7.9 7.9 Neut % (Auto) 71.6 H 73.3 H Lymph % (Auto) 18.6 17.4 [place] % (Auto) 6.1 5.8 Eos % (Auto) 3.4 3.1 Baso % (Auto) 0.3 0.4 Neut # (Auto) 11.0 H 10.9 H Lymph # (Auto) 2.8 2.6 [place] # (Auto) 0.9 0.9 Eos # (Auto) 0.5 H 0.5 H Baso # (Auto) 0.0 0.1 WBC Differential . . Differential Comment . . Lab - Chemistry Results 10/01/17 04:57 Sodium 139 Potassium 4.3 Chloride 103 Carbon Dioxide 29.6 Anion Gap 6 BUN 12 Creatinine 0.83 Estimated GFR Greater than 89 Random Glucose 102 Calcium 8.1 L Total Bilirubin 0.5 AST 56 H ALT 69 Alkaline Phosphatase 162 H Total Protein 6.2 L Albumin 1.9 L Imaging: ITS Impressions Venous Doppler Study 09/21/17 14:03 CONCLUSION: 1. Negative for deep venous thrombosis. Abdomen Ultrasound 09/27/17 00:00 CONCLUSION: 1. Cholelithiasis. 2. The liver is slightly echogenic which may be due to fatty infiltration and or hepatocellular dysfunction. Physical Exam: GENERAL: No acute distress. SKIN: Warm and dry. HEAD: Normocephalic. EYES: No scleral icterus. No injection or drainage. NECK: Supple, trachea midline. No JVD or lymphadenopathy. CARDIOVASCULAR: Regular rate and rhythm without murmurs, gallops, or rubs. RESPIRATORY: Breath sounds equal bilaterally. No accessory muscle use. GASTROINTESTINAL: Abdomen soft, non-tender, nondistended. MUSCULOSKELETAL: Left leg has marked swelling. The anterior tibial area is covered by a layer of Membranous orange peel appearance of tissue with dark discoloration and some denuded areas. There is less erythema of the skin above the demarcation line near the knee. The dorsum of the foot has dry erythematous patch of skin. The leg is warm. NEURO: Nonfocal. PSYCH: Calm and cooperative. Assessment and Plan - Plan Impression Sepsis due to LLE cellulitis Acute onset severe cellulitis LLE, clinical presentation typical presentation of Strep. Slow to improve. - fevers and leukocytosis better - has some hemorrhagic component to his cellulitis - has bullous lesions, ?secondary infected Chronic LLE edema Hematuria Abnormal LFT Recommendation Continue Penicillin. Edema control Elevation of the left leg emphasized. Continue to monitor progress
[2017-10-01] MEDS: Enoxaparin Inj 40 MG/0.4 ML Syringe SQ SCH (16:34)
[2017-10-01] MEDS: Temazepam 15 MG Capsule PO PRN (22:36)
[2017-10-02] MEDS: PENICILLIN SODIUM IV.SIG SCH ×6 (02:34→21:14)
[2017-10-02] MEDS: SODIUM CHLOR 0.9% IV.SIG SCH ×6 (02:34→21:14)
[2017-10-02 06:32] LABS: Baso % (Auto) 0.3 % (0.0-2.0); Eos # (Auto) 0.4 th/mm3 (0.0-0.4); Eos % (Auto) 2.9 % (0.0-4.0); Hemoglobin 11.2 gm/dL (13.0-17.0); Lymph # (Auto) 2.5 th/mm3 (1.0-4.8); Lymph % (Auto) 19.7 % (9.0-44.0); Mean Corpuscular HGB Conc 32.9 % (32.0-36.0); Mean Corpuscular Hemoglobin 28.2 pg (27.0-34.0); Mean Corpuscular Volume 85.7 fL (80.0-100.0); Mean Platelet Volume 7.9 fL (7.0-11.0); Mono # (Auto) 0.9 th/mm3 (0.0-0.9); Neut # (Auto) 8.8 th/mm3 (1.8-7.7); Neut % (Auto) 70.1 % (16.0-70.0); Platelet Count 565 th/mm3 (150-450); Red Blood Count 3.97 mil/mm3 (4.50-5.90); Red Cell Distribution Width 13.7 % (11.6-17.2); White Blood Count 12.6 th/mm3 (4.0-11.0)
[2017-10-02 06:40] LABS: Chloride 101 meq/L (98-107); Potassium 4.3 meq/L (3.5-5.1); Sodium 137 meq/L (136-145)
[2017-10-02 06:48] LABS: Anion Gap 7 meq/L (5-15); Carbon Dioxide 29.5 meq/L (21.0-32.0); Glucose,Random 97 mg/dL (74-106)
[2017-10-02 06:49] LABS: Blood Urea Nitrogen 11 mg/dL (7-18)
[2017-10-02 06:52] LABS: Glomerular Filtration Rate Greater Than 89 mL/min (>89)
--- NOTE | 2017-10-02 07:32 | P.PN ---
Subjective Interval history: No new complaints. Physical Exam Vital signs: Vital Signs 10/01/17 07:50 10/01/17 12:00 10/01/17 15:56 Temperature 97.4 F L 98.7 F 98.6 F Pulse Rate 74 82 80 Respiratory Rate 21 19 21 Blood Pressure 115/67 142/75 H 125/72 Pulse Oximetry 95 95 97 10/01/17 20:00 10/01/17 20:20 10/02/17 00:00 Temperature 98.2 F 98.8 F Pulse Rate 84 84 Respiratory Rate 20 0 L 18 Blood Pressure 125/64 121/59 L Pulse Oximetry 95 93 L Intake & Output 10/01/17 10/02/17 10/02/17 18:59 06:59 18:59 Intake Total 680 / 680 620 / 620 Output Total 600 / 600 350 / 350 Balance 80 / 80 270 / 270 Intake: IV 200 / 200 400 / 400 Penicillin G Sodium Inj 3,000, 200 / 200 400 / 400 000 UNITS In NS Inj 100 ML @ 200 mls/hr IV.SIG Q4H ISHAN Rx#: [id number] Oral 480 / 480 220 / 220 Output: Urine 600 / 600 350 / 350 Other: Date of Last Bowel Movement 09/29/17 10/01/17 Narrative: Exam: This is a pleasant white male in no distress. He is morbidly obese. HEENT: Pupils equal, EOMs intact, mouth without lesions Neck: No JVD, neck is supple Heart: Regular rate and rhythm without murmurs or gallops Lungs: Clear Abdomen: Soft, nontender, obese, no masses Extremities: He has swelling of both lower extremities but much more swelling of the left lower extremity. He has just trace swelling of the right ankle and the swelling of the left leg has decreased some but still present. He has a significant cellulitis of the left lower leg that extends from the foot to the knee. It however is not progressing up the leg since he was admitted. Pulses are palpated in the feet. The previous bullous areas with yellow fluid underneath are drying up and scab formation is now beginning to develop. There are some areas where the skin has been denuded. Neuro: Alert, oriented, normal motor exam, sensation intact Results - Labs CBC & Chem 7: 10/02/17 05:52 10/02/17 05:52 Laboratory Results - last 24 hr 10/02/17 10/02/17 05:52 05:52 CBC w Diff Auto diff final WBC 12.6 H RBC 3.97 L Hgb 11.2 L Hct 34.0 L MCV 85.7 MCH 28.2 MCHC 32.9 RDW 13.7 Plt Count 565 H MPV 7.9 Neut % (Auto) 70.1 H Lymph % (Auto) 19.7 [place] % (Auto) 7.0 Eos % (Auto) 2.9 Baso % (Auto) 0.3 Neut # (Auto) 8.8 H Lymph # (Auto) 2.5 [place] # (Auto) 0.9 Eos # (Auto) 0.4 Baso # (Auto) 0.0 WBC Differential . Differential Comment . Sodium 137 Potassium 4.3 Chloride 101 Carbon Dioxide 29.5 Anion Gap 7 BUN 11 Creatinine 0.70 Estimated GFR Greater than 89 Random Glucose 97 Calcium 8.0 L Microbiology 09/29/17 11:30 Wound - Leg Gram Stain - Final 09/29/17 11:30 Wound - Leg Wound Culture - Preliminary No growth in 48 hours 09/29/17 11:10 Wound - Leg Gram Stain - Final 09/29/17 11:10 Wound - Leg Wound Culture - Preliminary No growth in 48 hours Laboratory Results - last 48 hr 10/01/17 10/01/17 10/02/17 04:57 04:57 05:52 CBC w Diff Auto diff final Auto diff final WBC 15.0 H 12.6 H RBC 4.39 L 3.97 L Hgb 12.4 L 11.2 L Hct 37.8 L 34.0 L MCV 86.0 85.7 MCH 28.2 28.2 MCHC 32.8 32.9 RDW 13.9 13.7 Plt Count 595 H 565 H MPV 7.9 7.9 Neut % (Auto) 73.3 H 70.1 H Lymph % (Auto) 17.4 19.7 [place] % (Auto) 5.8 7.0 Eos % (Auto) 3.1 2.9 Baso % (Auto) 0.4 0.3 Neut # (Auto) 10.9 H 8.8 H Lymph # (Auto) 2.6 2.5 [place] # (Auto) 0.9 0.9 Eos # (Auto) 0.5 H 0.4 Baso # (Auto) 0.1 0.0 WBC Differential . . Differential Comment . . Sodium 139 Potassium 4.3 Chloride 103 Carbon Dioxide 29.6 Anion Gap 6 BUN 12 Creatinine 0.83 Estimated GFR Greater than 89 Random Glucose 102 Calcium 8.1 L Total Bilirubin 0.5 AST 56 H ALT 69 Alkaline Phosphatase 162 H Total Protein 6.2 L Albumin 1.9 L 10/02/17 05:52 CBC w Diff WBC RBC Hgb Hct MCV MCH MCHC RDW Plt Count MPV Neut % (Auto) Lymph % (Auto) [place] % (Auto) Eos % (Auto) Baso % (Auto) Neut # (Auto) Lymph # (Auto) [place] # (Auto) Eos # (Auto) Baso # (Auto) WBC Differential Differential Comment Sodium 137 Potassium 4.3 Chloride 101 Carbon Dioxide 29.5 Anion Gap 7 BUN 11 Creatinine 0.70 Estimated GFR Greater than 89 Random Glucose 97 Calcium 8.0 L Total Bilirubin AST ALT Alkaline Phosphatase Total Protein Albumin - Imaging Venous Doppler Study 09/21/17 14:03 CONCLUSION: 1. Negative for deep venous thrombosis. Abdomen Ultrasound 09/27/17 00:00 CONCLUSION: 1. Cholelithiasis. 2. The liver is slightly echogenic which may be due to fatty infiltration and or hepatocellular dysfunction. Assessment and Plan - Assessment (1) Cellulitis of left lower leg Code(s): L03.116 - Cellulitis of left lower limb Status: Acute (2) Lower extremity edema Code(s): R60.0 - Localized edema Status: Chronic (3) AMINA (obstructive sleep apnea) Code(s): G47.33 - Obstructive sleep apnea (adult) (pediatric) Status: Chronic (4) COPD (chronic obstructive pulmonary disease) Code(s): J44.9 - Chronic obstructive pulmonary disease, unspecified Status: Suspected (5) Elevated liver enzymes Code(s): R74.8 - Abnormal levels of other serum enzymes Status: Chronic (6) Morbid obesity Code(s): E66.01 - Morbid (severe) obesity due to excess calories Status: Chronic (7) Fatty liver Code(s): K76.0 - Fatty (change of) liver, not elsewhere classified Status: Chronic (8) Cholelithiasis Code(s): K80.20 - Calculus of gallbladder without cholecystitis without obstruction Status: Chronic - Plan Plan: Continue IV PCN on 09-30-17.. . Continue Lovenox for DVT prophylaxis. Continue CPAP for sleep apnea. Continue nebulizer treatments as needed for wheezing. Antibiotic treatment as per infectious disease. Wound care also on board. (4) COPD (chronic obstructive pulmonary disease) Qualifiers: COPD type: unspecified COPD Qualified Code(s): J44.9 - Chronic obstructive pulmonary disease, unspecified
--- NOTE | 2017-10-02 15:44 | P.PNID ---
Subjective Remarks: ID coverage: 57-year-old male came in with an acute onset of fever and chills, followed by pain on his left lower extremity from the groin all the way to the foot. When he presented to the hospital he was then noted to have redness on his left leg. No prior history of cellulitis. Has had chronic left lower extremity swelling for years. No trauma. No known problem with athlete's foot. Denies any respiratory complaint. No nausea or vomiting. Has been on IV vancomycin. ID started Ancef 09/22. Notes reviewed Feels okay. Afebrile. Denies chills. Has new blister formation at the anterior tibia. Erythema persist the lateral thigh above the knee. Antibiotics: Penicillin 09/30/2017 Lines: No evidence of infection Past Medical History: Lower extremity edema Morbid obesity with BMI of 45.0-49.9, adult AMINA (obstructive sleep apnea) Vascular insufficiency of extremity H/O arthroscopic knee surgery Allergies/Adverse Reactions: Allergies No Known Allergies Allergy (Unknown, Uncoded 09/21/17 13:37) NONE Objective Vital Signs 10/01/17 15:56 10/01/17 20:00 10/01/17 20:20 Temperature 98.6 F 98.2 F Pulse Rate 80 84 Respiratory Rate 21 20 0 L Blood Pressure 125/72 125/64 Pulse Oximetry 97 95 10/02/17 00:00 10/02/17 07:30 10/02/17 08:00 Temperature 98.8 F 96.5 F L Pulse Rate 84 82 Respiratory Rate 18 20 Blood Pressure 121/59 L 132/79 Pulse Oximetry 93 L 92 L 93 L 10/02/17 12:00 Temperature 98.3 F Pulse Rate 81 Respiratory Rate 20 Blood Pressure 126/79 Pulse Oximetry 93 L Intake & Output 10/01/17 10/02/17 10/02/17 18:59 06:59 18:59 Intake Total 680 / 680 620 / 620 100 / 100 Output Total 600 / 600 350 / 350 Balance 80 / 80 270 / 270 100 / 100 Intake: IV 200 / 200 400 / 400 100 / 100 Penicillin G Sodium Inj 3,000, 200 / 200 400 / 400 100 / 100 000 UNITS In NS Inj 100 ML @ 200 mls/hr IV.SIG Q4H [facility] Rx#: [id number] Oral 480 / 480 220 / 220 Output: Urine 600 / 600 350 / 350 Other: Date of Last Bowel Movement 09/29/17 10/01/17 10/02/17 09/29/17 11:30 Wound - Leg Gram Stain - Final 09/29/17 11:30 Wound - Leg Wound Culture - Final No growth in 72 hours (aerobically and anaerobically ) 09/29/17 11:10 Wound - Leg Gram Stain - Final 09/29/17 11:10 Wound - Leg Wound Culture - Final No growth in 72 hours (aerobically and anaerobically ) Lab - Hematology Results 10/01/17 10/02/17 04:57 05:52 CBC w Diff Auto diff final Auto diff final WBC 15.0 H 12.6 H RBC 4.39 L 3.97 L Hgb 12.4 L 11.2 L Hct 37.8 L 34.0 L MCV 86.0 85.7 MCH 28.2 28.2 MCHC 32.8 32.9 RDW 13.9 13.7 Plt Count 595 H 565 H MPV 7.9 7.9 Neut % (Auto) 73.3 H 70.1 H Lymph % (Auto) 17.4 19.7 [place] % (Auto) 5.8 7.0 Eos % (Auto) 3.1 2.9 Baso % (Auto) 0.4 0.3 Neut # (Auto) 10.9 H 8.8 H Lymph # (Auto) 2.6 2.5 [place] # (Auto) 0.9 0.9 Eos # (Auto) 0.5 H 0.4 Baso # (Auto) 0.1 0.0 WBC Differential . . Differential Comment . . Lab - Chemistry Results 10/01/17 10/02/17 04:57 05:52 Sodium 139 137 Potassium 4.3 4.3 Chloride 103 101 Carbon Dioxide 29.6 29.5 Anion Gap 6 7 BUN 12 11 Creatinine 0.83 0.70 Estimated GFR Greater than 89 Greater than 89 Random Glucose 102 97 Calcium 8.1 L 8.0 L Total Bilirubin 0.5 AST 56 H ALT 69 Alkaline Phosphatase 162 H Total Protein 6.2 L Albumin 1.9 L Imaging: ITS Impressions Venous Doppler Study 09/21/17 14:03 CONCLUSION: 1. Negative for deep venous thrombosis. Abdomen Ultrasound 09/27/17 00:00 CONCLUSION: 1. Cholelithiasis. 2. The liver is slightly echogenic which may be due to fatty infiltration and or hepatocellular dysfunction. Physical Exam: GENERAL: SKIN: Warm and dry. HEAD: Normocephalic. EYES: No scleral icterus. No injection or drainage. NECK: Supple, trachea midline. No JVD or lymphadenopathy. CARDIOVASCULAR: Regular rate and rhythm without murmurs, gallops, or rubs. RESPIRATORY: Breath sounds equal bilaterally. No accessory muscle use. GASTROINTESTINAL: Abdomen soft, non-tender, nondistended. MUSCULOSKELETAL: Left leg still has marked swelling and weeping of serous drainage. The anterior tibial area is covered by a layer of Membranous orange peel appearance of tissue with dark discoloration and some denuded areas. Bullae formation At the lateral tibia. There is erythema of the skin above the knee and the proximal thigh laterally. The dorsum of the foot has dry erythematous patch of skin. The leg is warm. NEURO: Nonfocal. PSYCH: Calm and cooperative. Assessment and Plan - Plan Impression Sepsis due to LLE cellulitis Severe left lower extremity cellulitis. Slow to improve. Acute onset severe cellulitis LLE, clinical presentation typical presentation of Strep. Slow to improve. - fevers and leukocytosis better - has some hemorrhagic component to his cellulitis - has bullous lesions, ?secondary infected Chronic LLE edema Hematuria Abnormal LFT Slow to improve. Recommendation Continue Penicillin intravenous. Continue to elevate the left leg. Monitor response to antibiotics.
[2017-10-02] MEDS: Enoxaparin Inj 40 MG/0.4 ML Syringe SQ SCH (16:49)
[2017-10-02] MEDS: Temazepam 15 MG Capsule PO PRN (21:14)
[2017-10-03] MEDS: PENICILLIN SODIUM IV.SIG SCH ×5 (01:14→17:07)
[2017-10-03] MEDS: SODIUM CHLOR 0.9% IV.SIG SCH ×5 (01:14→17:07)
--- NOTE | 2017-10-03 06:25 | P.PN ---
Subjective Interval history: No shortness of breath. No abdominal pain. No complaints. Physical Exam Vital signs: Vital Signs 10/02/17 07:30 10/02/17 08:00 10/02/17 12:00 Temperature 96.5 F L 98.3 F Pulse Rate 82 81 Respiratory Rate 20 20 Blood Pressure 132/79 126/79 Pulse Oximetry 92 L 93 L 93 L 10/02/17 16:00 10/02/17 20:00 10/03/17 00:00 Temperature 96.6 F L 99.1 F 97.8 F Pulse Rate 89 87 90 Respiratory Rate 20 18 18 Blood Pressure 165/91 H 140/72 125/70 Pulse Oximetry 94 L 93 L 93 L Intake & Output 10/02/17 10/02/17 10/03/17 06:59 18:59 06:59 Intake Total 620 / 620 1680 / 1680 440 / 440 Output Total 350 / 350 300 / 300 Balance 270 / 270 1680 / 1680 140 / 140 Weight 183.5 kg Intake: IV 400 / 400 300 / 300 200 / 200 Penicillin G Sodium Inj 3,000, 400 / 400 300 / 300 200 / 200 000 UNITS In NS Inj 100 ML @ 200 mls/hr IV.SIG Q4H [facility] Rx#: [id number] Oral 220 / 220 1380 / 1380 240 / 240 Output: Urine 350 / 350 300 / 300 Other: # Voids 2 Date of Last Bowel Movement 10/01/17 10/02/17 10/02/17 Narrative: Exam: This is a pleasant white male in no distress. He is morbidly obese. HEENT: Pupils equal, EOMs intact, mouth without lesions Neck: No JVD, neck is supple Heart: Regular rate and rhythm without murmurs or gallops Lungs: Clear Abdomen: Soft, nontender, obese, no masses Extremities: He has swelling of both lower extremities but much more swelling of the left lower extremity. He has just trace swelling of the right ankle and the swelling of the left leg has decreased some but still present. He has a significant cellulitis of the left lower leg that extends from the foot to the knee. It however is not progressing up the leg since he was admitted. Pulses are palpated in the feet. The previous bullous areas with yellow fluid underneath are drying up and scab formation is now beginning to develop. There are some areas where the skin has been denuded. Neuro: Alert, oriented, normal motor exam, sensation intact Results - Labs CBC & Chem 7: 10/02/17 05:52 10/02/17 05:52 Laboratory Results - last 24 hr 10/02/17 10/02/17 05:52 05:52 CBC w Diff Auto diff final WBC 12.6 H RBC 3.97 L Hgb 11.2 L Hct 34.0 L MCV 85.7 MCH 28.2 MCHC 32.9 RDW 13.7 Plt Count 565 H MPV 7.9 Neut % (Auto) 70.1 H Lymph % (Auto) 19.7 [place] % (Auto) 7.0 Eos % (Auto) 2.9 Baso % (Auto) 0.3 Neut # (Auto) 8.8 H Lymph # (Auto) 2.5 [place] # (Auto) 0.9 Eos # (Auto) 0.4 Baso # (Auto) 0.0 WBC Differential . Differential Comment . Sodium 137 Potassium 4.3 Chloride 101 Carbon Dioxide 29.5 Anion Gap 7 BUN 11 Creatinine 0.70 Estimated GFR Greater than 89 Random Glucose 97 Calcium 8.0 L Microbiology 09/29/17 11:30 Wound - Leg Gram Stain - Final 09/29/17 11:30 Wound - Leg Wound Culture - Final No growth in 72 hours (aerobically and anaerobically ) 09/29/17 11:10 Wound - Leg Gram Stain - Final 09/29/17 11:10 Wound - Leg Wound Culture - Final No growth in 72 hours (aerobically and anaerobically ) lab today pending. - Imaging Venous Doppler Study 09/21/17 14:03 CONCLUSION: 1. Negative for deep venous thrombosis. Abdomen Ultrasound 09/27/17 00:00 CONCLUSION: 1. Cholelithiasis. 2. The liver is slightly echogenic which may be due to fatty infiltration and or hepatocellular dysfunction. Assessment and Plan - Assessment (1) Cellulitis of left lower leg Code(s): L03.116 - Cellulitis of left lower limb Status: Acute Plan: (2) Lower extremity edema Code(s): R60.0 - Localized edema Status: Chronic (3) AMINA (obstructive sleep apnea) Code(s): G47.33 - Obstructive sleep apnea (adult) (pediatric) Status: Chronic (4) COPD (chronic obstructive pulmonary disease) Code(s): J44.9 - Chronic obstructive pulmonary disease, unspecified Status: Suspected (5) Elevated liver enzymes Code(s): R74.8 - Abnormal levels of other serum enzymes Status: Chronic (6) Morbid obesity Code(s): E66.01 - Morbid (severe) obesity due to excess calories Status: Chronic (7) Fatty liver Code(s): K76.0 - Fatty (change of) liver, not elsewhere classified Status: Chronic (8) Cholelithiasis Code(s): K80.20 - Calculus of gallbladder without cholecystitis without obstruction Status: Chronic - Plan Plan: Continue IV PCN. Continue Lovenox for DVT prophylaxis. Continue CPAP for sleep apnea. Continue nebulizer treatments as needed for wheezing. Antibiotic treatment as per infectious disease. Wound care also on board. (4) COPD (chronic obstructive pulmonary disease) Qualifiers: COPD type: unspecified COPD Qualified Code(s): J44.9 - Chronic obstructive pulmonary disease, unspecified
[2017-10-03 07:36] LABS: Baso # (Auto) 0.1 th/mm3 (0.0-0.2); Baso % (Auto) 0.5 % (0.0-2.0); Eos # (Auto) 0.3 th/mm3 (0.0-0.4); Eos % (Auto) 2.5 % (0.0-4.0); Hemoglobin 11.9 gm/dL (13.0-17.0); Lymph # (Auto) 2.6 th/mm3 (1.0-4.8); Lymph % (Auto) 21.3 % (9.0-44.0); Mean Corpuscular HGB Conc 33.1 % (32.0-36.0); Mean Corpuscular Hemoglobin 28.3 pg (27.0-34.0); Mean Corpuscular Volume 85.5 fL (80.0-100.0); Mono % (Auto) 8.3 % (0.0-8.0); Neut # (Auto) 8.1 th/mm3 (1.8-7.7); Neut % (Auto) 67.4 % (16.0-70.0); Platelet Count 640 th/mm3 (150-450); Red Blood Count 4.21 mil/mm3 (4.50-5.90); White Blood Count 12.1 th/mm3 (4.0-11.0)
[2017-10-03 09:17] VITALS: TEMP 96.9
[2017-10-03] MEDS: Enoxaparin Inj 40 MG/0.4 ML Syringe SQ SCH (16:49)
[2017-10-03] MEDS: Furosemide 40 MG Tablet PO SCH (16:49)
[2017-10-03] MEDS: SODIUM CHLORIDE 0.9% IV.SIG SCH (22:01)
[2017-10-03] MEDS: PENICILLIN POTASSIUM IV.SIG SCH (22:01)
[2017-10-03] MEDS: Temazepam 15 MG Capsule PO PRN (22:01)
[2017-10-04] MEDS: SODIUM CHLORIDE 0.9% IV.SIG SCH ×6 (01:28→22:47)
[2017-10-04] MEDS: PENICILLIN POTASSIUM IV.SIG SCH ×6 (01:28→22:47)
--- NOTE | 2017-10-04 07:06 | P.PN ---
Subjective Interval history: Patient reports that the leg is slowly improving. We are asked to review pictures of the left leg with dressing removed from the last 3 days. Edema and signs Eschar formation improving. Patient has been walking to the restroom independently but otherwise keeping left lower extremity elevated. Physical Exam Vital signs: Vital Signs 10/03/17 07:36 10/03/17 08:00 10/03/17 12:00 Temperature 96.9 F L 98.4 F Pulse Rate 82 87 Respiratory Rate 18 18 Blood Pressure 127/73 147/86 H Pulse Oximetry 93 L 96 95 10/03/17 16:00 10/03/17 20:00 10/03/17 22:15 Temperature 98.1 F 98.2 F Pulse Rate 88 88 Respiratory Rate 18 18 Blood Pressure 146/78 H 148/78 H Pulse Oximetry 96 96 95 10/04/17 00:00 Temperature 98.0 F Pulse Rate 91 H Respiratory Rate 18 Blood Pressure 139/78 Pulse Oximetry 93 L Intake & Output 10/03/17 10/03/17 10/04/17 06:59 18:59 06:59 Intake Total 440 / 440 1220 / 1220 200 / 200 Output Total 300 / 300 200 / 200 Balance 140 / 140 1020 / 1020 200 / 200 Weight 183.5 kg 179.7 kg Intake: IV 200 / 200 300 / 300 200 / 200 Pfizerpen-G Inj 3,000,000 UNIT 200 / 200 In NS Inj 100 ML @ 200 mls/hr IV.SIG Q4H [facility] Rx#:[id number] Penicillin G Sodium Inj 3,000, 200 / 200 300 / 300 000 UNITS In NS Inj 100 ML @ 200 mls/hr IV.SIG Q4H [facility] Rx#: [id number] Oral 240 / 240 920 / 920 Output: Urine 300 / 300 200 / 200 Other: # Voids 2 Date of Last Bowel Movement 10/02/17 10/02/17 # Bowel Movements 1 Narrative: Exam: This is a pleasant white male in no distress. He is morbidly obese. HEENT: Pupils equal, EOMs intact, mouth without lesions Neck: No JVD, neck is supple Heart: Regular rate and rhythm without murmurs or gallops Lungs: Clear to auscultation, no wheeze or crackle. Abdomen: Soft, nontender, obese, no masses. Bowel sounds normal. Extremities: Bilateral lower extremity edema/lymphedema noted. Left lower extremity with worse edema than right but both much improved from previous per patient and per review of exam history. He has a significant cellulitis of the left lower leg that extends from the foot to the knee. Pulses are palpated in the feet. The previous bullous areas with yellow fluid underneath have dried and eschar formation is noted. There are some areas where the skin has been denuded. Neuro: Alert, oriented, normal motor exam, sensation intact Results - Labs CBC & Chem 7: 10/03/17 06:20 10/02/17 05:52 Laboratory Results - last 24 hr 10/03/17 06:20 CBC w Diff Auto diff final WBC 12.1 H RBC 4.21 L Hgb 11.9 L Hct 36.0 L MCV 85.5 MCH 28.3 MCHC 33.1 RDW 14.0 Plt Count 640 H MPV 8.0 Neut % (Auto) 67.4 Lymph % (Auto) 21.3 [place] % (Auto) 8.3 H Eos % (Auto) 2.5 Baso % (Auto) 0.5 Neut # (Auto) 8.1 H Lymph # (Auto) 2.6 [place] # (Auto) 1.0 H Eos # (Auto) 0.3 Baso # (Auto) 0.1 WBC Differential . Differential Comment . Assessment and Plan - Assessment (1) Cellulitis of left lower leg Code(s): L03.116 - Cellulitis of left lower limb Status: Acute Plan: Clinically much improved. Appreciate ID input. Continue current medication and hopefully can convert to oral antibiotics the next day or so with plan to discharge thereafter. He has good social support at home. (2) Lower extremity edema Code(s): R60.0 - Localized edema Status: Chronic Plan: states his primary has done extensive work up as outpatient. Continue current diuretic as he does not want higher dose due to increased urinary frequency. Continue elevation of lower extremities. Continue DVT prophylaxis due to prolonged immobility. (3) AMINA (obstructive sleep apnea) Code(s): G47.33 - Obstructive sleep apnea (adult) (pediatric) Status: Chronic Plan: continue cpap (4) COPD (chronic obstructive pulmonary disease) Code(s): J44.9 - Chronic obstructive pulmonary disease, unspecified Status: Suspected Plan: will continue on oxygen. Oxygen saturations and respiratory symptoms doing well with ventolin inhaler Strongly encouraged tobacco cessation. He is using NicoDerm patch presently. (5) Elevated liver enzymes Code(s): R74.8 - Abnormal levels of other serum enzymes Status: Chronic (6) Morbid obesity Code(s): E66.01 - Morbid (severe) obesity due to excess calories Status: Chronic Plan: Strongly encourage weight loss. - Plan Code Status: Full (4) COPD (chronic obstructive pulmonary disease) Qualifiers: COPD type: unspecified COPD Qualified Code(s): J44.9 - Chronic obstructive pulmonary disease, unspecified
[2017-10-04 08:15] LABS: Baso % (Auto) 0.4 % (0.0-2.0); Eos # (Auto) 0.3 th/mm3 (0.0-0.4); Eos % (Auto) 2.2 % (0.0-4.0); Hematocrit 34.1 % (39.0-51.0); Hemoglobin 11.7 gm/dL (13.0-17.0); Lymph # (Auto) 2.5 th/mm3 (1.0-4.8); Lymph % (Auto) 21.5 % (9.0-44.0); Mean Corpuscular HGB Conc 34.3 % (32.0-36.0); Mean Corpuscular Hemoglobin 28.6 pg (27.0-34.0); Mean Corpuscular Volume 83.3 fL (80.0-100.0); Mean Platelet Volume 8.1 fL (7.0-11.0); Mono # (Auto) 0.8 th/mm3 (0.0-0.9); Mono % (Auto) 6.8 % (0.0-8.0); Neut # (Auto) 8.2 th/mm3 (1.8-7.7); Neut % (Auto) 69.1 % (16.0-70.0); Platelet Count 613 th/mm3 (150-450); Red Cell Distribution Width 14.2 % (11.6-17.2); White Blood Count 11.9 th/mm3 (4.0-11.0)
[2017-10-04] MEDS: Furosemide 40 MG Tablet PO SCH (08:15)
[2017-10-04 08:39] LABS: Chloride 101 meq/L (98-107); Potassium 4.2 meq/L (3.5-5.1); Sodium 138 meq/L (136-145)
[2017-10-04 08:43] LABS: Calcium 8.4 mg/dL (8.5-10.1)
[2017-10-04 08:44] LABS: Anion Gap 7 meq/L (5-15); Blood Urea Nitrogen 11 mg/dL (7-18); Carbon Dioxide 30.3 meq/L (21.0-32.0); Glucose,Random 97 mg/dL (74-106)
[2017-10-04 08:47] LABS: Glomerular Filtration Rate Greater Than 89 mL/min (>89)
[2017-10-04] MEDS: Enoxaparin Inj 40 MG/0.4 ML Syringe SQ SCH (16:17)
--- NOTE | 2017-10-04 16:54 | P.PNID ---
Subjective Remarks: ID coverage: 57-year-old male came in with an acute onset of fever and chills, followed by pain on his left lower extremity from the groin all the way to the foot. When he presented to the hospital he was then noted to have redness on his left leg. No prior history of cellulitis. Has had chronic left lower extremity swelling for years. No trauma. No known problem with athlete's foot. Denies any respiratory complaint. No nausea or vomiting. Has been on IV vancomycin. ID started Ancef 09/22. Penicillin started 09/30. Feels okay. Says he has less pain in the left leg. Pain occurs when he stands up. Afebrile. Denies chills. Has new blister formation at the anterior tibia. Erythema at the area above the knee posteriorly has improved. Antibiotics: Penicillin 09/30/2017 Lines: No evidence of infection Past Medical History: Lower extremity edema Morbid obesity with BMI of 45.0-49.9, adult AMINA (obstructive sleep apnea) Vascular insufficiency of extremity H/O arthroscopic knee surgery Allergies/Adverse Reactions: Allergies No Known Allergies Allergy (Unknown, Uncoded 09/21/17 13:37) NONE Objective Vital Signs 10/03/17 20:00 10/03/17 22:15 10/04/17 00:00 Temperature 98.2 F 98.0 F Pulse Rate 88 91 H Respiratory Rate 18 18 Blood Pressure 148/78 H 139/78 Pulse Oximetry 96 95 93 L 10/04/17 08:00 10/04/17 12:00 Temperature 97.7 F 98.3 F Pulse Rate 87 86 Respiratory Rate 18 18 Blood Pressure 142/78 H 138/75 Pulse Oximetry 93 L 96 Intake & Output 10/03/17 10/04/17 10/04/17 18:59 06:59 18:59 Intake Total 1220 / 1220 200 / 200 300 / 300 Output Total 200 / 200 Balance 1020 / 1020 200 / 200 300 / 300 Weight 179.7 kg Intake: IV 300 / 300 200 / 200 300 / 300 Pfizerpen-G Inj 3,000,000 UNIT 200 / 200 300 / 300 In NS Inj 100 ML @ 200 mls/hr IV.SIG Q4H [facility] Rx#:[id number] Penicillin G Sodium Inj 3,000, 300 / 300 000 UNITS In NS Inj 100 ML @ 200 mls/hr IV.SIG Q4H [facility] Rx#: [id number] Oral 920 / 920 Output: Urine 200 / 200 Other: # Voids 2 Date of Last Bowel Movement 10/02/17 # Bowel Movements 1 09/29/17 11:30 Wound - Leg Gram Stain - Final 09/29/17 11:30 Wound - Leg Wound Culture - Final No growth in 72 hours (aerobically and anaerobically ) 09/29/17 11:10 Wound - Leg Gram Stain - Final 09/29/17 11:10 Wound - Leg Wound Culture - Final No growth in 72 hours (aerobically and anaerobically ) Lab - Hematology Results 10/03/17 10/04/17 06:20 07:00 CBC w Diff Auto diff final Auto diff final WBC 12.1 H 11.9 H RBC 4.21 L 4.10 L Hgb 11.9 L 11.7 L Hct 36.0 L 34.1 L MCV 85.5 83.3 MCH 28.3 28.6 MCHC 33.1 34.3 RDW 14.0 14.2 Plt Count 640 H 613 H MPV 8.0 8.1 Neut % (Auto) 67.4 69.1 Lymph % (Auto) 21.3 21.5 [place] % (Auto) 8.3 H 6.8 Eos % (Auto) 2.5 2.2 Baso % (Auto) 0.5 0.4 Neut # (Auto) 8.1 H 8.2 H Lymph # (Auto) 2.6 2.5 [place] # (Auto) 1.0 H 0.8 Eos # (Auto) 0.3 0.3 Baso # (Auto) 0.1 0.0 WBC Differential . . Differential Comment . . Lab - Chemistry Results 10/04/17 07:00 Sodium 138 Potassium 4.2 Chloride 101 Carbon Dioxide 30.3 Anion Gap 7 BUN 11 Creatinine 0.82 Estimated GFR Greater than 89 Random Glucose 97 Calcium 8.4 L Imaging: ITS Impressions Venous Doppler Study 09/21/17 14:03 CONCLUSION: 1. Negative for deep venous thrombosis. Abdomen Ultrasound 09/27/17 00:00 CONCLUSION: 1. Cholelithiasis. 2. The liver is slightly echogenic which may be due to fatty infiltration and or hepatocellular dysfunction. Physical Exam: GENERAL: SKIN: Warm and dry. HEAD: Normocephalic. EYES: No scleral icterus. No injection or drainage. NECK: Supple, trachea midline. No JVD or lymphadenopathy. CARDIOVASCULAR: Regular rate and rhythm without murmurs, gallops, or rubs. RESPIRATORY: Breath sounds equal bilaterally. No accessory muscle use. GASTROINTESTINAL: Abdomen soft, non-tender, nondistended. MUSCULOSKELETAL: Left leg still has marked swelling but is drying up. Erythema is improving. The anterior tibial area is covered by a layer of Membranous orange peel appearance of tissue with dark discoloration. Bullae formation At the anterior tibia. The erythema of the skin above the knee is now only barely visible. The dorsum of the foot has dry erythematous patch of skin. The leg is warm. NEURO: Nonfocal. PSYCH: Calm and cooperative. Assessment and Plan - Plan Impression Sepsis due to LLE cellulitis Severe left lower extremity cellulitis. Improving. Acute onset severe cellulitis LLE, clinical presentation typical presentation of Strep. Slow to improve. - fevers and leukocytosis better - has some hemorrhagic component to his cellulitis - has bullous lesions, ?secondary infected Chronic LLE edema Hematuria Abnormal LFT Recommendation Continue Penicillin IV. Continue to elevate the left leg. I anticipate IV antibiotic in the next 2 days and then switched to oral.
[2017-10-05] MEDS: PENICILLIN POTASSIUM IV.SIG SCH ×2 (02:26→06:11)
[2017-10-05] MEDS: SODIUM CHLORIDE 0.9% IV.SIG SCH ×2 (02:26→06:11)
--- NOTE | 2017-10-05 06:48 | P.PN ---
Subjective Interval history: Slowly improving. Patient is becoming somewhat eager to go home. I told him hopefully we can convert him to oral antibiotics and get him out in the next 1- 2 days. Physical Exam Vital signs: Vital Signs 10/04/17 08:00 10/04/17 12:00 10/04/17 16:00 Temperature 97.7 F 98.3 F 98.6 F Pulse Rate 87 86 90 Respiratory Rate 18 18 18 Blood Pressure 142/78 H 138/75 148/78 H Pulse Oximetry 93 L 96 96 10/04/17 20:00 10/04/17 22:35 10/05/17 00:00 Temperature 98.1 F 98.4 F Pulse Rate 89 89 Respiratory Rate 20 20 Blood Pressure 146/75 H 130/72 Pulse Oximetry 95 96 94 L Intake & Output 10/04/17 10/04/17 10/05/17 06:59 18:59 06:59 Intake Total 200 / 200 1240 / 1240 1500 / 1500 Output Total 200 / 200 250 / 250 Balance 200 / 200 1040 / 1040 1250 / 1250 Weight 179.7 kg 179.8 kg Intake: IV 200 / 200 400 / 400 300 / 300 Pfizerpen-G Inj 3,000,000 UNIT 200 / 200 300 / 300 300 / 300 In NS Inj 100 ML @ 200 mls/hr IV.SIG Q4H [facility] Rx#:[id number] Oral 840 / 840 1200 / 1200 Output: Urine 200 / 200 250 / 250 Other: # Voids 2 4 3 Date of Last Bowel Movement 10/02/17 10/04/17 # Bowel Movements 2 Narrative: Gen: pleasant white male in no distress. He is morbidly obese. Alert and oriented. HEENT: Pupils equal, EOMs intact, mouth without lesions Neck: No JVD, neck is supple Heart: Regular rate and rhythm without murmurs or gallops Lungs: Clear to auscultation, no wheeze or crackle. Abdomen: Soft, nontender, obese, no masses. Bowel sounds normal. Extremities: Bilateral lower extremity edema/lymphedema noted. Left lower extremity with worse edema than right but both improved from previous per patient and per review of exam history. He has a significant cellulitis of the left lower leg that extends from the foot to the knee. Pulses are palpated in the feet. The previous bullous areas with yellow fluid underneath have dried and eschar formation is noted. He does have a couple of small bullous lesions on the distal left ankle. No active draining. Neuro: Alert, oriented, normal motor exam, sensation intact Results - Labs CBC & Chem 7: 10/04/17 07:00 10/04/17 07:00 Laboratory Results - last 24 hr 10/04/17 10/04/17 07:00 07:00 CBC w Diff Auto diff final WBC 11.9 H RBC 4.10 L Hgb 11.7 L Hct 34.1 L MCV 83.3 MCH 28.6 MCHC 34.3 RDW 14.2 Plt Count 613 H MPV 8.1 Neut % (Auto) 69.1 Lymph % (Auto) 21.5 [place] % (Auto) 6.8 Eos % (Auto) 2.2 Baso % (Auto) 0.4 Neut # (Auto) 8.2 H Lymph # (Auto) 2.5 [place] # (Auto) 0.8 Eos # (Auto) 0.3 Baso # (Auto) 0.0 WBC Differential . Differential Comment . Sodium 138 Potassium 4.2 Chloride 101 Carbon Dioxide 30.3 Anion Gap 7 BUN 11 Creatinine 0.82 Estimated GFR Greater than 89 Random Glucose 97 Calcium 8.4 L Assessment and Plan - Assessment (1) Cellulitis of left lower leg Code(s): L03.116 - Cellulitis of left lower limb Status: Acute Plan: Clinically much improved. Appreciate ID input. Continue current medication and hopefully can convert to oral antibiotics later today with plan to discharge thereafter if he tolerates oral antibiotics and continues to improve. He has good social support at home. (2) Lower extremity edema Code(s): R60.0 - Localized edema Status: Chronic Plan: states his primary has done extensive work up as outpatient. Continue current diuretic as he does not want higher dose due to increased urinary frequency. Continue elevation of lower extremities. Continue DVT prophylaxis due to prolonged immobility. (3) AMINA (obstructive sleep apnea) Code(s): G47.33 - Obstructive sleep apnea (adult) (pediatric) Status: Chronic Plan: continue cpap (4) COPD (chronic obstructive pulmonary disease) Code(s): J44.9 - Chronic obstructive pulmonary disease, unspecified Status: Suspected Plan: will continue on oxygen. Oxygen saturations and respiratory symptoms doing well with ventolin inhaler Strongly encouraged tobacco cessation. He is using NicoDerm patch presently. (5) Elevated liver enzymes Code(s): R74.8 - Abnormal levels of other serum enzymes Status: Chronic (6) Morbid obesity Code(s): E66.01 - Morbid (severe) obesity due to excess calories Status: Chronic Plan: Strongly encouraged weight loss. - Plan Code Status: full (4) COPD (chronic obstructive pulmonary disease) Qualifiers: COPD type: unspecified COPD Qualified Code(s): J44.9 - Chronic obstructive pulmonary disease, unspecified
[2017-10-05] MEDS: Furosemide 40 MG Tablet PO SCH (09:45)
[2017-10-05] MEDS: Enoxaparin Inj 40 MG/0.4 ML Syringe SQ SCH (17:05)
[2017-10-05] MEDS: Acetaminophen 325 MG Tablet PO PRN (22:52)
[2017-10-05] MEDS: Temazepam 15 MG Capsule PO PRN (22:52)
--- NOTE | 2017-10-06 06:51 | P.PN ---
Subjective Interval history: Feeling better and happy to have IV out. No fevers. Has been ambulating in room independently. Leg swelling improving. Physical Exam Vital signs: Vital Signs 10/05/17 08:00 10/05/17 12:00 10/05/17 16:00 Temperature 96.8 F L 97.6 F 96.6 F L Pulse Rate 83 83 97 H Respiratory Rate 18 18 18 Blood Pressure 128/78 140/81 159/81 H Pulse Oximetry 95 95 95 10/05/17 20:00 10/06/17 00:00 Temperature 97.5 F L 98.3 F Pulse Rate 88 92 H Respiratory Rate 20 20 Blood Pressure 137/84 137/74 Pulse Oximetry 95 93 L Intake & Output 10/05/17 10/05/17 10/06/17 06:59 18:59 06:59 Intake Total 1600 / 1600 1040 / 1040 480 / 480 Output Total 250 / 250 1300 / 1300 1500 / 1500 Balance 1350 / 1350 -260 / -260 -1020 / -1020 Weight 179.8 kg 179.8 kg Intake: IV 400 / 400 Pfizerpen-G Inj 3,000,000 UNIT 400 / 400 In NS Inj 100 ML @ 200 mls/hr IV.SIG Q4H ISHAN Rx#:[id number] Oral 1200 / 1200 1040 / 1040 480 / 480 Output: Urine 250 / 250 1300 / 1300 1500 / 1500 Other: # Voids 3 Date of Last Bowel Movement 10/04/17 10/05/17 10/05/17 # Bowel Movements 1 Narrative: Gen: pleasant, morbidly obese white male in no distress. Alert and oriented. Awake. Cooperative with exam. HEENT: Pupils equal, EOMs intact, mouth without lesions Neck: No JVD, neck is supple Heart: Regular rate and rhythm without murmurs or gallops Lungs: Clear to auscultation, no wheeze or crackle. Abdomen: Soft, nontender, obese, no masses. Bowel sounds normal. Extremities: Bilateral lower extremity edema/lymphedema noted. Left lower extremity with worse edema than right but both improving. He has a significant cellulitis of the left lower leg that extends from the foot to the knee. Pulses are palpable distally. The previous bullous areas with yellow fluid underneath have dried and eschar formation is noted. He does have a couple of small bullous lesions on the distal left ankle. No active draining. Neuro: Alert, oriented, normal motor exam, sensation intact Results - Labs CBC & Chem 7: 10/04/17 07:00 10/04/17 07:00 Assessment and Plan - Assessment (1) Cellulitis of left lower leg Code(s): L03.116 - Cellulitis of left lower limb Status: Acute Plan: Clinically much improved. Appreciate ID input. Converted to oral antibiotics on 10/05 and will hopefully discharge home tomorrow. He has good social support at home. (2) Lower extremity edema Code(s): R60.0 - Localized edema Status: Chronic Plan: states his primary has done extensive work up as outpatient. Continue current diuretic as he does not want higher dose due to increased urinary frequency. Continue elevation of lower extremities. Continue DVT prophylaxis due to prolonged immobility. (3) AMINA (obstructive sleep apnea) Code(s): G47.33 - Obstructive sleep apnea (adult) (pediatric) Status: Chronic Plan: continue cpap. Advised weight loss (4) COPD (chronic obstructive pulmonary disease) Code(s): J44.9 - Chronic obstructive pulmonary disease, unspecified Status: Suspected Plan: will continue on oxygen. Oxygen saturations and respiratory symptoms doing well with ventolin inhaler Strongly encouraged tobacco cessation. He is using NicoDerm patch presently. He agrees to continue smoking cessation attempts at home. It is noted that his does smoke in the home however. (5) Elevated liver enzymes Code(s): R74.8 - Abnormal levels of other serum enzymes Status: Chronic Plan: Had been improving. Will recheck prior to discharge. (6) Morbid obesity Code(s): E66.01 - Morbid (severe) obesity due to excess calories Status: Chronic Plan: Strongly encouraged weight loss. - Plan Discussed Condition With: Patient Discharge Planning: Hopefully discharge home tomorrow with home health for wound care. (4) COPD (chronic obstructive pulmonary disease) Qualifiers: COPD type: unspecified COPD Qualified Code(s): J44.9 - Chronic obstructive pulmonary disease, unspecified
--- NOTE | 2017-10-06 06:52 | P.DCO ---
- Home Health Nursing Order: Wound care and dressing changes Instructions: Dressing change once daily. - Certification I have seen patient Walker Villar on 10/06/17. My clinical findings support the need for the requested home health care services because: Limited mobility due to disease progression, Deconditioned with increased weakness, Infection with risk of complications I certify that my clinical findings support that this patient is homebound because: Unsteady gait/balance
[2017-10-06] MEDS: Furosemide 40 MG Tablet PO SCH (08:30)
[2017-10-06 09:03] LABS: Baso # (Auto) 0.1 th/mm3 (0.0-0.2); Baso % (Auto) 0.6 % (0.0-2.0); Eos # (Auto) 0.2 th/mm3 (0.0-0.4); Eos % (Auto) 1.8 % (0.0-4.0); Hematocrit 36.9 % (39.0-51.0); Lymph # (Auto) 2.3 th/mm3 (1.0-4.8); Lymph % (Auto) 20.8 % (9.0-44.0); Mean Corpuscular HGB Conc 32.6 % (32.0-36.0); Mean Corpuscular Hemoglobin 27.8 pg (27.0-34.0); Mean Corpuscular Volume 85.2 fL (80.0-100.0); Mean Platelet Volume 7.4 fL (7.0-11.0); Mono # (Auto) 0.8 th/mm3 (0.0-0.9); Mono % (Auto) 7.6 % (0.0-8.0); Neut # (Auto) 7.6 th/mm3 (1.8-7.7); Neut % (Auto) 69.2 % (16.0-70.0); Platelet Count 629 th/mm3 (150-450); Red Blood Count 4.32 mil/mm3 (4.50-5.90); Red Cell Distribution Width 13.8 % (11.6-17.2)
[2017-10-06 09:10] LABS: Chloride 102 meq/L (98-107); Potassium 4.1 meq/L (3.5-5.1); Sodium 139 meq/L (136-145)
[2017-10-06 09:14] LABS: Albumin 2.1 g/dL (3.4-5.0); Anion Gap 6 meq/L (5-15); Blood Urea Nitrogen 12 mg/dL (7-18); Calcium 8.5 mg/dL (8.5-10.1); Glucose,Random 126 mg/dL (74-106)
[2017-10-06 09:17] LABS: Alanine Aminotransferase 56 U/L (12-78); Aspartate Aminotransferase 32 U/L (15-37)
[2017-10-06 09:18] LABS: Glomerular Filtration Rate Greater Than 89 mL/min (>89)
[2017-10-06 09:19] LABS: Total Protein 6.8 g/dL (6.4-8.2)
[2017-10-06 09:20] LABS: Alkaline Phosphatase 138 U/L (45-117)
--- NOTE | 2017-10-06 09:41 | P.DS ---
Date of admission: 09/21/17 15:45 Primary care physician: Khris Lopez MD Attending physician on discharge: Lara Wilcox Brief History from admission: States that last pm at around 8 to 830 developed sudden onset of chills and malaise. Had been in usual state of health no other symptoms, no cough (other then his regular smokers cough) no sob, no abdominal pain or change in bowel movements, no difficulyu voiding , he has chronic lower extremity edema at baseline, he does state that he had some left groin discomfort that at this point is resolved. He took 4 ibuprofen pm last night to help with the chills. When he felt no better he came to the ER today. He states when he lowered his pants was when the redness in his left leg became noticeable. He denies any pain to the leg unless it is touched, he recalls no injury or cut to his left leg. DS: Diagnosis - Discharge Diagnosis (1) Cellulitis of left lower leg Status: Acute (2) Lower extremity edema Status: Chronic (3) COPD (chronic obstructive pulmonary disease) Status: Chronic (4) Elevated liver enzymes Status: Acute (5) Morbid obesity Status: Chronic (6) AMINA (obstructive sleep apnea) Status: Chronic DS: Medications - Discharge Medications Prescriptions: albuterol sulfate [Ventolin HFA] 2 puff INH Q4H PRN #1 g PRN Reason: sob enoxaparin [Lovenox] 40 mg SUB-Q Q24H 14 Days #5.6 ml furosemide 40 mg PO DAILY #31 tab nicotine 1 patch TRANSDERMAL DAILY #30 ea penicillin V potassium 500 mg PO Q6HR #56 tab temazepam 15 mg PO HS PRN #14 cap PRN Reason: Insomnia tramadol [Ultram] 100 mg PO Q6H PRN #30 tab PRN Reason: Pain Scale 6 To 10 DS: Summary Hospital Course: Pt admitted for f/c and increased edema/redness particularly in LLE. Redness was reportedly rapidly progressing at time of admission. Noted to have elevated WBC and fever on admission. Venous doppler was neg for clot. Pt was started on Vancomycin and remained on med until 09/23. ID consult obtained and pt was on Ancef 09/22-09/30. ID switched pt to PCN G IV on 09/30, this was converted to oral PCN-V on 10/05. Pt continued to slowly improve. Blood and wound cltx remained negative. Fevers resolved and WBC normalized. Lovenox was used for DVT prophylaxis. He has been instructed to lose weight, keep LE elevated when possible and stop smoking. He will continue Nicoderm at d/c and hopefully will remain abstinent of smoking. Pt was noted to have elevated LFTs early during admission. CT was neg for acute findings and noted for likely fatty liver. LFTs normalized prior to d/c and the rise was likely a/w abx use/infection. Pt will continue to elevate LE at home and will remain on oral abx for 2 weeks. - Time Spent with Patient Total time spent providing and/or coordinating discharge services: Less than 30 minutes - Quality: VTE Deep Vein Thrombosis/Pulmonary Embolism Present on Admission: No Exam Vital signs: Vital Signs 10/05/17 12:00 10/05/17 16:00 10/05/17 20:00 Temperature 97.6 F 96.6 F L 97.5 F L Pulse Rate 83 97 H 88 Respiratory Rate 18 18 20 Blood Pressure 140/81 159/81 H 137/84 Pulse Oximetry 95 95 95 10/06/17 00:00 10/06/17 08:00 Temperature 98.3 F 98.2 F Pulse Rate 92 H 85 Respiratory Rate 20 20 Blood Pressure 137/74 146/90 H Pulse Oximetry 93 L 94 L Intake & Output 10/05/17 10/06/17 10/06/17 18:59 06:59 18:59 Intake Total 1040 / 1040 480 / 480 Output Total 1300 / 1300 1500 / 1500 Balance -260 / -260 -1020 / -1020 Weight 179.8 kg Intake: Oral 1040 / 1040 480 / 480 Output: Urine 1300 / 1300 1500 / 1500 Other: Date of Last Bowel Movement 10/05/17 10/05/17 # Bowel Movements 1 Results Procedures completed during hospitalization: none Labs on day of discharge: Labs from last 24 hours 10/06/17 10/06/17 08:43 08:43 CBC w Diff Auto diff final WBC 11.0 RBC 4.32 L Hgb 12.0 L Hct 36.9 L MCV 85.2 MCH 27.8 MCHC 32.6 RDW 13.8 Plt Count 629 H MPV 7.4 Neut % (Auto) 69.2 Lymph % (Auto) 20.8 [place] % (Auto) 7.6 Eos % (Auto) 1.8 Baso % (Auto) 0.6 Neut # (Auto) 7.6 Lymph # (Auto) 2.3 [place] # (Auto) 0.8 Eos # (Auto) 0.2 Baso # (Auto) 0.1 WBC Differential . Differential Comment . Sodium 139 Potassium 4.1 Chloride 102 Carbon Dioxide 31.0 Anion Gap 6 BUN 12 Creatinine 0.85 Estimated GFR Greater than 89 Random Glucose 126 H Calcium 8.5 Total Bilirubin 0.4 AST 32 ALT 56 Alkaline Phosphatase 138 H Total Protein 6.8 D Albumin 2.1 L - Impressions ITS Impressions Venous Doppler Study 09/21/17 14:03 CONCLUSION: 1. Negative for deep venous thrombosis. Abdomen Ultrasound 09/27/17 00:00 CONCLUSION: 1. Cholelithiasis. 2. The liver is slightly echogenic which may be due to fatty infiltration and or hepatocellular dysfunction. Discharge Plan - Discharge Disposition Patient Disposition: /Home Health Service - Discharge Condition Condition: Fair - Discharge Order Discharge Orders: Discharge Order (Routine); Ordered 10/07/17 Ordered By: Jensen Smith - Discharge Details Anticipated Discharge Date: 10/07/17 - Physicians Team Primary Care Provider: Khris Lopez Attending Provider: Lara Wilcox Other Providers: Dunia Boo MD
[2017-10-06] MEDS: Enoxaparin Inj 40 MG/0.4 ML Syringe SQ SCH (17:43)
[2017-10-06] MEDS: Temazepam 15 MG Capsule PO PRN (23:46)
--- NOTE | 2017-10-07 07:04 | P.PN ---
Subjective Interval history: Overall feeling better. Leg is improved. He is excited about the possibility of discharge home today. No fevers or chills. Tolerating oral intake. Has been ambulating with the assistance of a front wheeled walker. Physical Exam Vital signs: Vital Signs 10/06/17 08:00 10/06/17 08:30 10/06/17 12:00 Temperature 98.2 F 98.1 F Pulse Rate 85 87 Respiratory Rate 20 20 Blood Pressure 146/90 H 148/91 H Pulse Oximetry 94 L 96 93 L 10/06/17 16:00 10/06/17 20:00 10/06/17 20:10 Temperature 97.5 F L 98.6 F Pulse Rate 85 90 Respiratory Rate 20 20 Blood Pressure 136/89 139/74 Pulse Oximetry 93 L 95 92 L 10/07/17 00:00 10/07/17 00:15 Temperature 98.9 F Pulse Rate 96 H Respiratory Rate 20 Blood Pressure 120/70 Pulse Oximetry 93 L 94 L Intake & Output 10/06/17 10/07/17 10/07/17 18:59 06:59 18:59 Intake Total 1800 / 1800 480 / 480 Output Total 2300 / 2300 800 / 800 Balance -500 / -500 -320 / -320 Weight 172.3 kg Intake: Oral 1800 / 1800 480 / 480 Output: Urine 2300 / 2300 800 / 800 Other: Date of Last Bowel Movement 10/05/17 10/06/17 # Bowel Movements 2 2 Narrative: Gen: pleasant, morbidly obese white male in no distress. Alert and oriented. Awake. Cooperative with exam. HEENT: Pupils equal, EOMs intact Neck: No JVD, neck is supple Heart: Regular rate and rhythm without murmurs or gallops Lungs: Clear to auscultation, no wheeze or crackle. Abdomen: Soft, nontender, obese, no masses. Bowel sounds normal. Extremities: Bilateral lower extremity edema/lymphedema noted. Left lower extremity with worse edema than right but both improving. He has a significant cellulitis of the left lower leg that extends from the foot to the knee. Pulses are palpable distally. The previous bullous areas with yellow fluid underneath have dried and eschar formation is noted. No active draining. Neuro: Alert, oriented, normal motor exam, sensation intact Results - Labs CBC & Chem 7: 10/06/17 08:43 10/06/17 08:43 Laboratory Results - last 24 hr 10/06/17 10/06/17 08:43 08:43 CBC w Diff Auto diff final WBC 11.0 RBC 4.32 L Hgb 12.0 L Hct 36.9 L MCV 85.2 MCH 27.8 MCHC 32.6 RDW 13.8 Plt Count 629 H MPV 7.4 Neut % (Auto) 69.2 Lymph % (Auto) 20.8 [place] % (Auto) 7.6 Eos % (Auto) 1.8 Baso % (Auto) 0.6 Neut # (Auto) 7.6 Lymph # (Auto) 2.3 [place] # (Auto) 0.8 Eos # (Auto) 0.2 Baso # (Auto) 0.1 WBC Differential . Differential Comment . Sodium 139 Potassium 4.1 Chloride 102 Carbon Dioxide 31.0 Anion Gap 6 BUN 12 Creatinine 0.85 Estimated GFR Greater than 89 Random Glucose 126 H Calcium 8.5 Total Bilirubin 0.4 AST 32 ALT 56 Alkaline Phosphatase 138 H Total Protein 6.8 D Albumin 2.1 L - Procedures none Assessment and Plan - Assessment (1) Cellulitis of left lower leg Code(s): L03.116 - Cellulitis of left lower limb Status: Acute Plan: Clinically much improved. Appreciate ID input. Converted to oral antibiotics on 10/05 and will discharge home today with home health for wound care. He will need front wheeled walker as well. He has good social support at home. (2) Lower extremity edema Code(s): R60.0 - Localized edema Status: Chronic Plan: states his primary has done extensive work up as outpatient. Continue current diuretic as he does not want higher dose due to increased urinary frequency. Continue elevation of lower extremities. Continue DVT prophylaxis due to prolonged immobility. (3) COPD (chronic obstructive pulmonary disease) Code(s): J44.9 - Chronic obstructive pulmonary disease, unspecified Status: Chronic Plan: will continue on oxygen. Oxygen saturations and respiratory symptoms doing well with ventolin inhaler Strongly encouraged tobacco cessation. He is using NicoDerm patch presently. He agrees to continue smoking cessation attempts at home. It is noted that his does smoke in the home however. (4) Elevated liver enzymes Code(s): R74.8 - Abnormal levels of other serum enzymes Status: Acute Plan: LFTs much improved. (5) Morbid obesity Code(s): E66.01 - Morbid (severe) obesity due to excess calories Status: Chronic Plan: Strongly encouraged weight loss. (6) AMINA (obstructive sleep apnea) Code(s): G47.33 - Obstructive sleep apnea (adult) (pediatric) Status: Chronic Plan: continue cpap. Advised weight loss - Plan Discharge Planning: Discharge home today with home health for wound care. (3) COPD (chronic obstructive pulmonary disease) Qualifiers: COPD type: unspecified COPD Qualified Code(s): J44.9 - Chronic obstructive pulmonary disease, unspecified
[2017-10-07] MEDS: Furosemide 40 MG Tablet PO SCH (08:51)
[2017-10-07 18:05] VITALS: BP 138/80; PULSE 83; O2SAT 93
[2017-10-07 20:03] VITALS: RESP 20
== END 2017-10-07 09:51 | disposition home health service (06) ==
LOC: PHED 13:29 → PHEDA 15:45 → PH3 17:16
PROVIDERS: ADMIT Legal Medicine; ATTEND Legal Medicine